=== PATIENT | female | born 1940 | race Caucasian/White ===

== ENCOUNTER → 2017-03-22 13:11 | Outpatient (CLI) | payer MEDICARE, SELFPAY ==
[2017-03-22 17:08] LABS: Absolute Lymphocyte Count 2.73 X10^3/ul (0.83-4.51); Absolute Neutrophil Count 9.5 X10^3/uL (2.0-7.7); Basophil# 0.04 X10^3/uL; Basophil% 0.3 % (0-1); Eosinophil# 0.24 X10^3/uL; Eosinophils% 1.8 % (0-5); Hematocrit 39.9 % (37-47); Hemoglobin 13.5 g/dl (12.0-15.0); Lymphocyte # 2.73 X10^3/ul (4.0); Lymphocyte % 20.4 % (19-41); Mean Corp Hgb Conc 33.8 g/gl (32-36); Mean Corpuscular Volume 88.7 fL (81-99); Mean Platelet Vol. 10.8 fl (6.2-12.0); Monocyte# 0.89 X10^3/uL; Monocyte% 6.6 % (0-10); Neutrophil # 9.48 X10^3/uL (2.7-7.7); Neutrophil % 70.7 % (47-70); Platelet Count 264 K/mm3 (150-450); RBC Distribution Width CV 12.9 % (11.6-14.6); RBC Distribution Width SD 41.7 fl (35.1-43.9); White Blood Count 13.4 K/mm3 (4.4-11.0)
[2017-03-22 17:13] LABS: POSITIVE COUNT NO; POSITIVE DIFFERENTIAL NO; POSITIVE MORPHOLOGY NO
[2017-03-22 17:23] LABS: Vitamin D,25 Hydroxy 24.8 ng/mL (19.95-100.01)
[2017-03-22 17:29] LABS: AST(SGOT) 24 U/L (15-37); Alanine Aminotransfer ALT/SGPT 26 U/L (13-56); Albumin, Serum 3.6 g/dL (3.2-5.0); Alkaline Phosphatase 100 U/L (45-117); Anion Gap 10 (5-15); BUN 21 mg/dL (7-18); BUN/Creat Ratio 22.6 RATIO (10-20); Calcium,Total 8.8 mg/dL (8.5-10.1); Chloride 104 mmol/L (98-107); Creatinine, Serum 0.93 mg/dL (0.55-1.02); EST Glomerular Filtration Rate 62 mL/min (>60); Est Glom Filt Rate - Afr Amer 76 mL/min (>60); Globulin 3.5 g/dL (2.2-4.2); Glucose 139 mg/dL (74-106); Potassium 4.2 mmol/L (3.5-5.1); Protein, Total 7.1 g/dL (6.4-8.2); Sodium Level 138 mmol/L (136-145); Thyroid Stim Hormone (TSH) 1.09 uIU/mL (0.358-3.74)
[2017-03-23 11:21] LABS: Hemoglobin A1c 7.8 % (4.2-6.3)
== END ==
PROVIDERS: Family Provider Family Medicine Geriatric Medicine; PCP Family Medicine Geriatric Medicine; Visit Provider Family Medicine Geriatric Medicine
DX: I10 Essential (primary) hypertension (principal); E55.9 Vitamin D deficiency, unspecified; E16.2 Hypoglycemia, unspecified
CPT/HCPCS: 36415; 80053; 82306; 83036; 84443; 85025

== ENCOUNTER 2017-04-14 10:00 | Outpatient (RCR) | payer MEDICARE, SELFPAY | END 2017-04-14 10:01 | disposition home or self-care (01) | LOC: DC 10:00 | PROVIDERS: Family Provider Family Medicine Geriatric Medicine; PCP Family Medicine Geriatric Medicine; Visit Provider Family Medicine Geriatric Medicine | DX: E11.9 Type 2 diabetes mellitus without complications (principal); Z71.3 Dietary counseling and surveillance | CPT/HCPCS: 97802; G0108 ==

== ENCOUNTER 2017-05-11 10:25 | Outpatient (RCR) | payer MEDICARE, SELFPAY | END 2017-05-15 23:59 | LOC: DC 10:25 | PROVIDERS: Family Provider Family Medicine Geriatric Medicine; PCP Family Medicine Geriatric Medicine; Visit Provider Family Medicine Geriatric Medicine | DX: E11.9 Type 2 diabetes mellitus without complications (principal); Z71.3 Dietary counseling and surveillance | CPT/HCPCS: 97803 ==

== ENCOUNTER → 2017-05-19 16:04 | Outpatient (CLI) | payer MEDICARE, SELFPAY ==
--- NOTE | 2017-05-19 16:09 | MRI_ITS ---
STUDY: MRI LUMBAR SPINE WITHOUT CONTRAST REASON FOR EXAM: Female, 77 years old. WORSENING LBP, H/O ARTHRITIS TECHNIQUE: Standardized fat and water weighted pulse sequences were obtained in the sagittal and axial planes. COMPARISON: None FINDINGS: T12-L1: Endplate spondylosis. Decreased disc height and small circumferential disc bulge. Degenerative changes of the bilateral facet joints. Mild narrowing of the central canal and bilateral intervertebral neural foramina. Normal lumbar lordosis. There is no substantial scoliosis. Normal conus medullaris that terminates at the L1 level L1-2: Endplate spondylosis. Decreased disc height and small circumferential disc bulge. Degenerative changes of the bilateral facet joints. Mild narrowing of the central canal and bilateral intervertebral neural foramina. L2-3: Endplate spondylosis. Decreased disc height and small circumferential disc bulge. Degenerative changes of the bilateral facet joints. Mild narrowing of the central canal and bilateral intervertebral neural foramina. L3-4: Endplate spondylosis. Decreased disc height and small circumferential disc bulge. Degenerative changes of the bilateral facet joints. Mild narrowing of the central canal and bilateral intervertebral neural foramina. L4-5: Endplate spondylosis. Decreased disc height and small circumferential disc bulge. Degenerative changes of the bilateral facet joints. Mild narrowing of the central canal and bilateral intervertebral neural foramina. L5-S1: Endplate spondylosis. Decreased disc height and small circumferential disc bulge. Degenerative changes of the bilateral facet joints. Mild narrowing of the central canal and moderate narrowing of the bilateral intervertebral neural foramina. Normal visualized sacral ala. There are multiple small bilateral renal cysts. MRI/Spine Lumbar (Routine) IMPRESSION: Multilevel degenerative changes, as described above. Electronically Signed: Sugar Cuba MD at 6:58 EDT Tel , Service support ,
== END ==
PROVIDERS: Family Provider Family Medicine Geriatric Medicine; PCP Family Medicine Geriatric Medicine; Visit Provider Anesthesiology Pain Medicine
DX: M54.9 Dorsalgia, unspecified (principal); M79.606 Pain in leg, unspecified
CPT/HCPCS: 72148

== ENCOUNTER 2017-05-20 15:24 | Outpatient (RCR) | payer MEDICARE, SELFPAY | END 2017-06-14 23:59 | LOC: DC 15:24 | PROVIDERS: Family Provider Family Medicine Geriatric Medicine; PCP Family Medicine Geriatric Medicine; Visit Provider Family Medicine Geriatric Medicine | DX: E11.9 Type 2 diabetes mellitus without complications (principal); Z71.3 Dietary counseling and surveillance | CPT/HCPCS: G0109 ==

== ENCOUNTER → 2017-06-23 13:18 | Outpatient (CLI) | payer MEDICARE, SELFPAY ==
[2017-06-23 17:01] LABS: Absolute Lymphocyte Count 2.21 X10^3/ul (0.83-4.51); Basophil# 0.03 X10^3/uL; Basophil% 0.2 % (0-1); Eosinophil# 0.08 X10^3/uL; Eosinophils% 0.7 % (0-5); Hemoglobin 13.9 g/dl (12.0-15.0); Lymphocyte # 2.21 X10^3/ul (4.0); Lymphocyte % 18.2 % (19-41); Mean Corp Hgb Conc 33.9 g/gl (32-36); Mean Corpuscular Hgb 30.4 pg (27.0-32.0); Mean Corpuscular Volume 89.7 fL (81-99); Mean Platelet Vol. 10.9 fl (6.2-12.0); Monocyte# 0.81 X10^3/uL; Monocyte% 6.7 % (0-10); Neutrophil # 8.98 X10^3/uL (2.7-7.7); Platelet Count 257 K/mm3 (150-450); RBC Distribution Width CV 13.7 % (11.6-14.6); RBC Distribution Width SD 44.4 fl (35.1-43.9); Red Blood Count 4.57 M/mm3 (4.2-5.4); White Blood Count 12.1 K/mm3 (4.4-11.0)
[2017-06-23 17:02] LABS: POSITIVE COUNT NO; POSITIVE DIFFERENTIAL NO; POSITIVE MORPHOLOGY NO
[2017-06-23 17:26] LABS: ALB/GLOB Ratio 1.1 RATIO (0.9-2.4); AST(SGOT) 20 U/L (15-37); Alanine Aminotransfer ALT/SGPT 25 U/L (13-56); Albumin, Serum 3.8 g/dL (3.2-5.0); Alkaline Phosphatase 75 U/L (45-117); Anion Gap 11 (5-15); BUN 22 mg/dL (7-18); BUN/Creat Ratio 16.3 RATIO (10-20); Calcium,Total 9.2 mg/dL (8.5-10.1); Chloride 106 mmol/L (98-107); Creatinine, Serum 1.35 mg/dL (0.55-1.02); EST Glomerular Filtration Rate 41 mL/min (>60); Est Glom Filt Rate - Afr Amer 49 mL/min (>60); Globulin 3.4 g/dL (2.2-4.2); Glucose 113 mg/dL (74-106); Potassium 4.5 mmol/L (3.5-5.1); Protein, Total 7.2 g/dL (6.4-8.2); Sodium Level 140 mmol/L (136-145); Thyroid Stim Hormone (TSH) 0.69 uIU/mL (0.358-3.74)
[2017-06-23 17:55] LABS: Vitamin D,25 Hydroxy 41.1 ng/mL (29.95-100.01)
== END ==
PROVIDERS: Family Provider Family Medicine Geriatric Medicine; PCP Family Medicine Geriatric Medicine; Visit Provider Family Medicine Geriatric Medicine
DX: I10 Essential (primary) hypertension (principal); E55.9 Vitamin D deficiency, unspecified
CPT/HCPCS: 36415; 80053; 82306; 84443; 85025

== ENCOUNTER 2017-07-07 13:56 | Outpatient (RCR) | payer MEDICARE, SELFPAY | END 2017-07-15 23:59 | LOC: DC 13:56 | PROVIDERS: Family Provider Family Medicine Geriatric Medicine; PCP Family Medicine Geriatric Medicine; Visit Provider Family Medicine Geriatric Medicine | DX: E11.9 Type 2 diabetes mellitus without complications (principal); Z71.3 Dietary counseling and surveillance | CPT/HCPCS: G0109 ==

== ENCOUNTER 2017-07-28 15:43 | Outpatient (RCR) | payer MEDICARE, SELFPAY | END 2017-08-14 23:59 | LOC: DC 15:43 | PROVIDERS: Family Provider Family Medicine Geriatric Medicine; PCP Family Medicine Geriatric Medicine; Visit Provider Family Medicine Geriatric Medicine | DX: E11.9 Type 2 diabetes mellitus without complications (principal); Z71.3 Dietary counseling and surveillance | CPT/HCPCS: G0109 ==

== ENCOUNTER 2017-08-25 15:11 | Outpatient (RCR) | payer MEDICARE, SELFPAY | END 2017-09-14 23:59 | LOC: DC 15:11 | PROVIDERS: Family Provider Family Medicine Geriatric Medicine; PCP Family Medicine Geriatric Medicine; Visit Provider Family Medicine Geriatric Medicine | DX: E11.9 Type 2 diabetes mellitus without complications (principal); Z71.3 Dietary counseling and surveillance | CPT/HCPCS: G0109 ==

== ENCOUNTER → 2017-09-22 11:50 | Outpatient (CLI) | payer MEDICARE, SELFPAY ==
[2017-09-22 12:53] LABS: Absolute Lymphocyte Count 2.12 X10^3/ul (0.83-4.51); Absolute Neutrophil Count 6.8 X10^3/uL (2.0-7.7); Basophil# 0.04 X10^3/uL; Basophil% 0.4 % (0-1); Hematocrit 39.7 % (37-47); Hemoglobin 13.3 g/dl (12.0-15.0); Lymphocyte # 2.12 X10^3/ul (4.0); Lymphocyte % 21.5 % (19-41); Mean Corp Hgb Conc 33.5 g/gl (32-36); Mean Corpuscular Hgb 30.3 pg (27.0-32.0); Mean Corpuscular Volume 90.4 fL (81-99); Mean Platelet Vol. 10.4 fl (6.2-12.0); Monocyte# 0.67 X10^3/uL; Monocyte% 6.8 % (0-10); Neutrophil % 69.2 % (47-70); Platelet Count 228 K/mm3 (150-450); RBC Distribution Width SD 42.6 fl (35.1-43.9); Red Blood Count 4.39 M/mm3 (4.2-5.4); White Blood Count 9.8 K/mm3 (4.4-11.0)
[2017-09-22 13:02] LABS: POSITIVE COUNT NO; POSITIVE DIFFERENTIAL NO; POSITIVE MORPHOLOGY NO
[2017-09-22 13:19] LABS: Vitamin D,25 Hydroxy 34.6 ng/mL (29.95-100.01)
[2017-09-22 13:25] LABS: ALB/GLOB Ratio 1.2 RATIO (0.9-2.4); AST(SGOT) 21 U/L (15-37); Alanine Aminotransfer ALT/SGPT 24 U/L (13-56); Albumin, Serum 3.8 g/dL (3.2-5.0); Alkaline Phosphatase 64 U/L (45-117); Anion Gap 11 (5-15); BUN 21 mg/dL (7-18); BUN/Creat Ratio 16.3 RATIO (10-20); Calcium,Total 9.3 mg/dL (8.5-10.1); Chloride 107 mmol/L (98-107); Creatinine, Serum 1.29 mg/dL (0.55-1.02); EST Glomerular Filtration Rate 43 mL/min (>60); Est Glom Filt Rate - Afr Amer 52 mL/min (>60); Globulin 3.2 g/dL (2.2-4.2); Glucose 99 mg/dL (74-106); Potassium 4.7 mmol/L (3.5-5.1); Sodium Level 142 mmol/L (136-145); Thyroid Stim Hormone (TSH) 0.38 uIU/mL (0.358-3.74)
== END ==
PROVIDERS: Family Provider Family Medicine Geriatric Medicine; PCP Family Medicine Geriatric Medicine; Visit Provider Family Medicine Geriatric Medicine
DX: E11.9 Type 2 diabetes mellitus without complications (principal); E55.9 Vitamin D deficiency, unspecified; I10 Essential (primary) hypertension
CPT/HCPCS: 36415; 80053; 82306; 84443; 85025

== ENCOUNTER → 2017-10-11 16:27 | Outpatient (CLI) | payer MEDICARE, SELFPAY | PROVIDERS: Family Provider Family Medicine Geriatric Medicine; PCP Family Medicine Geriatric Medicine; Visit Provider Family Medicine Geriatric Medicine | DX: R68.83 Chills (without fever) (principal) ==

== ENCOUNTER → 2017-10-13 12:48 | Outpatient (CLI) | payer MEDICARE, SELFPAY | PROVIDERS: Family Provider Family Medicine Geriatric Medicine; PCP Family Medicine Geriatric Medicine; Visit Provider Family Medicine Geriatric Medicine | DX: R68.83 Chills (without fever) (principal) | CPT/HCPCS: 87633 ==

== ENCOUNTER 2017-10-26 08:37 | Outpatient (RCR) | payer MEDICARE, SELFPAY | END 2017-10-26 23:59 | LOC: DC 08:37 | PROVIDERS: Family Provider Family Medicine Geriatric Medicine; PCP Family Medicine Geriatric Medicine; Visit Provider Family Medicine Geriatric Medicine | DX: E11.9 Type 2 diabetes mellitus without complications (principal); Z71.3 Dietary counseling and surveillance | CPT/HCPCS: 97803 ==

== ENCOUNTER → 2018-03-23 15:18 | Outpatient (CLI) | payer MEDICARE, SELFPAY ==
[2018-03-23 16:48] LABS: Absolute Lymphocyte Count 2.87 X10^3/ul (0.83-4.51); Absolute Neutrophil Count 9.2 X10^3/uL (2.0-7.7); Basophil# 0.04 X10^3/uL; Basophil% 0.3 % (0-1); Eosinophil# 0.12 X10^3/uL; Eosinophils% 0.9 % (0-5); Hematocrit 39.8 % (37-47); Hemoglobin 13.1 g/dl (12.0-15.0); Lymphocyte # 2.87 X10^3/ul (4.0); Lymphocyte % 21.9 % (19-41); Mean Corp Hgb Conc 32.9 g/gl (32-36); Mean Corpuscular Hgb 29.7 pg (27.0-32.0); Mean Corpuscular Volume 90.2 fL (81-99); Mean Platelet Vol. 10.9 fl (6.2-12.0); Monocyte# 0.87 X10^3/uL; Monocyte% 6.6 % (0-10); Neutrophil # 9.18 X10^3/uL (2.7-7.7); Neutrophil % 70.1 % (47-70); Platelet Count 248 K/mm3 (150-450); RBC Distribution Width CV 13.1 % (11.6-14.6); RBC Distribution Width SD 42.8 fl (35.1-43.9); Red Blood Count 4.41 M/mm3 (4.2-5.4); White Blood Count 13.1 K/mm3 (4.4-11.0)
[2018-03-23 16:55] LABS: POSITIVE COUNT NO; POSITIVE DIFFERENTIAL NO; POSITIVE MORPHOLOGY NO
[2018-03-23 17:08] LABS: ALB/GLOB Ratio 1.3 RATIO (0.9-2.4); AST(SGOT) 28 U/L (15-37); Alanine Aminotransfer ALT/SGPT 35 U/L (13-56); Alkaline Phosphatase 68 U/L (45-117); Anion Gap 12 (5-15); BUN 33 mg/dL (7-18); BUN/Creat Ratio 20.9 RATIO (10-20); Calcium,Total 9.5 mg/dL (8.5-10.1); Chloride 106 mmol/L (98-107); Creatinine, Serum 1.58 mg/dL (0.55-1.02); EST Glomerular Filtration Rate 34 mL/min (>60); Est Glom Filt Rate - Afr Amer 41 mL/min (>60); Glucose 113 mg/dL (74-106); Potassium 4.5 mmol/L (3.5-5.1); Sodium Level 139 mmol/L (136-145); Thyroid Stim Hormone (TSH) 0.19 uIU/mL (0.358-3.74)
[2018-03-23 17:28] LABS: Vitamin D,25 Hydroxy 30.8 ng/mL (29.95-100.01)
== END ==
PROVIDERS: Family Provider Family Medicine Geriatric Medicine; PCP Family Medicine Geriatric Medicine; Visit Provider Family Medicine Geriatric Medicine
DX: E11.9 Type 2 diabetes mellitus without complications (principal); E55.9 Vitamin D deficiency, unspecified; I10 Essential (primary) hypertension
CPT/HCPCS: 36415; 80053; 82306; 84443; 85025

== ENCOUNTER → 2018-05-10 09:13 | Outpatient (CLI) | payer MEDICARE, SELFPAY ==
[2018-05-10 13:05] LABS: Thyroid Stim Hormone (TSH) 1.28 uIU/mL (0.358-3.74)
== END ==
PROVIDERS: Family Provider Family Medicine Geriatric Medicine; PCP Family Medicine Geriatric Medicine; Visit Provider Family Medicine Geriatric Medicine
DX: E03.9 Hypothyroidism, unspecified (principal)
CPT/HCPCS: 36415; 84443

== ENCOUNTER → 2018-09-28 08:52 | Outpatient (CLI) | payer MEDICARE, SELFPAY ==
[2018-09-28 12:48] LABS: Absolute Lymphocyte Count 2.52 X10^3/uL (0.83-4.51); Absolute Neutrophil Count 6.5 X10^3/uL (2.0-7.7); Basophil# 0.05 X10^3/uL; Basophil% 0.5 % (0-1); Eosinophil# 0.24 X10^3/uL; Eosinophils% 2.4 % (0-5); Hematocrit 38.7 % (37-47); Hemoglobin 13.1 g/dL (12.0-15.0); Lymphocyte # 2.52 X10^3/ul (4.0); Lymphocyte % 25.6 % (19-41); Mean Corp Hgb Conc 33.9 g/dL (32-36); Mean Corpuscular Hgb 30.4 pg (27.0-32.0); Mean Corpuscular Volume 89.8 fL (81-99); Mean Platelet Vol. 10.2 fl (6.2-12.0); Monocyte# 0.58 X10^3/uL; Monocyte% 5.9 % (0-10); NRBC Flagged by Analyzer 0 % (0-5); Neutrophil # 6.45 X10^3/uL (2.7-7.7); Neutrophil % 65.4 % (47-70); Platelet Count 211 K/mm3 (150-450); RBC Distribution Width CV 12.7 % (11.6-14.6); RBC Distribution Width SD 42.1 fl (35.1-43.9); Red Blood Count 4.31 M/mm3 (4.2-5.4); White Blood Count 9.9 K/mm3 (4.4-11.0)
[2018-09-28 13:08] LABS: ALB/GLOB Ratio 1.1 RATIO (0.9-2.4); AST(SGOT) 20 U/L (15-37); Alanine Aminotransfer ALT/SGPT 28 U/L (13-56); Albumin, Serum 3.6 g/dL (3.2-5.0); Alkaline Phosphatase 96 U/L (45-117); Anion Gap 9 (5-15); BUN 31 mg/dL (7-18); BUN/Creat Ratio 26.5 RATIO (10-20); Calcium,Total 9.3 mg/dL (8.5-10.1); Chloride 107 mmol/L (98-107); Creatinine, Serum 1.17 mg/dL (0.55-1.02); EST Glomerular Filtration Rate 48 mL/min (>60); Est Glom Filt Rate - Afr Amer 58 mL/min (>60); Globulin 3.4 g/dL (2.2-4.2); Glucose 101 mg/dL (74-106); Potassium 4.4 mmol/L (3.5-5.1); Sodium Level 142 mmol/L (136-145); Thyroid Stim Hormone (TSH) 1.41 uIU/mL (0.358-3.74); Vitamin D,25 Hydroxy 25.1 ng/mL (29.95-100.01)
== END ==
PROVIDERS: Family Provider Family Medicine Geriatric Medicine; PCP Family Medicine Geriatric Medicine; Visit Provider Family Medicine Geriatric Medicine
DX: E11.9 Type 2 diabetes mellitus without complications (principal); E55.9 Vitamin D deficiency, unspecified; I10 Essential (primary) hypertension
CPT/HCPCS: 36415; 80053; 82306; 84443; 85025

== ENCOUNTER → 2019-02-02 16:05 | Outpatient (CLI) | payer MEDICARE, SELFPAY ==
[2019-02-02 17:04] LABS: Absolute Lymphocyte Count 2.78 X10^3/uL (0.83-4.51); Absolute Neutrophil Count 6.5 X10^3/uL (2.0-7.7); Basophil# 0.04 X10^3/uL; Basophil% 0.4 % (0-1); Eosinophil# 0.23 X10^3/uL; Eosinophils% 2.2 % (0-5); Hematocrit 37.7 % (37-47); Hemoglobin 12.4 g/dL (12.0-15.0); Lymphocyte # 2.78 X10^3/ul (4.0); Lymphocyte % 26.9 % (19-41); Mean Corp Hgb Conc 32.9 g/dL (32-36); Mean Corpuscular Hgb 29.7 pg (27.0-32.0); Mean Corpuscular Volume 90.4 fL (81-99); Monocyte# 0.72 X10^3/uL; NRBC Flagged by Analyzer 0 % (0-5); Neutrophil # 6.52 X10^3/uL (2.7-7.7); Neutrophil % 63.2 % (47-70); Platelet Count 208 K/mm3 (150-450); RBC Distribution Width CV 12.8 % (11.6-14.6); RBC Distribution Width SD 42.2 fl (35.1-43.9); Red Blood Count 4.17 M/mm3 (4.2-5.4); White Blood Count 10.3 K/mm3 (4.4-11.0)
[2019-02-02 17:22] LABS: ALB/GLOB Ratio 1.2 RATIO (0.9-2.4); AST(SGOT) 21 U/L (15-37); Alanine Aminotransfer ALT/SGPT 21 U/L (13-56); Alkaline Phosphatase 89 U/L (45-117); Anion Gap 8 (5-15); BUN 28 mg/dL (7-18); BUN/Creat Ratio 23.7 RATIO (10-20); Calcium,Total 9.7 mg/dL (8.5-10.1); Chloride 111 mmol/L (98-107); Creatinine, Serum 1.18 mg/dL (0.55-1.02); EST Glomerular Filtration Rate 47 mL/min (>60); Est Glom Filt Rate - Afr Amer 57 mL/min (>60); Free T3 2.7 pg/mL (2.18-3.98); Globulin 3.3 g/dL (2.2-4.2); Glucose 103 mg/dL (74-106); Potassium 4.3 mmol/L (3.5-5.1); Protein, Total 7.3 g/dL (6.4-8.2); Sodium Level 143 mmol/L (136-145); T4 Free Direct 1.43 ng/dL (0.76-1.46); Thyroid Stim Hormone (TSH) 1.28 uIU/mL (0.358-3.74)
== END ==
PROVIDERS: Visit Provider Family Medicine
DX: E03.9 Hypothyroidism, unspecified (principal); R53.83 Other fatigue; Z51.81 Encounter for therapeutic drug level monitoring
CPT/HCPCS: 36415; 80053; 84439; 84443; 84481; 85025

== ENCOUNTER → 2019-04-05 08:26 | Outpatient (CLI) | payer MEDICARE, SELFPAY ==
[2019-04-05 13:11] LABS: Free T3 3.5 pg/mL (2.18-3.98); T4 Free Direct 0.91 ng/dL (0.76-1.46); Thyroid Stim Hormone (TSH) 2.48 uIU/mL (0.358-3.74)
== END ==
PROVIDERS: Family Provider Family Medicine; PCP Family Medicine; Visit Provider Family Medicine
DX: E03.9 Hypothyroidism, unspecified (principal)
CPT/HCPCS: 36415; 84439; 84443; 84481

== ENCOUNTER 2019-11-04 17:44 | Emergency (ER) | payer MEDICARE, SELFPAY ==
[2019-11-04 17:46] VITALS: BP 151/74; PULSE 75; RESP 12; TEMP 36.1; O2SAT 98; BMI 32.9
--- NOTE | 2019-11-04 18:09 | ED.DCSUM_ITS ---
History of Present Illness Chief Complaint: Back Informant: Patient Occurred: Days - 3 Mechanism/Context: Slip - fell against countertop in her kitchen, vs. left ribcage/mid-back Location: left flank Quality of Pain: Aching Current Severity: Severe Maximum Severity: Severe Worsened by: movement Relieved by: remaining still, some by OTC pain reliever Associated Symptoms: Negative for: Parasthesias, Weakness, Loss of function, Inability to ambulate, Loss of consciousness, Amnesia Narrative: Patient accidentally fell against her countertop edge. She did not have any significant pain immediately, but gradually has worsened over the last couple days and now she is having trouble changing positions when getting into bed, up from a sitting position, etc. No bowel or bladder dysfunction. No pain radiating down of her lower extremities, but she can make the pain worse in her left mid back by raising either 1 of her legs up while in sitting position. She takes aspirin every other day. No anticoagulants. She has had no abdominal pain, chest pain, shortness of breath, pleuritic discomfort, or hematuria. - Past Medical History (1) Hypothyroid Status: Chronic (2) Hyperlipidemia Status: Chronic (3) Hypertension Status: Chronic (4) Type 2 diabetes mellitus Status: Chronic Past Medical History - Allergies and Home Meds Allergies/Adverse Reactions: Allergies codeine Adverse Reaction (Verified 11/04/19 17:46) Nausea Primary Care Physician: Sugey Simpson DO [Primary Care Provider] - Past Medical History: None Lives: With Family Smoking Status: Never smoker Review of Systems General: Denies: Chills, Fever, Sweats Eyes: Denies: Visual changes - bilaterally, Diplopia ENT: Denies: Rhinorrhea, Sore throat Cardiovascular: Denies: Chest pain, Palpitations Respiratory: Denies: Dyspnea, Cough, Dyspnea on exertion Gastrointestinal: Denies: Abdominal pain, Nausea, Vomiting, Diarrhea, Melena, Hematochezia Genitourinary: Denies: Dysuria, Hematuria, Frequency Musculoskeletal: Reports: Back pain. Denies: Neck pain, Swelling, Extremity Pain Skin: Denies: Rash, Wounds Neurological: Denies: Headache, Weakness, Numbness Physical Exam Vital Signs/Narrative: Vital Signs Temp Pulse Resp BP Pulse Ox 11/04/19 17:46 97 F L 75 12 151/74 H 98 Inital Vital Signs reviewed: Yes General: Well nourished, Well developed, - - NAD Head: Normocephalic, Atraumatic Eyes: Perrl, EOMI ENT: TM's clear, No hemotympanum or drainage, No trauma Neck: Nontender, Full ROM. Negative for: Spinal Tenderness Cardiovascular: Regular rate, Regular rhythm, No murmurs Respiratory: No distress, CTA bilaterally, Chest nontender Abdomen: Soft, Nontender, Nondistended, Normal bowel sounds Back: Paraspinal Tenderness - There is ecchymosis in the left lateral mid back, she is very tender in this area and specifically over posterior lateral rib cage around 8/9 rib. Coming around the side of her rib cage into the front, she is nontender. Equal breath sounds are heard bilaterally, no splinting with deep inspiration. 1 of the ecchymoses is as far around as the lateral breast, where there is no significant tenderness.. Negative for: Spinal Tenderness Extremeties: Atraumatic, range of motion throughout all 4 extremities. Negative straight leg raises bilateral lower extremities while sitting. Skin: Normal color, No rash Neurological: Alert, Oriented x3, Cranial nerves II-XII grossly intact, Normal Strength, Normal Sensation Psychological: Normal affect, Normal Mood Diagnostic/Tx/Re-eval Clinical Impression(s) from Imaging Studies Ribs w/Chest X-Ray 11/04/19 18:20 IMPRESSION: 1. No displaced rib fracture. 2. No pneumothorax or acute thoracic findings. Electronically Signed: Maryestelita Ariadne, at 19:12 EDT Tel , Service support , - Medical Decision Making X-rays are negative for any radiographically-visible fracture. She was given a Gaston which helped some with the pain. She is comfortable being discharged with a prescription for this to use as needed, and following up with her doctor. Other measures of supportive care advised along with ice packs. ED Disposition - Plan for ED Patient: Disposition: Home or Assisted Living Diagnosis: Contusion of rib on left side Instructions: ED Contusion Vs Minor Fx Rib Prescriptions: Hydrocodone Bitart/Apap 5-325 [Gaston 5MG-325MG] 1 tab PO Q4H PRN PRN 2 Days #10 tab PRN Reason: Pain Prescription Printed Referrals: Sugey Simpson DO [Primary Care Provider] - As Needed
--- NOTE | 2019-11-04 18:20 | RAD_ITS ---
STUDY: X-RAY - UNILATERAL RIBS ( LEFT ) WITH CHEST REASON FOR EXAM: Female, 79 years old. LEFT MID POSTERIOR RIB PAIN S/P FALLING INTO EDGE OF KITCHEN COUNTER x3 DAYS AGO, BRUISING TECHNIQUE - RIBS: 3 view(s) of the ribs. TECHNIQUE - CHEST: Frontal COMPARISON: None. FINDINGS: Lungs are clear. There is no pneumothorax, pulmonary edema, cardiac megaly or pleural effusions. There are no displaced rib fractures. These note that nondisplaced rib fractures are not well depicted with conventional imaging modalities. RAD/Ribs Uni Min 3V w/PA Chest IMPRESSION: 1. No displaced rib fracture. 2. No pneumothorax or acute thoracic findings. Electronically Signed: Symone Ron, at 19:12 EDT Tel , Service support ,
[2019-11-04] MEDS: HYDROcodone Bitartrate/Apap 5/325 Tablet PO (18:33)
[2019-11-04 19:38] VITALS: BP 161/67; PULSE 66; RESP 18; O2SAT 96
== END 2019-11-04 19:39 | disposition home or self-care (01) ==
PROVIDERS: Emergency Provider Emergency Medicine; PCP Family Medicine
DX: S20.212A Contusion of left front wall of thorax, initial encounter (principal); Y92.000 Kitchen of unspecified non-institutional (private) residence as the place of occurrence of the external cause; Y93.9 Activity, unspecified; W19.XXXA Unspecified fall, initial encounter; Y99.9 Unspecified external cause status; E03.9 Hypothyroidism, unspecified; E11.9 Type 2 diabetes mellitus without complications; E78.5 Hyperlipidemia, unspecified; I10 Essential (primary) hypertension; Z79.82 Long term (current) use of aspirin; Z88.5 Allergy status to narcotic agent
CPT/HCPCS: 71101; 99283

== ENCOUNTER → 2020-03-25 09:53 | Outpatient (CLI) | payer MEDICARE, SELFPAY ==
[2020-03-25 12:09] LABS: Absolute Lymphocyte Count 2.29 X10^3/uL (0.83-4.51); Absolute Neutrophil Count 6.8 X10^3/uL (2.0-7.7); Basophil# 0.05 X10^3/uL; Basophil% 0.5 % (0-1); Eosinophils% 3.9 % (0-5); Hematocrit 39.5 % (37-47); Hemoglobin 12.7 g/dL (12.0-15.0); Lymphocyte # 2.29 X10^3/ul (4.0); Lymphocyte % 22.1 % (19-41); Mean Corp Hgb Conc 32.2 g/dL (32-36); Mean Corpuscular Volume 90.2 fL (81-99); Mean Platelet Vol. 10.2 fl (6.2-12.0); Monocyte# 0.73 X10^3/uL; Monocyte% 7.1 % (0-10); NRBC Flagged by Analyzer 0 % (0-5); Neutrophil # 6.84 X10^3/uL (2.7-7.7); Neutrophil % 66.1 % (47-70); Platelet Count 209 K/mm3 (150-450); RBC Distribution Width CV 12.8 % (11.6-14.6); RBC Distribution Width SD 42.6 fl (35.1-43.9); Red Blood Count 4.38 M/mm3 (4.2-5.4); White Blood Count 10.3 K/mm3 (4.4-11.0)
[2020-03-25 12:31] LABS: ALB/GLOB Ratio 1.1 RATIO (0.9-2.4); AST(SGOT) 19 U/L (15-37); Alanine Aminotransfer ALT/SGPT 24 U/L (13-56); Albumin, Serum 3.7 g/dL (3.2-5.0); Alkaline Phosphatase 84 U/L (45-117); Anion Gap 5 (5-15); BUN 22 mg/dL (7-18); BUN/Creat Ratio 18.2 RATIO (10-20); Calcium,Total 9.3 mg/dL (8.5-10.1); Chloride 107 mmol/L (98-107); Cholesterol 160 mg/dL (200); Creatinine, Serum 1.21 mg/dL (0.55-1.02); EST Glomerular Filtration Rate 46 mL/min (>60); Est Glom Filt Rate - Afr Amer 55 mL/min (>60); Free T3 3.3 pg/mL (2.18-3.98); Globulin 3.3 g/dL (2.2-4.2); Glucose 159 mg/dL (74-106); High Density Lipoprotein 72 mg/dL; Potassium 4.7 mmol/L (3.5-5.1); Sodium Level 137 mmol/L (136-145); T4 Free Direct 0.88 ng/dL (0.76-1.46); Thyroid Stim Hormone (TSH) 1.64 uIU/mL (0.358-3.74); Triglycerides 175 mg/dL; Very Low Density Lipoprotein 35 mg/dL (5-40)
== END ==
PROVIDERS: PCP Family Medicine; Visit Provider Family Medicine
DX: Z51.81 Encounter for therapeutic drug level monitoring (principal); E03.9 Hypothyroidism, unspecified; E11.9 Type 2 diabetes mellitus without complications; E78.5 Hyperlipidemia, unspecified
CPT/HCPCS: 36415; 80053; 80061; 84439; 84443; 84481; 85025

== ENCOUNTER → 2020-04-04 13:46 | Outpatient (CLI) | payer MEDICARE, SELFPAY ==
--- NOTE | 2020-04-04 13:49 | BI_ITS ---
MAMMOGRAPHY - BILATERAL SCREENING REASON FOR EXAM: Female, 80 years old. Routine annual screening examination. PERTINENT HISTORY: Non-contributory. TECHNIQUE: Digital bilateral breast simon (3D mammographic acquisition) in the CC and MLO projections. 2-D mediolateral oblique (MLO) and craniocaudad (CC) views of both breasts were obtained. CAD: Full Field Digital Mammography with Computer Added Detection was performed. COMPARISON: Comparison is made with prior study dated 01/09/2015 and 01/08/2014. FINDINGS: Breast Composition: The breasts are almost entirely fatty. There are no dominant masses or suspicious calcifications. Stable benign appearing lymph node in the upper outer quadrant of the left breast. No other significant abnormalities are identified. There has been no significant change since the prior study. BI/SCRN MAMM (CAD)W/SIMON BILAT IMPRESSION: Stable bilateral screening mammogram. Yearly follow-up mammogram recommended. (A) ASSESSMENT CATEGORY: BIRADS Category 2: Benign. A letter regarding these results will be sent to the patient by the facility within 30 days. Approximately 10% of breast cancers are not detected by mammography. A normal mammogram should not delay biopsy of a clinically suspicious abnormality. [id number] Electronically Signed: Blaine Velasquez MD at 15:45 EST , Service support ,
--- NOTE | 2020-04-04 13:55 | BD_ITS ---
STUDY: DUAL ENERGY X-RAY ABSORPTIOMETRY / DXA REASON FOR EXAM: Female, 80 years old. Age of josé miguel 43. Pat is 186.7# and 61 and quot; a loss of 4+ and quot; per pat. Past hx of using an HRT. Takes 500 mg of calcium and a multi-vit. Takes an inhaler prn for asthma. Does a little exercising. Hx of a left foot fx. TECHNIQUE: Bone Mineral Density (BMD) measurements of lumbar spine and bilateral hips were obtained. COMPARISON: Comparison is made with prior study dated 04/03/2015. FINDINGS: Lumbar Spine (L1-L4): g/cm2 (0.939) / T-score (-2.0) / Z-score (-0.2) Findings are suggestive of osteopenia with a moderate fracture risk. Increased kyphosis. Left Femur Total: g/cm2 (0.732) / T-score (-2.2) / Z-score (-0.2) Left Femoral Neck: g/cm2 (0.608) / T-score (-3.1) / Z-score (-1.0) Right Femur Total: g/cm2 (0.638) / T-score (-2.9) / Z-score (-1.0) Right Femoral Neck: g/cm2 (0.597) / T-score (-3.2) / Z-score (-1.1) The T-Scores on the most recent prior examination were: Lumbar Spine (L1-L4): There has been improvement of bone density since the previous examination. Left Femur Total: which represents a worsening of 6%. Right Femur Total: which represents a worsening of 8.5%. BD/Dexa Bone Density Study IMPRESSION: The patient is considered osteoporotic as outlined below according to World Param Organization (WHO) criteria with a high fracture risk. There has been worsening of bone density since the previous examination. Reference Information: The T-score is the number of standard deviations above or below the standard which is normal for young adults at their peak bone mineral density. The World Health Organization (WHO) interprets the T-scores as follows: Above -1 Normal bone density Between -1 and -2.5 Osteopenia Equal to / or below -2.5 Osteoporosis As a practical clinical guideline, osteopenia may be graded as follows: Mild -1 through -1.5 Moderate -1.6 through -2.0 Severe -2.1 through -2.4 The Z-score is the number of standard deviations above or below age-matched controls. A Z-score of less than -1.5 would be considered abnormal. References: 1. NIH Osteoporosis and Related Bone Diseases www osteo.org 2. International Society for Clinical Densitometry www iscd.org 3. National Osteoporosis Foundation www nof.org Electronically Signed: Blaine Velasquez MD at 15:35 EST , Service support ,
== END ==
PROVIDERS: PCP Family Medicine; Referring Provider Family Medicine; Visit Provider Family Medicine
DX: Z12.31 Encounter for screening mammogram for malignant neoplasm of breast (principal); M81.0 Age-related osteoporosis without current pathological fracture
CPT/HCPCS: 77063; 77067; 77080

== ENCOUNTER → 2020-07-16 08:30 | Outpatient (CLI) | payer MEDICARE, SELFPAY ==
--- NOTE | 2020-07-16 08:46 | EKG12_ITS ---
Test Reason : PRE-OP Blood Pressure : / mmHG Vent. Rate : 078 BPM Atrial Rate : 078 BPM P-R Int : 208 ms QRS Dur : 086 ms QT Int : 366 ms P-R-T Axes : 039 -33 027 degrees QTc Int : 417 ms Normal sinus rhythm Left axis deviation Low voltage QRS Abnormal ECG Confirmed by RUTH NEVAREZ, VAISHNAVI ([id number]), senior technical editor WAYNE BARBER ([id number]) on 07/17/2020 1:05:00 PM Referred By: Parish Cruz Confirmed By:VAISHNAVI MIRANDA MD
--- NOTE | 2020-07-16 08:56 | RAD_ITS ---
STUDY: X-RAY CHEST REASON FOR EXAM: Female, 80 years old. PRE OP TECHNIQUE: PA and lateral views of the chest. COMPARISON: Comparison is made with prior study dated 11/04/2019. FINDINGS: There is hyperinflation of the lungs consistent with chronic obstructive lung disease (COPD). There is no demonstrated pleural abnormality. Normal size heart. Normal mediastinum and wandy. Normal visualized pulmonary arteries. There is atherosclerotic calcification of the aortic arch with tortuosity. There is demineralization of the osseous structures. Healed right rib fractures. There is no demonstrated abnormality of the visualized soft tissue structures of the upper abdomen. RAD/Chest PA and Lateral IMPRESSION: Hyperinflation. The lungs are clear. Electronically Signed: Blaine Velasquez MD at 14:40 EDT , Service support ,
[2020-07-16 10:45] LABS: Absolute Lymphocyte Count 1.99 X10^3/uL (0.83-4.51); Absolute Neutrophil Count 7.2 X10^3/uL (2.0-7.7); Basophil# 0.05 X10^3/uL; Basophil% 0.5 % (0-1); Eosinophil# 0.25 X10^3/uL; Eosinophils% 2.5 % (0-5); Hematocrit 40.1 % (37-47); Hemoglobin 13.2 g/dL (12.0-15.0); Lymphocyte # 1.99 X10^3/ul (0.83-4.51); Lymphocyte % 19.6 % (19-41); Mean Corp Hgb Conc 32.9 g/dL (32-36); Mean Corpuscular Hgb 29.3 pg (27.0-32.0); Mean Corpuscular Volume 88.9 fL (81-99); Mean Platelet Vol. 10.2 fl (6.2-12.0); Monocyte% 5.9 % (0-10); NRBC Flagged by Analyzer 0 % (0-5); Neutrophil # 7.21 X10^3/uL (2.7-7.7); Neutrophil % 71.2 % (47-70); Platelet Count 234 K/mm3 (150-450); RBC Distribution Width CV 12.6 % (11.6-14.6); RBC Distribution Width SD 41.4 fl (35.1-43.9); Red Blood Count 4.51 M/mm3 (4.2-5.4); White Blood Count 10.1 K/mm3 (4.4-11.0)
[2020-07-16 11:07] LABS: Anion Gap 7 (5-15); BUN 23 mg/dL (7-18); Calcium,Total 9.3 mg/dL (8.5-10.1); Chloride 106 mmol/L (98-107); Creatinine, Serum 1.35 mg/dL (0.55-1.02); EST Glomerular Filtration Rate 40 mL/min (>60); Est Glom Filt Rate - Afr Amer 49 mL/min (>60); Glucose 147 mg/dL (74-106); Sodium Level 137 mmol/L (136-145)
[2020-07-16 11:28] LABS: Hemoglobin A1c 6.7 % (3.8-5.6)
== END ==
PROVIDERS: PCP Family Medicine; Referring Provider Specialist; Visit Provider Specialist
DX: Z01.810 Encounter for preprocedural cardiovascular examination (principal); Z01.811 Encounter for preprocedural respiratory examination; I10 Essential (primary) hypertension; Z01.818 Encounter for other preprocedural examination; Z79.899 Other long term (current) drug therapy
CPT/HCPCS: 36415; 71046; 80048; 83036; 85025; 93005

== ENCOUNTER → 2020-07-19 07:03 | Outpatient (CLI) | payer MEDICARE, SELFPAY ==
--- NOTE | 2020-07-19 07:18 | CT_ITS ---
STUDY: CT SCAN LOWER EXTREMITY HIP RIGHT.[facility] protocol. REASON FOR EXAM: Female, 80 years old. VARUS DEFORMITY NOT ELSEWHERE,RIGHT KNEE RADIATION DOSAGE (If Supplied By Facility): CTDIvol = ( 18.84 ) mGy, DLP = ( 1095.01 ) mGycm. Individualized dose optimization techniques were used for this CT.? TECHNIQUE: Multiple axial tomographic images of the right hip joint, knee joint and ankle joint were obtained. Sagittal and coronal reconstruction was obtained as well. COMPARISON: None. FINDINGS: Imaging of the right hip joint was performed. Minimal joint space narrowing is seen. Imaging of the right knee joint was obtained. There is a [id number] degree of joint space narrowing involving the medial compartment of the knee joint with degenerative spur formation. Mild degree of patellofemoral osteoarthritis. Imaging of the ankle joint was obtained. No significant abnormality is seen. CT/Extremity Lower without Contra IMPRESSION: Mild to moderate degree of joint space narrowing involving the medial compartment and knee joint with degenerative spur formation of the distal femur. Electronically Signed: Blaine Velasquez MD at 11:06 EDT , Service support ,
== END ==
PROVIDERS: PCP Family Medicine; Referring Provider Specialist; Visit Provider Specialist
DX: M21.161 Varus deformity, not elsewhere classified, right knee (principal)
CPT/HCPCS: 73700

== ENCOUNTER → 2020-08-16 13:03 | Outpatient (CLI) | payer MEDICARE, SELFPAY ==
--- NOTE | 2020-08-16 13:15 | VDLE_ITS ---
Reason For Study: Pain RIGHT GSV is normal. CFV is compressible, spontaneous, phasic, competent and demonstrates normal augmentation. FV is compressible, spontaneous, phasic, competent and demonstrates normal augmentation. POP V is compressible, spontaneous, phasic, competent and demonstrates normal augmentation. T/P Trunk is compressible. PTV is compressible. RT PerV is compressible. Procedure This is a venous duplex using B-mode, color flow and spectral Doppler. Exam performed in department. A preliminary report was called and/or faxed to Judith. VL/Venous Duplex US, Unilateral Interpretation Summary Deep veins of the right lower extremity are patent and compressible segmentally . There is no evidence of right lower extremity deep vein thrombosis. Valvular competence rosario ears intact within the proximal deep venous system on the right . The right great saphenous vein a ppears patent and compressible segmentally. Ordering Physician: Luis Wong Referring Physician: Sugey Simpson Performed By: Rhea Trinh RVT
== END ==
PROVIDERS: PCP Family Medicine; Referring Provider Physician Assistant Surgical; Visit Provider Physician Assistant Surgical
DX: M79.661 Pain in right lower leg (principal)
CPT/HCPCS: 93971

== ENCOUNTER 2021-05-03 12:16 | Observation (INO) | payer MEDICARE, SELFPAY ==
[2021-05-03] VITALS (7 sets, daily range): BP systolic 109–180; BP diastolic 64–94; PULSE 61–76; RESP 17–20; TEMP 35.7–36.8; O2SAT 94–100; BMI 33.0; BMI 33.3
--- NOTE | 2021-05-03 12:32 | CT_ITS ---
2STUDY: CT CERVICAL SPINE WITHOUT CONTRAST REASON FOR EXAM: Female, 81 years old. Neck pain RADIATION DOSAGE (If Supplied By Facility): CTDIvol = ( 29.91 ) mGy, DLP = ( 606.93 ) mGycm TECHNIQUE: High resolution transaxial imaging was performed without contrast material. Sagittal and coronal images were reconstructed. Individualized dose optimization techniques were used for this CT. COMPARISON: None FINDINGS: Normal craniovertebral junction. There are degenerative changes of the anterior atlantoaxial articulation. Normal odontoid process. There is straightening of the normal cervical lordosis. No evidence of acute compression fracture deformity. The posterior elements appear intact. The alignment of the vertebral bodies are unremarkable. Severe disc space narrowing of C3-C4, C4-C5, C5-C6 and C6-C7 with narrowing of the central spinal canal and neural foramina stenosis markedly worse on the right side. Anterior degenerative osteophyte formations. No prevertebral soft tissue swelling. Atherosclerotic calcifications of the carotid arteries bilaterally. The visualized portions of lung apices demonstrate no evidence of pneumothorax. CT/Spine Cervical without Contras IMPRESSION: 1. Multilevel degenerative changes, as described above. 2. Straightening of the cervical spine which could be due to muscle spasm. 3. No evidence for acute fracture or subluxation. Electronically Signed: Sharath Thomas MD at 13:51 EDT ,
--- NOTE | 2021-05-03 12:32 | CT_ITS ---
STUDY: CT BRAIN WITHOUT CONTRAST REASON FOR EXAM: Female, 81 years old. Headache RADIATION DOSAGE (If Supplied By Facility): CTDIvol = ( 44.99 ) mGy, DLP = ( 745.49 ) mGycm TECHNIQUE: Transaxial CT imaging of the brain was performed without administration of intravenous contrast material. Individualized dose optimization techniques were used for this CT. COMPARISON: No relevant priors. FINDINGS: Normal soft tissue structures. Normal calvarium. Normal size ventricles and extra-axial spaces for the patient''s age. Normal white matter tracts of the cerebral hemispheres. Small dural based calcification in the right apex could be due to small calcified meningioma.. Normal basal ganglia and thalami. Normal brainstem. Normal cerebellum. There is no intracranial hemorrhage. There are no findings of an acute ischemic infarction. Normal visualized paranasal sinuses. CT/Brain/Head without Contrast IMPRESSION: No acute intracranial process. Electronically Signed: Sharath Thomas MD at 13:48 EDT ,
--- NOTE | 2021-05-03 12:36 | EDS_ITS ---
HPI History of Present Illness Chief Complaint: Nausea/Vomiting Narrative Narrative: 81-year-old female who is a poor informant and very hard of hearing presenting for dizziness. She states it feels like spinning. She is a mild headache and she states that she has been vomiting. She has been able to hold down some food and fluids. Patient saw her primary care physician previously for dizziness and states she was on some pills that she took for 10 days which helped the spinning, but she does not have these anymore. She has been experiencing intermittent episodes of this dizziness. She states that she believes it is coming from her neck on the left side. Patient denies any tr auma. No paresthesias. The patient does state that she was seen by her primary care physician about 2 months ago initially for neck pain and the dizziness. She has not had any follow-up. She denies chest pain, palpitations, shortness of breath. She denies abdominal pain. No urinary complaints. PFSH PFS Medical History COPD (chronic obstructive pulmonary disease) Hyperlipidemia Hypertension Thyroid disorder Home Medications levothyroxine 88 mcg tablet 88 mcg PO QDAY 06/30/17 [History Last Taken Unknown] lisinopril 10 mg tablet 10 mg PO QDAY 06/30/17 [History Last Taken Unknown] metformin 500 mg tablet 500 mg PO BID 06/30/17 [History Last Taken Unknown] pravastatin 20 mg tablet 20 mg PO QDAY 06/30/17 [History Last Taken Unknown] Allergy/AdvReac Type Severity Reaction Status Date / Time codeine AdvReac Nausea Verified 05/03/21 12:17 Family History (Updated 05/03/21 @ 17:08 by Wallace PERSAUD) Mother Colon cancer Father CVA (cerebral vascular accident) Heart disease Surgical History H/O abdominal hysterectomy H/O bladder repair surgery Hx of appendectomy Hx of right knee surgery Social History Smoking Status: Never smoker alcohol intake: never substance use type: does not use caffeine: Yes what type of physical activity do you participate in: walking seatbelt use: always do you feel safe at home: Yes additional social history: - Retired ROS ROS ED Constitutional Constitutional ED: Denies chills or fever(s) Eyes Eyes: Reports other Details: Vertiginous dizziness ENT ENT ED: Denies rhinorrhea or sore throat Cardiovascular Cardiovascular: Denies chest pain or palpitations Respiratory/Chest Respiratory/Chest: Denies cough or dyspnea Gastrointestinal Gastrointestinal: Reports nausea and vomiting; Denies abdominal pain, constipation or diarrhea Genitourinary Genitourinary ED: Denies dysuria or hematuria Musculoskeletal Musculoskeletal: Reports neck pain; Denies back pain Integumentary Denies rash Neurologic Neurologic: Reports headache(s); Denies paresthesias or weakness Psychiatric Psychiatric: Denies anxiety or depression EXAM Physical Exam Const Vital Signs: 05/03/21 12:17 05/03/21 15:05 Temperature 96.2 F L Temperature Source Temporal Pulse Rate 72 69 Respiratory Rate 20 H 17 Blood Pressure 174/93 H 109/94 H Blood Pressure Mean 120 99 Pulse Ox 97 99 Oxygen Delivery Method Room Air Room Air Positive well nourished General Appearance ED: NAD; Negative for pallor HEENT Reports normocephalic and moist mucous membranes HEENT Narrative: Reproducible vertiginous dizziness with Andrea-Hallpike exam. Difficult to assess nystagmus because the patient closes her eyes on exam. atraumatic Eyes PERRL and EOMs intact bilaterally Cardio regular rate and regular rhythm GI non-tender and non-distended Palpation: soft Neuro oriented x3, CN's II-XII intact bilaterally and no sensory deficits noted Sensorium / Orientation: awake and alert Motor Exam: strength 5/5 throughout Skin General Skin Exam: Negative for jaundice or pallor Rashes: no rashes MDM MDM MDM Narrative Medical decision making narrative: Patient presenting with nausea and vomiting associated with vertiginous dizziness. Unable to reproduce this. I am unable to get a good eye exam because he closes her eyes on Andrea-Hallpike maneuver. Patient given meclizine and Phenergan. Blood work is obtained and her CBC and CMP are normal. Urinalysis negative for infection. Patient to need to dizziness and obtain a CT of the brain which is negative for acute intracranial findings. CT cervical spine was performed due to the patient's pain. This does show straightening of the normal lordosis but shows no acute pathology. EKG is obtained and on my interpretation shows a normal sinus rhythm at a ventricular to 64 bpm with first-degree AV block. While the symptoms have improved patient still is unable to get up and walk. She has dizziness and nausea with every movement. At this point she will need to be hospitalized because her would not be able to care for her at home. Patient discussed with hospitalist for admission. Impression: 1. dizziness 2. Nausea/vomiting 3. Cervical strain Lab Data Attestation: I reviewed the patient's lab results. Labs: Laboratory Results - last 24 hr 05/03/21 05/03/21 05/03/21 12:25 12:25 15:00 WBC 11.0 RBC 4.52 Hgb 13.9 Hct 38.1 MCV 84.3 MCH 30.8 MCHC 36.5 H RDW Std Deviation 38.1 RDW Coeff of Jayla 12.5 Plt Count 238 MPV 9.9 Immature Gran % (Auto) 0.600 Neut % (Auto) 73.9 H Lymph % (Auto) 20.3 Loving % (Auto) 4.1 Eos % (Auto) 0.8 Baso % (Auto) 0.3 Absolute Neuts (auto) 8.2 H Absolute Lymphs (auto) 2.24 Nucleated RBC % 0 Sodium 139 Potassium 4.8 Chloride 109 H Carbon Dioxide 23.0 Anion Gap 7 BUN 20 H Creatinine 1.14 H Estim Creat Clear Calc 33.99 Est GFR (MDRD) Af Amer 59 L Est GFR (MDRD) Non-Af 49 L BUN/Creatinine Ratio 17.5 Glucose 230 H Calcium 10.0 Total Bilirubin 0.50 AST 20 ALT 22 Alkaline Phosphatase 78 Total Protein 7.2 Albumin 3.7 Globulin 3.5 Albumin/Globulin Ratio 1.1 Urine Color Yellow Urine Clarity Clear Urine pH 7.0 Ur Specific [place] 1.010 Urine Protein Negative Urine Glucose (UA) 100 H Urine Ketones Negative Urine Occult Blood Negative Urine Nitrite Negative Urine Bilirubin Negative Urine Urobilinogen Normal Ur Leukocyte Esterase Negative Urine RBC 0 SEEN Urine WBC 0 SEEN Ur Squamous Epith Cells 0 SEEN Urine Bacteria 0 SEEN Urine Mucus 0 SEEN Radiography Diagnostic Testing: Clinical Impression(s) from Imaging Studies Brain CT 05/03/21 12:32 IMPRESSION: No acute intracranial process. Electronically Signed: Sharath Thomas MD at 13:48 EDT , Cervical Spine CT 05/03/21 12:32 IMPRESSION: 1. Multilevel degenerative changes, as described above. 2. Straightening of the cervical spine which could be due to muscle spasm. 3. No evidence for acute fracture or subluxation. Electronically Signed: Sharath Thomas MD at 13:51 EDT , Discharge Plan Triage Chief Complaint: Nausea/Vomiting ED Provider: Tay Hussein Dx/Rx/DC Orders Primary Care Provider: Sugey Simpson Disposition Disposition: Home, Self Care
[2021-05-03] MEDS: Meclizine HCl 25 MG Tablet PO (12:41)
[2021-05-03] MEDS: proMETHazine 25 MG/ML Syringe 12.5 MG IM (12:42)
[2021-05-03 12:47] LABS: Absolute Lymphocyte Count 2.24 X10^3/uL (0.83-4.51); Absolute Neutrophil Count 8.2 X10^3/uL (2.0-7.7); Basophil# 0.03 X10^3/uL; Basophil% 0.3 % (0-1); Eosinophil# 0.09 X10^3/uL; Eosinophils% 0.8 % (0-5); Hematocrit 38.1 % (37-47); Hemoglobin 13.9 g/dL (12.0-15.0); Lymphocyte # 2.24 X10^3/ul (0.83-4.51); Lymphocyte % 20.3 % (19-41); Mean Corp Hgb Conc 36.5 g/dL (32-36); Mean Corpuscular Hgb 30.8 pg (27.0-32.0); Mean Corpuscular Volume 84.3 fL (81-99); Mean Platelet Vol. 9.9 fl (6.2-12.0); Monocyte# 0.45 X10^3/uL; Monocyte% 4.1 % (0-10); NRBC Flagged by Analyzer 0 % (0-5); Neutrophil # 8.16 X10^3/uL (2.7-7.7); Neutrophil % 73.9 % (47-70); Platelet Count 238 K/mm3 (150-450); RBC Distribution Width CV 12.5 % (11.6-14.6); RBC Distribution Width SD 38.1 fl (35.1-43.9); Red Blood Count 4.52 M/mm3 (4.2-5.4)
[2021-05-03 13:02] LABS: Albumin, Serum 3.7 g/dL (3.2-5.0); BUN 20 mg/dL (7-18); BUN/Creat Ratio 17.5 RATIO (10-20); Creatinine, Serum 1.14 mg/dL (0.55-1.02); EST Glomerular Filtration Rate 49 mL/min (>60); Est Glom Filt Rate - Afr Amer 59 mL/min (>60); Estimated Creatinine Clearance 33.99 ml/min; Globulin 3.5 g/dL (2.2-4.2); Glucose 230 mg/dL (74-106); Protein, Total 7.2 g/dL (6.4-8.2)
[2021-05-03 13:03] LABS: ALB/GLOB Ratio 1.1 RATIO (0.9-2.4); AST(SGOT) 20 U/L (15-37); Alanine Aminotransfer ALT/SGPT 22 U/L (13-56); Alkaline Phosphatase 78 U/L (45-117); Anion Gap 7 (5-15); Chloride 109 mmol/L (98-107); Potassium 4.8 mmol/L (3.5-5.1); Sodium Level 139 mmol/L (136-145)
[2021-05-03 15:07] LABS: Bacteria 0 SEEN /hpf (None Seen); Mucous, Urine 0 SEEN /hpf (<or=2+); Red Blood Cells-Urine 0 SEEN /hpf (0-5); Squamous Epithelial Cells - UA 0 SEEN /hpf (5-10); White Blood Cells 0 SEEN /hpf (0-5)
[2021-05-03 15:16] LABS: Color, Urine Yellow (Yellow); Glucose, Dipstick 100 mg/dl (Normal); Ketone-Dipstick Negative (Negative); Leukocyte Esterase-Dipstick Negative /ul (Negative); Nitrite-Dipstick Negative (Negative); Occult Blood-Urine Negative /ul (Negative); Protein-Dipstick Negative (Negative); Urine Bilirubin Dipstick Negative (Negative); Urine Clarity Clear (Clear); Urine Urobilinogen Normal (Normal)
[2021-05-03] MEDS: Aspirin 81 MG TAB.CHEW 324 MG PO (16:40)
--- NOTE | 2021-05-03 17:01 | HP.PCM.HOS_ITS ---
Documented by User: Wallace PERSAUD 05/03/21 17:19 HPI - General General Date of Admission: 05/03/21 Date of Service: 05/03/21 Chief Complaint: Vertigo HPI Narrative GIANCARLO ANGULO is an 81-year-old female who presents to the ED at [facility] with a chief complaint of vertigo and dizziness. Patient reports that today when she awoke she has a feeling of the room spinning and unsteadiness on her feet. Patient reports that she has seen her primary care in regards to her dizziness and was prescribed a medication for 10 days that initially helped with spinning, but that she no longer has access to that prescription. Patient also has a chronic history of left-sided neck pain and back pain, for which patient believes that left-sided neck pain is contributing to her dizziness. Patient denies any numbness/tingling or weakness in her upper and/or lower extremities. Patient denies any significant headache or vision changes. Vital signs in the ED are stable, although patient has an elevated blood pressure, currently 180/83. CBC and BMP are unremarkable. UA is unremarkable. Brain CT does not show any acute intracranial process. Cervical spine CT does not show any acute fracture or subluxation, but does show multilevel degenerative change. FORMERLY [facility], [facility] Medical History COPD (chronic obstructive pulmonary disease) Hyperlipidemia Hypertension Thyroid disorder Home Medications levothyroxine 88 mcg tablet 88 mcg PO QDAY 06/30/17 [History Last Taken Unknown] lisinopril 10 mg tablet 10 mg PO QDAY 06/30/17 [History Last Taken Unknown] metformin 500 mg tablet 500 mg PO BID 06/30/17 [History Last Taken Unknown] pravastatin 20 mg tablet 20 mg PO QDAY 06/30/17 [History Last Taken Unknown] Allergy/AdvReac Type Severity Reaction Status Date / Time codeine AdvReac Nausea Verified 05/03/21 12:17 Family History (Updated 05/03/21 @ 17:08 by Wallace PERSAUD) Mother Colon cancer Father CVA (cerebral vascular accident) Heart disease Surgical History H/O abdominal hysterectomy H/O bladder repair surgery Hx of appendectomy Hx of right knee surgery Social History Smoking Status: Never smoker alcohol intake: never substance use type: does not use caffeine: Yes what type of physical activity do you participate in: walking seatbelt use: always do you feel safe at home: Yes additional social history: - Retired ROS Constitutional Constitutional: Reports fatigue and weakness; Denies anorexia, change in weight, chills, fever(s), malaise, night sweats or other Eyes Eyes: Denies blurry vision, change in eye color, change in vision, discharge f rom eye(s), double vision, erythema, eye pain, loss of vision or other ENT HEENT: Reports abnormal hearing and headache(s); Denies dysphagia, ear pain, epistaxis, hearing loss, nasal congestion, nasal discharge, post nasal drip, sinus pressure, sore throat or other Cardiovascular Cardiovascular: Reports lightheadedness; Denies chest pain, claudication, dyspnea on exertion, edema, orthopnea, palpitations, paroxysmal nocturnal dyspnea, rapid heart rate, syncope or other Respiratory/Chest Respiratory/Chest: Denies cough, dyspnea, excessive phlegm production, hemoptysis, productive cough, shortness of breath at rest, shortness of breath with exertion, wheezing or other Gastrointestinal Gastrointestinal: Denies abdominal pain, coffee ground emesis, constipation, diarrhea, dyspepsia, hematemesis, hematochezia, loose stools, melena, nausea, vomiting or other Genitourinary Genitourinary: Denies burning urination, difficulty urinating, dysuria, hematuria, nocturia, urinary frequency, urinary hesitancy, urinary incontinence, urinary urgency or other Musculoskeletal Musculoskeletal: Denies arthralgias, back pain, joint pain, joint stiffness, joint swelling, myalgias, neck pain or other Neurologic Neurologic: Reports disequilibrium, dizziness and headache(s); Denies abnormal gait, abnormal speech, confusion, focal weakness, numbness, paresthesias, seizure-like activity, seizures, syncope, tingling, tremor(s) or other Psychiatric Psychiatric: Denies anxiety, depression, homicidal ideation, suicidal ideation or other Endocrine Endocrinology: Denies change in body appearance, cold intolerance, excessive sweating, heat intolerance, polydipsia, polyuria or other Hematologic/Lymphatic Hematologic/Lymphatic: Denies anemia, easy bleeding, easy bruising, lymphadenopathy or other Allergic/Immunologic Allergic/Immunologic: Denies rhinitis, hives, eczemia, asthma or other Vital Signs Vital Signs Vital Signs: 05/03/21 12:17 05/03/21 15:05 05/03/21 16:55 Temperature 96.2 F L 98.3 F Temperature Source Temporal Oral Pulse Rate 72 69 76 Respiratory Rate 20 H 17 18 Blood Pressure 174/93 H 109/94 H 180/83 H Blood Pressure Mean 120 99 115 Pulse Ox 97 99 Oxygen Delivery Method Room Air Room Air Room Air Weight Weight: 192 lb 7.417 oz Body Mass Index (BMI) 33.0 Physical Exam Const alert and oriented x3 General Appearance: cooperative HEENT normocephalic, head/scalp atraumatic and hearing grossly normal bilaterally Eyes PERRL and conjunctivae normal Neck no lymphadenopathy, supple and no JVD Resp normal respiratory effort, no retractions and no use of accessory muscles Cardio regular rate, regular rhythm and no JVD GI normal to inspection, nondistended, normoactive bowel sounds Extremity normal to inspection Skin no rashes or lesions noted Neuro CN's II-XII intact bilaterally Psych affect normal Results Lab / Micro Data Result Diagrams: 05/03/21 12:25 05/03/21 12:25 Labs: Laboratory Results - last 24 hr 05/03/21 12:25: WBC 11.0, RBC 4.52, Hgb 13.9, Hct 38.1, MCV 84.3, MCH 30.8, MCHC 36.5 H, RDW Std Deviation 38.1, RDW Coeff of Jayla 12.5, Plt Count 238, MPV 9.9, Immature Gran % (Auto) 0.600, Neut % (Auto) 73.9 H, Lymph % (Auto) 20.3, [place] % (Auto) 4.1, Eos % (Auto) 0.8, Baso % (Auto) 0.3, Absolute Neuts (auto) 8.2 H, Absolute Lymphs (auto) 2.24, Nucleated RBC % 0 05/03/21 12:25: Sodium 139, Potassium 4.8, Chloride 109 H, Carbon Dioxide 23.0, Anion Gap 7, BUN 20 H, Creatinine 1.14 H, Estim Creat Clear Calc 33.99, Est GFR (MDRD) Af Amer 59 L, Est GFR (MDRD) Non-Af 49 L, BUN/Creatinine Ratio 17.5, Glucose 230 H, Calcium 10.0, Total Bilirubin 0.50, AST 20, ALT 22, Alkaline Phosphatase 78, Total Protein 7.2, Albumin 3.7, Globulin 3.5, Albumin/Globulin Ratio 1.1 05/03/21 15:00: Urine Color Yellow, Urine Clarity Clear, Urine pH 7.0, Ur Specific [place] 1.010, Urine Protein Negative, Urine Glucose (UA) 100 H, Urine Ketones Negative, Urine Occult Blood Negative, Urine Nitrite Negative, Urine Bilirubin Negative, Urine Urobilinogen Normal, Ur Leukocyte Esterase Negative, Urine RBC 0 SEEN, Urine WBC 0 SEEN, Ur Squamous Epith Cells 0 SEEN, Urine Bacteria 0 SEEN, Urine Mucus 0 SEEN Radiology Impression Brain CT 05/03/21 12:32 IMPRESSION: No acute intracranial process. Electronically Signed: Sharath Thomas MD at 13:48 EDT , Cervical Spine CT 05/03/21 12:32 IMPRESSION: 1. Multilevel degenerative changes, as described above. 2. Straightening of the cervical spine which could be due to muscle spasm. 3. No evidence for acute fracture or subluxation. Electronically Signed: Sharath Thomas MD at 13:51 EDT , Assessment & Plan Assessment/Plan (1) Vertigo: PLAN: Patient is an 81-year-old female who presents to the ED at [facility] on 05/03/2021 with a chief complaint of dizziness and vertigo. Patient will be admitted for evaluation management of vertigo as well as stroke rule out. 1) vertigo/stroke rule out Patient with 1 day history of dizziness and vertigo. Patient does not complain of nor did she demonstrate any focal neurological deficits. Will admit to obtain imaging to rule out posterior circulation stroke. Plan; admit to PCU, obtain brain MRI and head/neck MRA to rule out stroke, echocardiogram in a.m., serial NIHSS every 4 hours, CBC and CMP in a.m., PT/OT/ST eval ordered, hemoglobin A1c and fasting lipid panel ordered. 2) history of DM2 Unreliable historian in regards to diabetes. Patient reports that she no longer takes medication although Metformin is on her home medication list. Sugar elevated on admission to 230. We will hold patient's home Metformin, and initiate sliding-scale insulin with Accu-Cheks and we will check patient's hemoglobin A1c. 3) hypothyroidism Continue levothyroxine. 4) hyperlipidemia Continue statin. 5) HTN Continue home lisinopril. CODE STATUS: DNRCC-A, no intubation. DVT prophylaxis - low risk, not indicated. Patient seen by Wallace Mosqueda PA-C, under the supervision of Dr. Jacob. Time spent on patient care: 25 minutes. Documented by User: Dr. Maura Jacob MD 05/03/21 17:33 HPI - General General Date of Admission: 05/03/21 FORMERLY [facility], [facility] Medical History COPD (chronic obstructive pulmonary disease) Hyperlipidemia Hypertension Thyroid disorder Home Medications levothyroxine 88 mcg tablet 88 mcg PO QDAY 06/30/17 [History Last Taken Unknown] lisinopril 10 mg tablet 10 mg PO QDAY 06/30/17 [History Last Taken Unknown] metformin 500 mg tablet 500 mg PO BID 06/30/17 [History Last Taken Unknown] pravastatin 20 mg tablet 20 mg PO QDAY 06/30/17 [History Last Taken Unknown] Allergy/AdvReac Type Severity Reaction Status Date / Time codeine AdvReac Nausea Verified 05/03/21 12:17 Family History (Updated 05/03/21 @ 17:08 by Wallace PERSAUD) Mother Colon cancer Father CVA (cerebral vascular accident) Heart disease Surgical History H/O abdominal hysterectomy H/O bladder repair surgery Hx of appendectomy Hx of right knee surgery Social History Smoking Status: Never smoker alcohol intake: never substance use type: does not use caffeine: Yes what type of physical activity do you participate in: walking seatbelt use: always do you feel safe at home: Yes additional social history: - Retired Results Lab / Micro Data Result Diagrams: 05/03/21 12:25 05/03/21 12:25 Charges/Coding Addendum Addendum: This patient was seen in conjunction with CORI Rocha. I have independently interviewed and examined the patient and reviewed pertinent historical, laboratory, and other data. Please refer to CORI Rocha's note for his patient's presentation, findings, and recommendations. I have reviewed and his note and concur with his documentation 81-year-old female with past medical history of hypertension, hypothyroidism, type II DM who comes in with dizziness, unsteadiness of the gait ongoing for couple of days. Patient recently was prescribed a medication for dizziness. She was prescribed 10 days worth of it. She did not complete it. She describes heavy feeling unsteady, may be the room spinning. She stated that recently she had a shoulder injection for chronic neck and back pain and since then has been very dizzy. She denied any change in her hearing. She has chronic hearing loss for which she wears hearing aids. She denies any worsening tingling or numbness of extremities. She denies any diarrhea or vomiting. In the ED ED, her blood pressure was 180/83, heart rate 76, SPO2 is 99% on room air, temperature 98.3 F. Physical Exam: Gen: Looks in some discomfort, obese, not pale, not jaundiced CVS:HS I +II, regular, no murmurs RESP: Diminished at lung bases GI: BS present and normal, soft, nontender, no palpable organs EXT:No edema [employer]: Cranial nerves II through XII intact, no obvious nystagmus, power in extremities 5/5, normal tone, no cerebellar signs Labs: WBC count 11.0, hemoglobin 13.9, platelet 238, sodium is 139, potassium 4.8, chloride 109, carbonate 23, BUN 20, creatinine 1.14, previous creatinine was 1.35, glucose is 230. UA is unremarkable CT of the brain is unremarkable. CT of the spine showed multilevel degenerative changes, straightening of the cer vical spine due to muscle spasm ASSESSMENT: 1. Acute vertigo, r/o posterior circulation stroke 2. Hypertension 3. Hypothyroidism 4. Hyperlipidemia 5. Type 2 DM Plan: Admit to PCU for acute stroke work-up MRI brain, MRA of head and neck 2D-ECHO, Lipid profile, HgbA1c PT/OT/ST Hold metformin ISS with blood glucose checks I discussed and explained in details the various types of CODE STATUS-full code, DNR CCA, DNR CC. Patient does not want aggressive care. Time spent discussing CODE STATUS 16 minutes Time spent taking history, physical exam, discussing with patient and her daughter: 45 minutes Visit Charges OBSV E&M: 88050 Initial observation care L3 Procedures Hospitalists Procedures: 28754 Advncd Care Plan 30 Min
--- NOTE | 2021-05-03 17:20 | EKG12_ITS ---
Test Reason : Blood Pressure : / mmHG Vent. Rate : 064 BPM Atrial Rate : 064 BPM P-R Int : 238 ms QRS Dur : 080 ms QT Int : 414 ms P-R-T Axes : 051 -46 030 degrees QTc Int : 427 ms Sinus rhythm with 1st degree A-V block Left axis deviation Abnormal ECG Confirmed by FLOR NEVAREZ, WIL ([id number]), technical writer and editor WAYNE BARBER ([id number]) on 05/05/2021 11:37:15 A M Referred By: ALESSANDRA Confirmed By:ONELIA RAY MD
[2021-05-03 17:33] LABS: Troponin-I HS 6 pg/mL (3.0-54.0)
[2021-05-03 17:39] LABS: Hemoglobin A1c 7.8 % (3.8-5.6)
--- NOTE | 2021-05-03 17:41 | ECHOD_ITS ---
Reason For Study: TIA/CVA Procedure This was a 2D Doppler, Color Flow transthoracic echocardiogram. Exam performed portable in patient room. Left Ventricle Normal LV size. Left ventricular systolic function is normal. Stage 1 diastolic dysfunction. No regional wall motion abnormalities noted. Right Ventricle Normal RV size. Normal systolic function. Atria Normal left atrium. Normal right atrium. Mitral Valve Normal mitral valve. Tricuspid Valve Normal tricuspid valve. Aortic Valve Trisinus/trileaflet aortic valve. Pulmonic Valve Normal pulmonic valve. Great Vessels Normal aortic root. The pulmonary artery is normal size. Normal inferior vena cava. Pericardium/Pleural No pericardial effusion. MMode/2D Measurements & Calculations LVIDd: 4.7 cm IVSd: 0.96 cm Ao root diam: 3.0 cm LVIDs: 2.9 cm LVPWd: 0.95 cm FS: 38.5 % LAV(MOD-bp): 43.2 ml LA A4 area: 16.9 cm2 LA dimension(2D): 3.6 cm LAV(MOD-bp) Indexed: 22.4 ml/m2 LAV(MOD-sp2): 40.4 ml LAV(MOD-sp4): 45.1 ml RA A4 area: 10.3 cm2 Time Measurements MV dec time: 0.18 sec Doppler Measurements & Calculations MV E max xavier: 87.8 cm/sec Lat Peak E' Xavier: 7.6 cm/sec Med Peak E' Xavier: 6.5 cm/sec MV A max xavier: 115.3 cm/sec E/E' lat: 11.6 E/E' med: 13.4 MV E/A: 0.76 Ao V2 max: 169.1 cm/sec LV V1 max: 127.0 cm/sec PA V2 max: 75.8 cm/sec Ao max P.4 mmHg LV V1 max P.5 mmHg ECHO/Echo Complete Interpretation Summary Normal LV size. Left ventricular systolic function is normal. No regional wall motion abnormalities noted. Stage 1 diastolic dysfunction. Ordering Physician: Maura Jacob Referring Physician: Sugey Simpson Performed By: Ariana Porter RDCS, RVT
[2021-05-03] MEDS: 0.9% Saline Lock 10 ML Syringe IV (20:42)
[2021-05-03 22:41] LABS: Bedside Glucose 211 mg/dL (74-106)
[2021-05-03] MEDS: Insulin Lispro 100 UNIT/ML INSULN.PEN SC (22:47)
[2021-05-04] VITALS (11 sets, daily range): BP systolic 116–147; BP diastolic 63–74; PULSE 67–82; RESP 16–18; TEMP 36.4–36.8; O2SAT 93–98; BMI 33.3
[2021-05-04] MEDS: Atorvastatin Calcium 40 MG Tablet PO ×2 (00:02→21:33)
[2021-05-04 06:16] LABS: Cholesterol 156 mg/dL (200); High Density Lipoprotein 65 mg/dL; Triglycerides 169 mg/dL; Very Low Density Lipoprotein 34 mg/dL (5-40)
[2021-05-04] MEDS: Acetaminophen 500 MG Tablet 1000 MG PO ×3 (06:32→21:33)
[2021-05-04] MEDS: Levothyroxine 88 MCG Tablet PO (06:32)
[2021-05-04] MEDS: Insulin Lispro 100 UNIT/ML INSULN.PEN SC ×4 (06:32→21:34)
[2021-05-04 06:55] LABS: Bedside Glucose 182 mg/dL (74-106)
--- NOTE | 2021-05-04 08:00 | MRI_ITS ---
STUDY: MRA OF THE HEAD WITHOUT CONTRAST REASON FOR EXAM: Female, 81 years old. neuro deficit,acute TECHNIQUE: 3-D [id number]-[id number] (TOF) imaging was performed with MIPs. The study was performed unenhanced. COMPARISON: MRI of the brain dated May 04, 2021 FINDINGS: Normal bilateral petrous carotid arteries. Normal right cavernous carotid artery with a normal supraclinoid bifurcation. Normal left cavernous carotid artery with a normal supraclinoid bifurcation. Normal right A1 segments of the anterior cerebral artery. There is hypoplastic development of the left A1 segment of the anterior cerebral arteries with an atretic but intact artery. Normal intact anterior communicating artery (ACOM). Normal bilateral A2 segments of the anterior cerebral arteries. Normal right M1 and M2 segments of the middle cerebral arteries, with a normal M1 bifurcation. Normal left M1 and M2 segments of the middle cerebral arteries, with a normal M1 bifurcation. There is non-visualization of the right posterior communicating artery (PCOM). There is non-visualization of the left posterior communicating artery (PCOM). Normal bilateral vertebral arteries. Normal basilar artery with a normal basilar bifurcation. The visualized bilateral superior cerebellar (SCA) arteries are normal. Normal bilateral P1, P2 and visualized P3 segments of the posterior cerebral arteries. There is no demonstrated aneurysm of the moapa of Rasheed. There is no major vessel occlusion or hemodynamically significant stenosis. There is no demonstrated abnormality of the visualized brain. MRI/MRA Head ONLY without Contrast IMPRESSION: Normal MRA of the head Electronically Signed: Joseph Jaqruin MD at 13:21 EDT ,
--- NOTE | 2021-05-04 08:00 | MRI_ITS ---
STUDY: MRI BRAIN WITHOUT CONTRAST REASON FOR EXAM: Female, 81 years old. neuro deficit, acute TECHNIQUE: Standardized multiplanar fat and water weighted pulse sequences were obtained. COMPARISON: Head CT dated May 03, 2021. FINDINGS: There is mild cerebral atrophy with widening of the extra-axial spaces and ventricular dilatation. Normal white matter tracts of the supratentorial brain. There is no evidence for recent intracranial ischemia or other cause of cytotoxic edema on diffusion weighted imaging (DWI). Normal T2* images of the brain without demonstrated susceptibility artifact. There is no demonstrated hemosiderin stain. Normal bilateral frontal poles, and orbital frontal and gyrus recti of the frontal lobes. Normal bilateral temporal tips of the temporal lobes. There are no white matter shear injuries (diffuse axonal injuries). There are no parenchymal hemorrhages or hematomas. There are no findings to suggest prior closed head parenchymal injury of the brain. Tiny extra-axial calcified meningioma of the anterior medial right temporal fossa measuring 1 cm in diameter. Normal bilateral basal ganglia. Normal thalami. There is no extra-axial fluid accumulation. Normal flow voids within the major intracranial circulation suggesting patency by spin echo criteria. There is enlargement of the sella turcica with increased CSF within the sella and flattening of the pituitary gland consistent with an empty sellar syndrome. Normal infundibular stalk, hypothalamus, and optic chiasm. Normal tectal plate and pineal gland. Normal midbrain, prieto and medulla. Normal cerebellum. Normal basal cisterns. Normal bilateral temporal bones. Normal bilateral internal auditory canals. No demonstrated orbital abnormality, within the constraints of a routine brain study. There is mucoperiosteal inflammatory disease of the paranasal sinuses consistent with mild chronic sinusitis. Normal calvarium and skull base. Normal visualized soft tissue structures. Normal visualized upper cervical spine. MRI/Brain without Contrast IMPRESSION: 1. Involutional changes of the brain, as described above. 2. No acute infarct. 3. Tiny extra-axial calcified meningioma of the anterior medial right temporal fossa measuring 1 cm in diameter. Electronically Signed: Joseph Jarquin MD at 11:39 EDT ,
--- NOTE | 2021-05-04 08:00 | MRI_ITS ---
STUDY: MRA NECK WITH AND WITHOUT CONTRAST REASON FOR EXAM: Female, 81 years old. Neuro deficit, acute TECHNIQUE: 3-D [id number] (TOF) imaging was performed in an 1.5 T MRI scanner. dotarem 15ml,, iv was administered for the contrast enhanced images. COMPARISON: MRI and MRA of the brain dated May 04, 2021 FINDINGS: RIGHT CAROTID ARTERIES: Normal right common carotid artery (CCA). There is mild atherosclerotic plaque formation with minimal narrowing of the right carotid bulb. There is mild atherosclerotic plaque formation of the origin of the right internal carotid artery with less than 50% cross sectional diameter stenosis. Normal visualized cervical portion of the right internal carotid artery. Normal origin of the right external carotid artery (ECA). LEFT CAROTID ARTERIES: Normal left common carotid artery (CCA). Normal left common carotid bulb. Normal origin of the left internal carotid (ICA) artery without a hemodynamically significant stenosis. Normal visualized cervical portion of the left internal carotid artery. Normal origin of the left external carotid artery (ECA). VERTEBRAL ARTERIES: There is antegrade flow within the bilateral vertebral arteries with a small left vertebral artery, and a dominant right vertebral artery. MRI/MRA Neck WITH and W/O Contrast IMPRESSION: 1. Mild atherosclerotic plaque and less than 50% stenosis of the right carotid bulb and origin of the ICA Electronically Signed: Joseph Jarquin MD at 13:30 EDT ,
[2021-05-04] MEDS: Aspirin 81 MG TAB.CHEW PO (08:17)
[2021-05-04] MEDS: Lisinopril 10 MG Tablet PO (08:18)
[2021-05-04 11:50] LABS: Bedside Glucose 223 mg/dL (74-106)
--- NOTE | 2021-05-04 12:37 | PN.HOSP_ITS ---
Documented by User: Wallace PERSAUD 05/04/21 12:45 Subjective Subjective Patient is an 81-year-old female comfortably resting in bed, alert and orient x3. Patient reports that her dizziness/vertigo have much improved from admission and are currently controlled with as needed medications. Patient appears more participative as well. Denies development of any new symptoms overnight. Does not appear in acute distress. Objective Data Objective Data Vital Signs: Vital Signs Temp Pulse Resp BP Pulse Ox 98.2 F 80 16 143/71 H 98 05/04/21 08:00 05/04/21 08:00 05/04/21 08:00 05/04/21 08:00 05/04/21 08:00 Oxygen Delivery Method Room Air Weight: 194 lb 7.163 oz Body Mass Index (BMI) 33.3 Intake & Output: Intake and Output for Last 24 Hours 05/02/21 05/03/21 05/04/21 23:59 23:59 23:59 Intake Total 740 / 740 Output Total 300 / 300 700 / 700 Balance 440 / 440 -700 / -700 Lab / Micro Data Result Diagrams: 05/03/21 12:25 05/03/21 12:25 Labs: Laboratory Results - last 24 hr 05/03/21 12:25: WBC 11.0, RBC 4.52, Hgb 13.9, Hct 38.1, MCV 84.3, MCH 30.8, MCHC 36.5 H, RDW Std Deviation 38.1, RDW Coeff of Jayla 12.5, Plt Count 238, MPV 9.9, Immature Gran % (Auto) 0.600, Neut % (Auto) 73.9 H, Lymph % (Auto) 20.3, [place] % (Auto) 4.1, Eos % (Auto) 0.8, Baso % (Auto) 0.3, Absolute Neuts (auto) 8.2 H, Absolute Lymphs (auto) 2.24, Nucleated RBC % 0 05/03/21 12:25: Sodium 139, Potassium 4.8, Chloride 109 H, Carbon Dioxide 23.0, Anion Gap 7, BUN 20 H, Creatinine 1.14 H, Estim Creat Clear Calc 33.99, Est GFR (MDRD) Af Amer 59 L, Est GFR (MDRD) Non-Af 49 L, BUN/Creatinine Ratio 17.5, Glucose 230 H, Calcium 10.0, Total Bilirubin 0.50, AST 20, ALT 22, Alkaline Phosphatase 78, Total Protein 7.2, Albumin 3.7, Globulin 3.5, Albumin/Globulin Ratio 1.1 05/03/21 15:00: Urine Color Yellow, Urine Clarity Clear, Urine pH 7.0, Ur Specific [place] 1.010, Urine Protein Negative, Urine Glucose (UA) 100 H, Urine Ketones Negative, Urine Occult Blood Negative, Urine Nitrite Negative, Urine Bilirubin Negative, Urine Urobilinogen Normal, Ur Leukocyte Esterase Negative, Urine RBC 0 SEEN, Urine WBC 0 SEEN, Ur Squamous Epith Cells 0 SEEN, Urine Bacteria 0 SEEN, Urine Mucus 0 SEEN 05/03/21 16:55: Troponin I High Sens Cancelled 05/03/21 16:55: Troponin I High Sens 6 05/03/21 16:55: Hemoglobin A1c 7.8 H 05/03/21 22:35: POC Glucose 211 H 05/04/21 05:19: Triglycerides 169, Cholesterol 156, LDL Cholesterol 57, VLDL Cholesterol 34, HDL Cholesterol 65 05/04/21 06:27: POC Glucose 182 H 05/04/21 11:37: POC Glucose 223 H Radiography Diagnostic Testing: Radiology Impression Brain CT 05/03/21 12:32 IMPRESSION: No acute intracranial process. Electronically Signed: Sharath Thomas MD at 13:48 EDT , Cervical Spine CT 05/03/21 12:32 IMPRESSION: 1. Multilevel degenerative changes, as described above. 2. Straightening of the cervical spine which could be due to muscle spasm. 3. No evidence for acute fracture or subluxation. Electronically Signed: Sharath Thomas MD at 13:51 EDT , Brain MRI 05/04/21 08:00 IMPRESSION: 1. Involutional changes of the brain, as described above. 2. No acute infarct. 3. Tiny extra-axial calcified meningioma of the anterior medial right temporal fossa measuring 1 cm in diameter. Electronically Signed: Joseph Jarquin MD at 11:39 EDT , Physical Exam Const alert, oriented x3 and no apparent distress HEENT head/scalp atraumatic and moist oral mucous membranes Head and Scalp: normocephalic Eyes PERRL, EOMs intact bilaterally and conjunctivae normal Neck no lymphadenopathy, supple and no JVD Resp normal respiratory effort, no retractions and no use of accessory muscles Cardio regular rate, regular rhythm and no JVD GI normal to inspection, nondistended, normoactive bowel sounds Extremity normal to inspection Skin no rashes or lesions noted Neuro CN's II-XII intact bilaterally Psych affect normal Assessment & Plan Assessment/Plan (1) Vertigo: PLAN: Day 1 Discharge planning: Current plan is for patient to discharge home ending PT/OT eval. 1) vertigo/stroke rule out Brain MRI obtained, did not demonstrate any acute ischemia or infarct. Of note, there is an extra-axial calcified meningioma of the anterior medial right tempor al fossa approximately 1 cm in diameter. Head/neck MRA pending at time of this dictation. NIHSS have remained 0 throughout admission. Will continue Meclizine as needed, discontinue serial NIHSS, awaiting PT/OT eval for disposition. 2) history of DM2 Hemoglobin A1c is 7.8, we will advise patient on discharge to work with primary care provider in regards to titration of home diabetic regimen. We will continue to hold home Metformin and continue Accu-Cheks with sliding scale insulin. 3) hypothyroidism Continue levothyroxine. 4) hyperlipidemia Continue statin. 5) HTN Continue home lisinopril. DVT prophylaxis - low risk, not indicated. Patient seen by Wallace Mosqueda PA-C, under the supervision of Dr. Jacob. Time spent on patient care: 10 minutes. Documented by User: Dr. Maura Jacob MD 05/04/21 13:44 Objective Data Lab / Micro Data Result Diagrams: 05/03/21 12:25 05/03/21 12:25 Charges/Coding Addendum Addendum: This patient was seen in conjunction with CORI Rocha. I have independently interviewed and examined the patient and reviewed pertinent hist orical, laboratory, and other data. Please refer to CORI Rocha's note for his patient's presentation, findings, and recommendations. I have reviewed and his note and concur with his documentation Patient was seen and examined. She stated her dizziness was a little better. Blood pressures are improved. Denied any nausea or vomiting. MRI of the brain showed no acute infarct. Showed a tiny meningioma. MRA of the head is unremarkable. MRA of the neck shows less than 50% stenosis of the right carotid bulb and origin of the ICA. Physical Exam: Gen: Looks in some discomfort, obese, not pale, not jaundiced CVS:HS I +II, regular, no murmurs RESP: Diminished at lung bases GI: BS present and normal, soft, nontender, no palpable organs EXT:No edema CHIEF TECHNICIAN X RAY: Cranial nerves II through XII intact, no obvious nystagmus, power in extremities 5/5, normal tone, no cerebellar signs ASSESSMENT: 1. Acute vertigo, r/o posterior circulation stroke 2. Hypertension 3. Hypothyroidism 4. Hyperlipidemia 5. Type 2 DM Plan: DC aspirin Lidoderm patches to the posterior neck Continue meclizine prn PT/OT to evaluate to treat Continue with ISS with blood glucose checks Time spent coordinating patient's care, physical exam, discussing with patient and her daughter: 25 minutes Visit Charges OBSV E&M: 48817 Subsequent observation care L2
[2021-05-04] MEDS: Lidocaine 5% Patch 1 PATCH TOPICAL (14:50)
[2021-05-04 17:06] LABS: Bedside Glucose 228 mg/dL (74-106)
[2021-05-04 22:06] LABS: Bedside Glucose 167 mg/dL (74-106)
[2021-05-05] VITALS (8 sets, daily range): BP systolic 139–175; BP diastolic 66–90; PULSE 71–107; RESP 18–20; TEMP 36.3–36.9; O2SAT 96–99
[2021-05-05 05:58] LABS: AST(SGOT) 18 U/L (15-37); Alanine Aminotransfer ALT/SGPT 20 U/L (13-56); Albumin, Serum 3.2 g/dL (3.2-5.0); Alkaline Phosphatase 69 U/L (45-117); Anion Gap 3 (5-15); BUN 21 mg/dL (7-18); BUN/Creat Ratio 19.8 RATIO (10-20); Calcium,Total 8.9 mg/dL (8.5-10.1); Chloride 111 mmol/L (98-107); Creatinine, Serum 1.06 mg/dL (0.55-1.02); EST Glomerular Filtration Rate 53 mL/min (>60); Est Glom Filt Rate - Afr Amer 64 mL/min (>60); Estimated Creatinine Clearance 36.55 ml/min; Globulin 3.2 g/dL (2.2-4.2); Glucose 194 mg/dL (74-106); Potassium 4.2 mmol/L (3.5-5.1); Protein, Total 6.4 g/dL (6.4-8.2); Sodium Level 139 mmol/L (136-145)
[2021-05-05] MEDS: Acetaminophen 500 MG Tablet 1000 MG PO (06:28)
[2021-05-05] MEDS: Levothyroxine 88 MCG Tablet PO (06:29)
[2021-05-05] MEDS: Insulin Lispro 100 UNIT/ML INSULN.PEN SC ×2 (06:29→11:24)
[2021-05-05] MEDS: Meclizine HCl 25 MG Tablet PO (06:51)
[2021-05-05 06:56] LABS: Bedside Glucose 195 mg/dL (74-106)
--- NOTE | 2021-05-05 08:30 | NURSING ---
Patient sitting upright in bed at this time with washcloth on forehead. Pt states that I don't really have pain, but just an aching in my neck. Pt denies nausea at this time. Given breakfast and positioned in seated sitting position in bed. Plan of care for day discussed with pt. No further needs at this time. Will continue to monitor.
--- NOTE | 2021-05-05 10:00 | CASEMGMT ---
RN CM Face to Face with patient for initial transition planning/care coordination assessment. RN CM introduced self and role at [facility]. Patient sitting in chair, alert and oriented, at bedside. Patient willing to participate in assessment and is able to answer all questions appropriately. Care providers, pharmacy, and demographics verified. Patient wishes to discharge home, will monitor for HHC. Patient states she has no further needs or concerns at this time. CM to follow for discharge planning needs that may arise. PCP: Tatiana Specialists: none [facility]erred [facility] Insurance: [email or web address] Prescription Benefit: yes Living Will/HPOA: yes, daughter Lana Alvarez LNOK: , daughter Living Arrangements: Patient lives with in a single story home with 1 step to enter. Patient is independent at home. Transportation: DME/HHC: Patient has shower chair, raised toilet, grab bars, walker, wheelchair, and nebulizer at home. Patient denies previous HHC or SNF. Disposition Plan: Patient to discharge home with family support and follow-up plans in place. Will monitor for HHC. Rhea CHILEL, RN, CM
[2021-05-05] MEDS: Lidocaine 5% Patch 1 PATCH TOPICAL (10:01)
[2021-05-05] MEDS: Lisinopril 10 MG Tablet PO (10:01)
[2021-05-05] MEDS: 0.9% Saline Lock 10 ML Syringe IV (10:03)
--- NOTE | 2021-05-05 10:47 | PCM.DC ---
Discharge Instructions Diet Discharge Diet: No restrictions Activity Discharge Activity: Return to Normal Activity Weight Bearing Status: Weight bearing as tolerated Dressing / Incision Call your doctor if you observe: Fever of 101 or Higher, Numbness or Tingling, Shortness of breath, Dizziness, Chest pain, Increased palpitations (irregular heartbeat) and Calf discomfort Follow Up Care Please Follow Up With: Primary care provider When: Within the next two weeks. Test Results: Test results from this visit will be discussed in further detail at your follow-up appointment, if applicable. Discharge Plan Admission Admit Date/Time: 05/03/21 16:29 Primary Reason for Your Visit: Vertigo Attending Provider: Maura Jacob Primary Care Provider: Sugey Simpson Instructions Patient Instructions: ED BPV Vertigo Discharge Orders/Prescriptions Prescriptions: New meclizine 12.5 mg tablet 25 mg PO TID PRN PRN (Reason: Dizzyness) Qty: 21 RF: 0 Continued metformin 500 mg tablet 500 mg PO BID RF: 0 levothyroxine 88 mcg tablet 88 mcg PO QDAY RF: 0 pravastatin 20 mg tablet 20 mg PO QDAY RF: 0 lisinopril 10 mg tablet 10 mg PO QDAY RF: 0 Referrals / Follow Up: Suman Joyce MD [STAFF PHYSICIAN] - As soon as possible Sugey Simpson DO [Primary Care Provider] - Within 2 Weeks Disposition Disposition (needs filled in before D/C Order can be placed): Home, Self Care
--- NOTE | 2021-05-05 11:02 | DS.PCM_ITS ---
Documented by User: Wallace PERSAUD 05/05/21 12:38 Providers Date of Admission: 05/03/21 Date of Discharge: 05/05/21 Primary Care Physician: Dr. Sugey Simpson DO Reason For Visit: DIZZINESS Diagnosis Discharge Diagnosis (1) Vertigo: Status: Acute Code(s): R42 - Dizziness and giddiness (2) Benign paroxysmal positional vertigo: Status: Acute Code(s): H81.10 - Benign paroxysmal vertigo, unspecified ear Medications at Discharge Home Medications levothyroxine 88 mcg tablet 88 mcg PO QDAY 06/30/17 lisinopril 10 mg tablet 10 mg PO QDAY 06/30/17 metformin 500 mg tablet 500 mg PO BID 06/30/17 pravastatin 20 mg tablet 20 mg PO QDAY 06/30/17 meclizine 25 mg PO TID PRN PRN #21 tab 05/05/21 Hospital Course Summary of Care Provided Minutes Spent on Discharge: 20 Hospital Course: Patient is an 81-year-old female who was admitted to [facility] on 05/03/2021 for evaluation and management of vertigo and dizziness. Patient underwent brain MRI as well as head/neck MRA to rule out stroke. Brain MRI did not demonstrate any acute stroke, however did show a 1 cm meningioma in the anterior medial right temporal fossa. I do not believe this is contributing to patient's vertigo. Head/neck MRI obtain and did not reveal any significant stenosis. Given unremarkable work-up, believe patient's vertigo is a result of benign paroxysmal positional vertigo. PT/OT eval obtained to evaluate patient ambulation as well as administer vestibular therapy. Patient provided with as needed meclizine prescription on discharge. Prescription provided for outpatient vestibular therapy. Patient was advised to follow-up with her primary care provider in regards to her vertigo as this appears to be a chronic issue for this patient. All other home medications were continued on discharge and patient should follow-up with her primary care provider in the next 2 weeks. Patient seen by Wallace Mosqueda PA-C, under the supervision of Dr. Jacob. Time spent on patient care: 20 minutes. Physical Exam Narrative Patient is an 81-year-old female comfortably resting in bed, alert and orient x3. Patient reports having a vertiginous episode this morning, which she reports improved with meclizine. Denies development of any new symptoms overnight. Does not appear in acute distress. Const alert, oriented x3 and no apparent distress HEENT normocephalic, head/scalp atraumatic and hearing grossly normal bilaterally Eyes PERRL and conjunctivae normal Neck no lymphadenopathy, supple and no JVD Resp normal respiratory effort, no retractions and no use of accessory muscles Cardio regular rate, regular rhythm and no JVD GI normal to inspection, nondistended, normoactive bowel sounds Extremity normal to inspection Skin no rashes or lesions noted Neuro CN's II-XII intact bilaterally Psych affect normal Weight / BMI Weight Weight: 194 lb 7.163 oz Body Mass Index (BMI) 33.3 ABG / Lab / Microbiology Data Result Diagrams: 05/03/21 12:25 05/05/21 05:14 Laboratory: Laboratory Results - last 24 hr 05/04/21 11:37: POC Glucose 223 H 05/04/21 16:46: POC Glucose 228 H 05/04/21 21:31: POC Glucose 167 H 05/05/21 05:14: Sodium 139, Potassium 4.2, Chloride 111 H, Carbon Dioxide 25.0, Anion Gap 3 L, BUN 21 H, Creatinine 1.06 H, Estim Creat Clear Calc 36.55, Est GFR (MDRD) Af Amer 64, Est GFR (MDRD) Non-Af 53 L, BUN/Creatinine Ratio 19.8, Glucose 194 H, Calcium 8.9, Total Bilirubin 0.40, AST 18, ALT 20, Alkaline Phosphatase 69, Total Protein 6.4, Albumin 3.2, Globulin 3.2, Albumin/Globulin Ratio 1.0 05/05/21 06:24: POC Glucose 195 H Radiography Diagnostic Testing: Radiology Impression Brain MRI 05/04/21 08:00 IMPRESSION: 1. Involutional changes of the brain, as described above. 2. No acute infarct. 3. Tiny extra-axial calcified meningioma of the anterior medial right temporal fossa measuring 1 cm in diameter. Electronically Signed: Joseph Jarquin MD at 11:39 EDT , Head MRA 05/04/21 08:00 IMPRESSION: Normal MRA of the head Electronically Signed: Joseph Jarquin MD at 13:21 EDT , Neck MRA 05/04/21 08:00 IMPRESSION: 1. Mild atherosclerotic plaque and less than 50% stenosis of the right carotid bulb and origin of the ICA Electronically Signed: Joseph Jarquin MD at 13:30 EDT Reading Location ID and State: [id number] / , Service support , D/C Instructions Discharge Diet: No restrictions Weight Bearing Status: Weight bearing as tolerated Call your doctor if you observe: Fever of 101 or Higher, Numbness or Tingling, Shortness of breath, Dizziness, Chest pain, Increased palpitations (irregular heartbeat) and Calf discomfort Please Follow Up With: Primary care provider When: Within the next two weeks. Meaningful Use Info Meaningful Use Diagnoses (Choose all that apply): None applicable Discharge Plan Admission Admit Date/Time: 05/03/21 16:29 Primary Reason for Your Visit: Vertigo Attending Provider: Maura Jacob Primary Care Provider: Sugey Simpson Instructions Patient Instructions: ED BPV Vertigo Discharge Orders/Prescriptions Prescriptions: New meclizine 12.5 mg tablet 25 mg PO TID PRN PRN (Reason: Dizzyness) Qty: 21 RF: 0 Continued metformin 500 mg tablet 500 mg PO BID RF: 0 levothyroxine 88 mcg tablet 88 mcg PO QDAY RF: 0 pravastatin 20 mg tablet 20 mg PO QDAY RF: 0 lisinopril 10 mg tablet 10 mg PO QDAY RF: 0 Referrals / Follow Up: Suman Joyce MD [STAFF PHYSICIAN] - As soon as possible Sugey Simpson DO [Primary Care Provider] - Within 2 Weeks Disposition Disposition (needs filled in before D/C Order can be placed): Home, Self Care Documented by User: Dr. Maura Jacob MD 05/05/21 14:23 Providers Date of Admission: 05/03/21 Reason For Visit: DIZZINESS Medications at Discharge Home Medications levothyroxine 88 mcg tablet 88 mcg PO QDAY 06/30/17 lisinopril 10 mg tablet 10 mg PO QDAY 06/30/17 metformin 500 mg tablet 500 mg PO BID 06/30/17 pravastatin 20 mg tablet 20 mg PO QDAY 06/30/17 meclizine 25 mg PO TID PRN PRN #21 tab 05/05/21 ABG / Lab / Microbiology Data Result Diagrams: 05/03/21 12:25 05/05/21 05:14 Discharge Plan Admission Admit Date/Time: 05/03/21 16:29 Primary Reason for Your Visit: Vertigo Attending Provider: Maura Jacob Primary Care Provider: Sugey Simpson Instructions Patient Instructions: ED BPV Vertigo Discharge Orders/Prescriptions Prescriptions: New meclizine 12.5 mg tablet 25 mg PO TID PRN PRN (Reason: Dizzyness) Qty: 21 RF: 0 Continued metformin 500 mg tablet 500 mg PO BID RF: 0 levothyroxine 88 mcg tablet 88 mcg PO QDAY RF: 0 pravastatin 20 mg tablet 20 mg PO QDAY RF: 0 lisinopril 10 mg tablet 10 mg PO QDAY RF: 0 Referrals / Follow Up: Suman Joyce MD [STAFF PHYSICIAN] - As soon as possible Sugey Simpson DO [Primary Care Provider] - Within 2 Weeks Disposition Disposition (needs filled in before D/C Order can be placed): Home, Self Care Charges/Coding Addendum Addendum: This patient was seen in conjunction with CORI Rocha. I have independently interviewed and examined the patient and reviewed pertinent historical, laboratory, and other data. Please refer to CORI Rocha's note for his patient's presentation, findings, and recommendations. I have reviewed and his note and concur with his documentation 81-year-old female with past medical history of 2 DM, hypertension, hyperlipidemia who comes in with complaints of dizziness that has been persistent as well as unsteady gait. Patient was seen in the outpatient a couple of days ago and prescribed medication for dizziness. She however took some and has not completed it. She also stated that recently she had shoulder injection for chronic neck and back pain and feels that her dizziness got worse after her injection. Patient's vitals in the ED were stable except for uncontrolled blood pressure which was likely related to pain. She was admitted to the PCU, monitored, work ed up for acute stroke. MRI of the brain as well as MRA of the head and neck was unremarkable for acute stroke. There were no acute events during this hospital stay. Patient was seen by PT and OT and recommended for outpatient vestibular therapy. On the day of discharge, patient was seen and examined. Denied any new complaints. Physical Exam: Gen: Comfortable, obese, not pale, not jaundiced CVS:HS I +II, regular, no murmurs RESP: Diminished at lung bases GI: BS present and normal, soft, nontender, no palpable organs EXT:No edema Time spent coordinating patient's care, physical exam, discussing with patient and her daughter: 25 minutes Visit Charges OBSV E&M: 35041 Observation care discharge
[2021-05-05 11:41] LABS: Bedside Glucose 317 mg/dL (74-106)
--- NOTE | 2021-05-05 12:00 | CASEMGMT ---
PARAM DICKINSON updated by therapy no C recommended at discharge. PARAM CM in to complete PACKER form with patient. RN TEENA explained PACKER form to patient, patient voiced understanding. Patient signed PACKER form and filed in chart. Patient provided with copy of signed PACKER form. Patient had no further questions or concerns at this time.
--- NOTE | 2021-05-05 13:42 | NURSING ---
Reviewed and agreed on all charting with Luz Rodrigues RN
== END 2021-05-05 10:49 | disposition home or self-care (01) ==
LOC: ED 16:34 → PCU 16:37
PROVIDERS: Admitting Provider Internal Medicine; Emergency Provider Student in an Organized Health Care Education/Training Program; PCP Family Medicine; Visit Provider Internal Medicine
DX: H81.10 Benign paroxysmal vertigo, unspecified ear (principal); J44.9 Chronic obstructive pulmonary disease, unspecified; D32.9 Benign neoplasm of meninges, unspecified; E11.9 Type 2 diabetes mellitus without complications; I65.21 Occlusion and stenosis of right carotid artery; R11.2 Nausea with vomiting, unspecified; I10 Essential (primary) hypertension; E03.9 Hypothyroidism, unspecified; I44.0 Atrioventricular block, first degree; H91.90 Unspecified hearing loss, unspecified ear; E78.5 Hyperlipidemia, unspecified; Z79.899 Other long term (current) drug therapy; Z79.890 Hormone replacement therapy; R29.700 NIHSS score 0
CPT/HCPCS: 96375 ×6; 96361 ×10; 96372 ×10; 96365 ×2; 96366 ×8; 96376 ×4; 36415; 70450; 70544; 70549; 70551; 72125; 80053; 80061; 81001; 82962; 83036; 84484; 85025; 92610; 93005; 93306; 96360; 97110; 97162; 97166; 97802; 99218; 99285; A9575; J7030; Q9957; A4216; G0378

== ENCOUNTER 2021-05-15 08:57 | Outpatient (CLI) | payer MEDICARE, SELFPAY ==
--- NOTE | 2021-05-15 09:00 | RAD_ITS ---
STUDY: X-RAY - RIGHT SHOULDER REASON FOR EXAM: Female, 81 years old. Post traumatic pain.. TECHNIQUE: 4 view(s) of the shoulder. COMPARISON: None. FINDINGS: Normal glenohumeral articulation. There is hypertrophic osteoarthrosis of the acromioclavicular joint with inferior osseous spur formation. Normal acromion. Normal humeral head and visualized proximal humerus. The soft tissue structures are unremarkable. Normal visualized pulmonary apex. 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 Electronically Signed: Blaine Velasquez MD at 12:38 EDT ,
== END 2021-05-15 23:59 | disposition home or self-care (01) ==
LOC: MTRAD 08:58
PROVIDERS: PCP Family Medicine; Referring Provider Family Medicine; Visit Provider Family Medicine
DX: M25.511 Pain in right shoulder (principal)
CPT/HCPCS: 73030

== ENCOUNTER 2021-06-25 13:30 | Outpatient (RCR) | payer MEDICARE, SELFPAY ==
--- NOTE | 2021-06-19 12:32 | HP.PTEVAL_ITS ---
Patient's Visit Information GIANCARLO ANGULO is a 81 year old F referred to Physical Therapy by Dr. Suman Joyce MD with a diagnosis of dizzyness. Date of Evaluation: 06/19/21 Physical Therapist: Juanpablo Michel, JOSELYNT, OCS, CSCS - Visit Plan Frequency: 1-2x /Week Duration: 2-4 Weeks Plan: 1-2x/week for 2-4 weeks as needed for positional treatments and exericses as needed. - Subjective Got up two months ago out of bed adn was really dizzy and vomitted adn called squad and was in hospital. Sugar and blood pressure were up. Run tests/catscan and called it vertigo Saw ENT and family doctor. Has OA in R shoulder and is having therapy for that tomorrow. ENT sent here for vertigo. MRI was OK except for vertigo. Small tumor calcified on back of head not related to dizzyness. Dizzyness is improving. It is 80+% better since onset adn continues to improve. If I lie down in bed will get very dizzy and doing ex for that. Ex for dizzyness is described as dizzy ex lying on side and turning head. Dizzy now is not bad, can tell when she lies down at night but not bad spinning. Rest of the day is just careful with turns. Feels pretty normal other times. Balance is normal adn no falls, no AD needed. Sleep is OK lately. Dizzyness keeps her from getting out and walking on her own and careful with bending to lift. Normally would be walking for fitness. Not employed. - Objective Walks slowly but steady back to [facility] steps reciprocal with one rail up and descends one rail step to due to knee pain. Cervical aROM is painfree and limtied symmetrically. UE AROM is WNL ROM but R flexion and IR are painful. Strength 3+ B in shoulders with some pain R flexion and er. - L hallpike miguel. + R hallpike miguel with up torsional nystagmus for 15 seconds. Treated with Emely muller and then instruction in HEP with HO. - Balance/Special Test Scores Functional Gait Assessment Score: 27 % Disability: 10.0000 Dizziness Score: 46 - Goals Goal 1:: abolish dizzyness 100% Goal Time Frame: 2-4 Weeks Goal 2:: pt feel like she can walk again without limitations. Goal Time Frame: 2-4 Weeks Goal 3:: DHI score 6 or less Goal Time Frame: 2-4 Weeks - Rehabilitation Potential Physical Therapy Diagnosis: BPPV. r canal post Rehabilitation Potential: Good - Anticipated Interventions Patient/Client Instruction: Educate patient on: Condition, Plan of Care For the Purpose of:: To increase tolerance to activity/condition/position Comment: vestibular ex/treat For the Purpose of:: To increase tolerance to activity/condition/position, To improve ability of physical actions for home/community/work/leisure Thank you for the opportunity to evaluate your patient. For Medicare and Medicare HMO plans, please review the plan of care and approve it. It will need to be FAXED BACK to us at [phone] for Medicare purposes. For Medicare only, by signing this I certify the plan of care. Please let me know if there are questions or concerns regarding this plan of care. Physician Signature: Date:
--- NOTE | 2021-08-21 16:20 | HP.PT.NRP ---
GIANACRLO ANGULO was seen in my office for initial evaluation on 06/19/21. The following Plan of Care was established for this patient: Initial Frequency: 1-2x /Week Initial Duration: 2-4 Weeks Patient/Client Instruction: Educate patient on: Condition, Plan of Care For the Purpose of:: To increase tolerance to activity/condition/position For the Purpose of:: To increase tolerance to activity/condition/position, To improve ability of physical actions for home/community/work/leisure This patient was last seen in our office 06/25/21. Pertinent comments regarding their Physical therapy will appear below: Pt seen two visits of positional treatments and was 80% better. Was to f/u two weeks later but did not attend. i will discontinue at this time due to nonattendance. At this point I will be discontinuing this patient from physical therapy. I would be happy to see this patient again in the future if found appropriate by the physician. Thank you! Juanpablo Michel, DPT, OCS, CSCS Balance/Gait/Functional tests - Balance/Special Test Scores Functional Gait Assessment Score: 27 % Disability: 10.0000 Dizziness Score: 46
== END 2021-06-25 19:00 | disposition home or self-care (01) ==
LOC: PT 13:30
PROVIDERS: PCP Family Medicine; Referring Provider Otolaryngology; Visit Provider Otolaryngology
DX: R42 Dizziness and giddiness (principal)
CPT/HCPCS: 97161; 97530

== ENCOUNTER → 2021-08-15 | Outpatient (CLI) | payer MEDICARE, SELFPAY ==
[2021-08-15 12:37] LABS: Absolute Lymphocyte Count 1.84 X10^3/uL (0.83-4.51); Absolute Neutrophil Count 5.4 X10^3/uL (2.0-7.7); Basophil# 0.04 X10^3/uL; Basophil% 0.5 % (0-1); Eosinophil# 0.24 X10^3/uL; Hematocrit 37.1 % (37-47); Hemoglobin 12.3 g/dL (12.0-15.0); Lymphocyte # 1.84 X10^3/ul (0.83-4.51); Lymphocyte % 22.6 % (19-41); Mean Corp Hgb Conc 33.2 g/dL (32-36); Mean Corpuscular Hgb 29.9 pg (27.0-32.0); Mean Corpuscular Volume 90.3 fL (81-99); Mean Platelet Vol. 10.4 fl (6.2-12.0); Monocyte# 0.56 X10^3/uL; Monocyte% 6.9 % (0-10); NRBC Flagged by Analyzer 0 % (0-5); Neutrophil # 5.42 X10^3/uL (2.7-7.7); Neutrophil % 66.6 % (47-70); Platelet Count 204 K/mm3 (150-450); RBC Distribution Width CV 12.5 % (11.6-14.6); RBC Distribution Width SD 41.8 fl (35.1-43.9); Red Blood Count 4.11 M/mm3 (4.2-5.4); White Blood Count 8.1 K/mm3 (4.4-11.0)
[2021-08-15 13:03] LABS: ALB/GLOB Ratio 1.1 RATIO (0.9-2.4); AST(SGOT) 17 U/L (15-37); Alanine Aminotransfer ALT/SGPT 19 U/L (13-56); Albumin, Serum 3.5 g/dL (3.2-5.0); Alkaline Phosphatase 56 U/L (45-117); Anion Gap 8 (5-15); BUN 15 mg/dL (7-18); Calcium,Total 9.1 mg/dL (8.5-10.1); Chloride 106 mmol/L (98-107); Creatinine, Serum 1.15 mg/dL (0.55-1.02); EST Glomerular Filtration Rate 48 mL/min (>60); Est Glom Filt Rate - Afr Amer 58 mL/min (>60); Free T3 3.2 pg/mL (2.18-3.98); Globulin 3.1 g/dL (2.2-4.2); Glucose 246 mg/dL (74-106); Potassium 4.5 mmol/L (3.5-5.1); Protein, Total 6.6 g/dL (6.4-8.2); Sodium Level 137 mmol/L (136-145); T4 Free Direct 0.95 ng/dL (0.76-1.46); Thyroid Stim Hormone (TSH) 2.42 uIU/mL (0.358-3.74)
== END | disposition home or self-care (01) ==
LOC: MTLAB 09:13
PROVIDERS: PCP Family Medicine; Referring Provider Family Medicine; Visit Provider Family Medicine
DX: E03.9 Hypothyroidism, unspecified (principal); N18.31 Chronic kidney disease, stage 3a; Z51.81 Encounter for therapeutic drug level monitoring
CPT/HCPCS: 36415; 80053; 84439; 84443; 84481; 85025

== ENCOUNTER → 2021-08-28 | Outpatient (CLI) | payer MEDICARE, SELFPAY ==
--- NOTE | 2021-08-28 12:59 | BI_ITS ---
MAMMOGRAPHY - BILATERAL SCREENING REASON FOR EXAM: Female, 81 years old. Routine annual screening examination. PERTINENT HISTORY: Non-contributory. TECHNIQUE: Digital bilateral breast simon (3D mammographic acquisition) in the CC and MLO projections. 2-D mediolateral oblique (MLO) and craniocaudad (CC) views of both breasts were obtained. CAD: Full Field Digital Mammography with Computer Added Detection was performed. COMPARISON: Comparison is made with prior study dated 04/04/2020 and 01/09/2015. FINDINGS: Breast Composition: The breasts are almost entirely fatty. There are no dominant masses or suspicious calcifications. Stable 5 mm well-defined nodule in the upper lateral aspect of the left breast with a central notch suggestive of a small intramammary lymph node. Stable small benign-appearing bilateral axillary lymph nodes. No other significant abnormalities are identified. There has been no significant change since the prior study. BI/SCRN MAMM (CAD)W/SIMON BILAT IMPRESSION: Stable bilateral screening mammogram. Yearly follow-up mammogram recommended. (A) ASSESSMENT CATEGORY: BIRADS Category 2: Benign. A letter regarding these results will be sent to the patient by the facility within 30 days. Approximately 10% of breast cancers are not detected by mammography. A normal mammogram should not delay biopsy of a clinically suspicious abnormality. [id number] Electronically Signed: Blaine Velasquez MD at 13:38 EDT ,
== END | disposition home or self-care (01) ==
LOC: OPBI 12:57
PROVIDERS: PCP Family Medicine; Visit Provider Family Medicine
DX: Z12.31 Encounter for screening mammogram for malignant neoplasm of breast (principal)
CPT/HCPCS: 77063; 77067

== ENCOUNTER → 2021-09-04 | Outpatient (CLI) | payer MEDICARE, SELFPAY | END | disposition home or self-care (01) | PROVIDERS: PCP Family Medicine; Visit Provider Family Medicine | DX: N39.0 Urinary tract infection, site not specified (principal) | CPT/HCPCS: 87077; 87086; 87088; 87186 ==

== ENCOUNTER → 2022-05-19 | Outpatient (CLI) | payer MEDICARE, SELFPAY | END | disposition home or self-care (01) | PROVIDERS: PCP Family Medicine; Visit Provider Family Medicine | DX: Z20.828 Contact with and (suspected) exposure to other viral communicable diseases (principal); Z20.818 Contact with and (suspected) exposure to other bacterial communicable diseases; R05.9 Cough, unspecified; R50.9 Fever, unspecified | CPT/HCPCS: 87635; U0003; U0005 ==

== ENCOUNTER → 2022-08-28 | Outpatient (CLI) | payer MEDICARE, SELFPAY ==
[2022-08-28 16:45] LABS: Absolute Lymphocyte Count 1.49 X10^3/uL (0.83-4.51); Basophil# 0.05 X10^3/uL; Basophil% 0.6 % (0-1); Eosinophil# 0.18 X10^3/uL; Eosinophils% 2.1 % (0-5); Hemoglobin 12.4 g/dL (12.0-15.0); Lymphocyte # 1.49 X10^3/ul (0.83-4.51); Lymphocyte % 17.7 % (19-41); Mean Corp Hgb Conc 30.2 g/dL (32-36); Mean Corpuscular Hgb 29.8 pg (27.0-32.0); Mean Corpuscular Volume 98.6 fL (81-99); Mean Platelet Vol. 10.2 fl (6.2-12.0); Monocyte# 0.68 X10^3/uL; Monocyte% 8.1 % (0-10); NRBC Flagged by Analyzer 0 % (0-5); Neutrophil # 6.01 X10^3/uL (2.7-7.7); Neutrophil % 71.1 % (47-70); Platelet Count 187 K/mm3 (150-450); RBC Distribution Width CV 13.4 % (11.6-14.6); RBC Distribution Width SD 48.6 fl (35.1-43.9); Red Blood Count 4.16 M/mm3 (4.2-5.4); White Blood Count 8.4 K/mm3 (4.4-11.0)
[2022-08-28 16:58] LABS: T3 Total - Triiodothyronine 1.02 ng/mL (0.6-1.81)
[2022-08-28 17:15] LABS: ALB/GLOB Ratio 1.1 RATIO (0.9-2.4); AST(SGOT) 27 U/L (15-37); Alanine Aminotransfer ALT/SGPT 24 U/L (13-56); Albumin, Serum 3.5 g/dL (3.2-5.0); Alkaline Phosphatase 57 U/L (45-117); Anion Gap 5 (5-15); BUN 22 mg/dL (7-18); Calcium,Total 9.6 mg/dL (8.5-10.1); Chloride 110 mmol/L (98-107); Cholesterol 136 mg/dL (200); Creatinine, Serum 1.22 mg/dL (0.55-1.02); EST Glomerular Filtration Rate 45 mL/min (>60); Est Glom Filt Rate - Afr Amer 54 mL/min (>60); Globulin 3.3 g/dL (2.2-4.2); Glucose 137 mg/dL (74-106); High Density Lipoprotein 65 mg/dL; Protein, Total 6.8 g/dL (6.4-8.2); Sodium Level 140 mmol/L (136-145); T4 Free Direct 0.95 ng/dL (0.76-1.46); Thyroid Stim Hormone (TSH) 2.88 uIU/mL (0.358-3.74); Triglycerides 152 mg/dL; Very Low Density Lipoprotein 30 mg/dL (5-40)
[2022-08-30 13:52] LABS: Free T3 2.7 pg/mL (2.18-3.98)
== END | disposition home or self-care (01) ==
LOC: BFHLAB 08:14
PROVIDERS: PCP Family Medicine; Visit Provider Family Medicine
DX: E03.9 Hypothyroidism, unspecified (principal); N18.31 Chronic kidney disease, stage 3a; Z51.81 Encounter for therapeutic drug level monitoring
CPT/HCPCS: 36415; 80053; 80061; 84439; 84443; 84480; 84481; 85025

== ENCOUNTER → 2022-08-31 | Outpatient (CLI) | payer MEDICARE, SELFPAY ==
--- NOTE | 2022-08-31 12:46 | BI_ITS ---
MAMMOGRAPHY - BILATERAL SCREENING 3-D TOMOSYNTHESIS REASON FOR EXAM: Female, 82 years old. Routine screening PERTINENT HISTORY: No significant family history. TECHNIQUE: 2-D mammograms and 3-D Tomosynthesis of the breast (s) were performed. CAD was performed. COMPARISON: 08/28/2021 FINDINGS: The breast composition is almost entirely fat. Scattered benign calcifications are seen. No dense spiculated masses or suspicious microcalcifications are identified. No architectural distortion is identified. There is no skin thickening or retraction. Stable well-defined subcentimeter nodules in the upper outer quadrants of both breasts. There has been no significant change since the prior study. BI/SCRN MAMM (CAD)W/SIMON BILAT IMPRESSION: No mammographic signs of malignancy. Routine yearly mammograms recommended. ASSESSMENT CATEGORY: BIRADS Category 1: Negative. A letter regarding these results will be sent to the patient by the facility within 30 days. FOLLOW UP RECOMMENDATION: Yearly follow up mammogram recommended. (A) Approximately 10% of breast cancers are not detected by mammography. A normal mammogram should not delay biopsy of a clinically suspicious abnormality. Electronically Signed: Jesus Colón MD at 13:41 EDT ,
== END | disposition home or self-care (01) ==
LOC: OPBI 12:44
PROVIDERS: PCP Family Medicine; Referring Provider Family Medicine; Visit Provider Family Medicine
DX: Z12.31 Encounter for screening mammogram for malignant neoplasm of breast (principal)
CPT/HCPCS: 77063; 77067

== ENCOUNTER → 2022-10-22 | Outpatient (CLI) | payer MEDICARE, SELFPAY ==
--- NOTE | 2022-10-22 12:25 | NM_ITS ---
CLINICAL: 82-year-old female with history of gastroesophageal reflux disease and abdominal pain. SEMI-SOLID PHASE 99m Tc SULFUR COLLOID GASTRIC EMPTYING STUDY COMPARISON: None available FINDINGS: The patient was administered 1.0 mCi of 99m Tc sulfur colloid mixed with oatmeal and consumed per os. Image acquisitions in the anterior-posterior projections were obtained for 60 minutes. There is prompt visualization of the stomach. There is no gastroesophageal reflux identified. There is persistent activity in the distal esophagus. The T ? raw data emptying was calculated to be 35.15 minutes, (Normal: 12-56 minutes). NM/Gastric Emptying Study IMPRESSION: 1. NORMAL 99m Tc sulfur colloid semi-solid phase (oatmeal) gastric emptying imaging examination. A. There is normal and preserved semi-solid phase gastric emptying compared to normal controls. (Eligio et al, J Nucl Med Tech 38: 186, 2010). Electronically Signed: Bryant Cohen DO at 20:58 EDT ,
== END | disposition home or self-care (01) ==
LOC: NM 12:24
PROVIDERS: PCP Family Medicine; Referring Provider Family Medicine; Visit Provider Family Medicine
DX: R10.9 Unspecified abdominal pain (principal); K21.9 Gastro-esophageal reflux disease without esophagitis; R68.81 Early satiety
CPT/HCPCS: 78264; A9541

== ENCOUNTER → 2023-04-19 | Outpatient (CLI) | payer MEDICARE, SELFPAY ==
[2023-04-19 12:56] LABS: Erythrocyte Sedimentation Rate < 1 mm/hr (0-30)
[2023-04-19 12:58] LABS: Absolute Lymphocyte Count 2.24 X10^3/uL (0.83-4.51); Absolute Neutrophil Count 6.2 X10^3/uL (2.0-7.7); Basophil# 0.05 X10^3/uL; Basophil% 0.5 % (0-1); Eosinophils% 2.2 % (0-5); Hematocrit 38.6 % (37-47); Hemoglobin 12.7 g/dL (12.0-15.0); Lymphocyte # 2.24 X10^3/ul (0.83-4.51); Lymphocyte % 24.2 % (19-41); Mean Corp Hgb Conc 32.9 g/dL (32-36); Mean Corpuscular Hgb 30.4 pg (27.0-32.0); Mean Corpuscular Volume 92.3 fL (81-99); Mean Platelet Vol. 10.5 fl (6.2-12.0); Monocyte# 0.56 X10^3/uL; Monocyte% 6.1 % (0-10); NRBC Flagged by Analyzer 0 % (0-5); Neutrophil # 6.18 X10^3/uL (2.7-7.7); Neutrophil % 66.8 % (47-70); Platelet Count 222 K/mm3 (150-450); RBC Distribution Width CV 13.5 % (11.6-14.6); Red Blood Count 4.18 M/mm3 (4.2-5.4); White Blood Count 9.3 K/mm3 (4.4-11.0)
[2023-04-19 13:07] LABS: Vitamin B12 340 pg/mL (211-911)
[2023-04-19 13:25] LABS: ALB/GLOB Ratio 1.3 RATIO (0.9-2.4); AST(SGOT) 14 U/L (15-37); Alanine Aminotransfer ALT/SGPT 17 U/L (13-56); Albumin, Serum 3.9 g/dL (3.2-5.0); Alkaline Phosphatase 62 U/L (45-117); Anion Gap 6 (5-15); BUN 26 mg/dL (7-18); BUN/Creat Ratio 18.3 RATIO (10-20); CRP < 2.90 mg/L (0.0-3.0); Calcium,Total 10.1 mg/dL (8.5-10.1); Chloride 108 mmol/L (98-107); Creatinine, Serum 1.42 mg/dL (0.55-1.02); EST Glomerular Filtration Rate 38 mL/min (>60); Est Glom Filt Rate - Afr Amer 46 mL/min (>60); Glucose 103 mg/dL (74-106); LDH 196 U/L (84-246); Potassium 5.1 mmol/L (3.5-5.1); Protein, Total 6.9 g/dL (6.4-8.2); Sodium Level 137 mmol/L (136-145); Thyroid Stim Hormone (TSH) 2.76 uIU/mL (0.358-3.74)
== END | disposition home or self-care (01) ==
LOC: BFHLAB 10:00
PROVIDERS: PCP Family Medicine; Visit Provider Family Medicine
DX: E03.9 Hypothyroidism, unspecified (principal); N18.31 Chronic kidney disease, stage 3a; Z51.81 Encounter for therapeutic drug level monitoring; M79.10 Myalgia, unspecified site; M25.50 Pain in unspecified joint; E53.8 Deficiency of other specified B group vitamins
CPT/HCPCS: 36415; 80053; 82607; 83615; 84439; 84443; 84481; 85025; 85652; 86140

== ENCOUNTER → 2023-11-16 | Outpatient (CLI) | payer MEDICARE, SELFPAY ==
[2023-11-16 12:05] LABS: Absolute Lymphocyte Count 1.97 X10^3/uL (0.83-4.51); Absolute Neutrophil Count 6.2 X10^3/uL (2.0-7.7); Basophil# 0.06 X10^3/uL; Basophil% 0.7 % (0-1); Eosinophil# 0.27 X10^3/uL; Hematocrit 37.9 % (37-47); Hemoglobin 12.2 g/dL (12.0-15.0); Lymphocyte # 1.97 X10^3/ul (0.83-4.51); Lymphocyte % 21.8 % (19-41); Mean Corp Hgb Conc 32.2 g/dL (32-36); Mean Corpuscular Hgb 28.9 pg (27.0-32.0); Mean Corpuscular Volume 89.8 fL (81-99); Mean Platelet Vol. 10.5 fl (6.2-12.0); Monocyte% 5.5 % (0-10); NRBC Flagged by Analyzer 0 % (0-5); Neutrophil # 6.21 X10^3/uL (2.7-7.7); Neutrophil % 68.6 % (47-70); Platelet Count 232 K/mm3 (150-450); RBC Distribution Width CV 13.2 % (11.6-14.6); RBC Distribution Width SD 43.3 fl (35.1-43.9); Red Blood Count 4.22 M/mm3 (4.2-5.4); White Blood Count 9.1 K/mm3 (4.4-11.0)
[2023-11-16 12:24] LABS: Microalbumin,Random Urine 27.7 mg/L (NO RANGE EST.); Microalbumin:Creatinine Ratio 50.9 mg/g CRE (<30 mg/g CRE)
[2023-11-16 12:44] LABS: Vitamin B12 1048 pg/mL (211-911)
[2023-11-16 12:50] LABS: ALB/GLOB Ratio 1.3 RATIO (0.9-2.4); AST(SGOT) 12 U/L (15-37); Alanine Aminotransfer ALT/SGPT 14 U/L (13-56); Albumin, Serum 3.7 g/dL (3.2-5.0); Alkaline Phosphatase 59 U/L (45-117); Anion Gap 5 (5-15); BUN 28 mg/dL (7-18); BUN/Creat Ratio 20.1 RATIO (10-20); Calcium,Total 9.8 mg/dL (8.5-10.1); Chloride 110 mmol/L (98-107); Cholesterol 141 mg/dL (200); Creatinine, Serum 1.39 mg/dL (0.55-1.02); EST Glomerular Filtration Rate 39 mL/min (>60); Est Glom Filt Rate - Afr Amer 47 mL/min (>60); Globulin 2.9 g/dL (2.2-4.2); Glucose 134 mg/dL (74-106); High Density Lipoprotein 78 mg/dL; Potassium 4.8 mmol/L (3.5-5.1); Protein, Total 6.6 g/dL (6.4-8.2); Sodium Level 139 mmol/L (136-145); Triglycerides 122 mg/dL; Very Low Density Lipoprotein 24 mg/dL (5-40)
== END | disposition home or self-care (01) ==
LOC: BFHLAB 08:34
PROVIDERS: PCP Family Medicine; Referring Provider Family Medicine; Visit Provider Family Medicine
DX: I10 Essential (primary) hypertension (principal); E11.9 Type 2 diabetes mellitus without complications; E03.9 Hypothyroidism, unspecified; E78.5 Hyperlipidemia, unspecified; Z51.81 Encounter for therapeutic drug level monitoring
CPT/HCPCS: 36415; 80053; 80061; 82043; 82570; 82607; 83036; 85025

== ENCOUNTER → 2023-11-19 | Outpatient (CLI) | payer MEDICARE, SELFPAY ==
--- NOTE | 2023-11-19 12:40 | BI_ITS ---
MAMMOGRAPHY - BILATERAL SCREENING REASON FOR EXAM: Female, 83 years old. Routine annual screening examination. PERTINENT HISTORY: Non-contributory. TECHNIQUE: Digital bilateral breast simon (3D mammographic acquisition) in the CC and MLO projections. 2-D mediolateral oblique (MLO) and craniocaudad (CC) views of both breasts were obtained. CAD: Full Field Digital Mammography with Computer Added Detection was performed. COMPARISON: Comparison is made with prior study dated August 31, 2022 and August 28, 2021. FINDINGS: Breast Composition: The breasts are almost entirely fatty. There are no dominant masses or suspicious calcifications. Stable 5 mm well-defined nodule in the upper lateral aspect of the left breast suggestive of a small lymph node. No other significant abnormalities are identified. There has been no significant change since the prior study. BI/SCRN MAMM (CAD)W/SIMON BILAT IMPRESSION: Stable bilateral screening mammogram. Yearly follow-up mammogram recommended. (A) ASSESSMENT CATEGORY: BIRADS Category 2: Benign. A letter regarding these results will be sent to the patient by the facility within 30 days. Approximately 10% of breast cancers are not detected by mammography. A normal mammogram should not delay biopsy of a clinically suspicious abnormality. [id number] Electronically Signed: Blaine Velasquez MD at 13:50 EDT ,
--- NOTE | 2023-11-19 12:40 | BD_ITS ---
STUDY: DUAL ENERGY X-RAY ABSORPTIOMETRY / DXA REASON FOR EXAM: Female, 83 years old. 627.8Menopausal postmenopausalBONE DENSITY REASON FOR EXAM TECHNIQUE: Bone Mineral Density (BMD) measurements of lumbar spine and bilateral hips were obtained. COMPARISON: Comparison is made with prior study April 04, 2020. FINDINGS: Lumbar Spine (L1-L4): g/cm2 (0.790) / T-score (-2.3) / Z-score (0.4) Findings are suggestive of osteopenia with a high fracture risk. Left Femur Total: g/cm2 (0.611) / T-score (-2.7) / Z-score (-0.5) Left Femoral Neck: g/cm2 (0.484) / T-score (-3.3) / Z-score (-0.9) Right Femur Total: g/cm2 (0.573) / T-score (-3.0) / Z-score (-0.8) Right Femoral Neck: g/cm2 (0.499) / T-score (-3.2) / Z-score (-0.7) The T-Scores on the most recent prior examination were: Lumbar Spine (L1-L4): There has been worsening of bone density since the previous examination. Left Femur Total: which represents a worsening of 9.3%. Right Femur Total: which represents a worsening of 1.6%. BD/Dexa Bone Density Study IMPRESSION: The patient is considered osteoporotic as outlined below according to World Param Organization (WHO) criteria with a high fracture risk. There has been worsening of bone density since the previous examination. Reference Information: The T-score is the number of standard deviations above or below the standard which is normal for young adults at their peak bone mineral density. The World Health Organization (WHO) interprets the T-scores as follows: Above -1 Normal bone density Between -1 and -2.5 Osteopenia Equal to / or below -2.5 Osteoporosis As a practical clinical guideline, osteopenia may be graded as follows: Mild -1 through -1.5 Moderate -1.6 through -2.0 Severe -2.1 through -2.4 The Z-score is the number of standard deviations above or below age-matched controls. A Z-score of less than -1.5 would be considered abnormal. References: 1. NIH Osteoporosis and Related Bone Diseases www osteo.org 2. International Society for Clinical Densitometry www iscd.org 3. National Osteoporosis Foundation www nof.org Electronically Signed: Blaine Velasquez MD at 12:47 EDT ,
== END | disposition home or self-care (01) ==
LOC: OPBD 12:37
PROVIDERS: PCP Family Medicine; Referring Provider Family Medicine; Visit Provider Family Medicine
DX: Z12.31 Encounter for screening mammogram for malignant neoplasm of breast (principal); Z78.0 Asymptomatic menopausal state
CPT/HCPCS: 77063; 77067; 77080

== ENCOUNTER → 2024-04-25 | Outpatient (CLI) | payer MEDICARE, SELFPAY ==
[2024-04-25 17:49] LABS: Absolute Lymphocyte Count 2.12 X10^3/uL (0.83-4.51); Absolute Neutrophil Count 8.3 X10^3/uL (2.0-7.7); Basophil# 0.06 X10^3/uL; Basophil% 0.5 % (0-1); Eosinophil# 0.29 X10^3/uL; Eosinophils% 2.6 % (0-5); Hematocrit 38.6 % (37-47); Hemoglobin 12.7 g/dL (12.0-15.0); Lymphocyte # 2.12 X10^3/ul (0.83-4.51); Lymphocyte % 18.7 % (19-41); Mean Corp Hgb Conc 32.9 g/dL (32-36); Mean Corpuscular Hgb 29.4 pg (27.0-32.0); Mean Corpuscular Volume 89.4 fL (81-99); Mean Platelet Vol. 10.8 fl (6.2-12.0); Monocyte# 0.57 X10^3/uL; NRBC Flagged by Analyzer 0 % (0-5); Neutrophil # 8.29 X10^3/uL (2.7-7.7); Neutrophil % 72.9 % (47-70); Platelet Count 259 K/mm3 (150-450); RBC Distribution Width CV 13.5 % (11.6-14.6); RBC Distribution Width SD 44.4 fl (35.1-43.9); Red Blood Count 4.32 M/mm3 (4.2-5.4); White Blood Count 11.4 K/mm3 (4.4-11.0)
[2024-04-25 20:17] LABS: Hemoglobin A1c 6.3 % (<=5.6)
[2024-04-25 20:35] LABS: ALB/GLOB Ratio 1.8 RATIO (0.9-2.4); AST(SGOT) 19 U/L (<=31); Alanine Aminotransfer ALT/SGPT 12 U/L (<=34); Albumin, Serum 4.3 g/dL (3.4-4.8); Alkaline Phosphatase 38 U/L (35-104); Anion Gap 14 (5-15); BUN 26 mg/dL (4-19); BUN/Creat Ratio 19.1 RATIO (10-20); Calcium,Total 9.5 mg/dL (7.6-11.0); Carbon Dioxide 19.8 mmol/L (21.0-32.0); Chloride 104 mmol/L (98-108); Creatinine, Serum 1.37 mg/dL (0.70-1.20); EST Glomerular Filtration Rate 38 (>60); Globulin 2.4 g/dL (2.2-4.2); Glucose 172 mg/dL (70-99); Potassium 4.6 mmol/L (3.3-5.1); Protein, Total 6.6 g/dL (5.9-8.4); Sodium Level 137 mmol/L (133-145); Total Bilirubin 0.24 mg/dL (0.00-1.30)
[2024-04-25 21:53] LABS: Vitamin B12 821 pg/mL (180-914)
== END | disposition home or self-care (01) ==
LOC: BFHLAB 14:25
PROVIDERS: PCP Family Medicine; Referring Provider Family Medicine; Visit Provider Family Medicine
DX: I10 Essential (primary) hypertension (principal); E11.9 Type 2 diabetes mellitus without complications; Z51.81 Encounter for therapeutic drug level monitoring; E53.8 Deficiency of other specified B group vitamins; E55.9 Vitamin D deficiency, unspecified
CPT/HCPCS: 36415; 80053; 82306; 82607; 83036; 85025

== ENCOUNTER → 2024-09-08 | Outpatient (CLI) | payer MEDICARE, SELFPAY | END | disposition home or self-care (01) | LOC: LABSPEC 08:34 | PROVIDERS: PCP Family Medicine; Visit Provider Family Medicine | DX: N39.0 Urinary tract infection, site not specified (principal) | CPT/HCPCS: 87077; 87086; 87088; 87186 ==

== ENCOUNTER → 2024-09-08 | Outpatient (CLI) | payer MEDICARE, SELFPAY ==
[2024-09-08 15:11] LABS: Hematocrit 36.2 % (37-47); Hemoglobin 11.9 g/dL (12.0-15.0); Immature Granulocytes Count 0.020 X10^3/uL (0.0-0.0); Mean Corp Hgb Conc 32.9 g/dL (32-36); Mean Corpuscular Volume 90.0 fL (81-99); Mean Platelet Vol. 10.2 fl (6.2-12.0); NRBC Flagged by Analyzer 0 % (0-5); Platelet Count 205 K/mm3 (150-450); RBC Distribution Width CV 13.2 % (11.6-14.6); RBC Distribution Width SD 43.6 fl (35.1-43.9); Red Blood Count 4.02 M/mm3 (4.2-5.4); White Blood Count 7.4 K/mm3 (4.4-11.0)
[2024-09-08 16:15] LABS: AST(SGOT) 21 U/L (<=31); Alanine Aminotransfer ALT/SGPT 11 U/L (<=34); Albumin, Serum 3.9 g/dL (3.4-4.8); Alkaline Phosphatase 40 U/L (35-104); Anion Gap 13 (5-15); BUN 26 mg/dL (4-19); BUN/Creat Ratio 19.3 RATIO (10-20); Calcium,Total 9.6 mg/dL (7.6-11.0); Carbon Dioxide 19.0 mmol/L (21.0-32.0); Chloride 106 mmol/L (98-108); Globulin 2.2 g/dL (2.2-4.2); Glucose 159 mg/dL (70-99); Potassium 4.7 mmol/L (3.3-5.1); Troponin T High Sensitivity 12 ng/L (<=14)
[2024-09-08 16:17] LABS: CRP < 3.00 mg/L (0.0-3.0); Free T3 2.3 pg/mL (2.18-3.98); Vitamin B12 588 pg/mL (180-914)
--- OUTSIDE RECORDS SUMMARY | 2024-09-08 19:16 | XMS RPT_ITS | CCD ---
Author Organization [facility] Care Team Providers Care Senior Financial Name Role Phone Dr. Sugey Simpson Primary Care Provider Dr. Tay Hussein Emergency Provider Chayoearletoncristopher, Dr. Lorenzo Admit Provider Cecil, Dr. Lorenzo Other Provider Wallace Blankenship Attending Provider Unavailable Dr. Yony Gupta Attending Provider Cecil, Dr. Lorenzo Attending Provider Dr. Sugey Simpson Primary Care Provider Dr. Tay Hussein Emergency Provider Chayoearletoncristopher, Dr. Lorenzo Admbrian Provider Cecil, Dr. Lorenzo Attending Provider [facility], Dr. Lorenzo Other Provider Derrickys, Sugey Attending Unavailable Malys, Sugey Primary Care Unavailable Malys, Sugey Referring Unavailable Malys, Sugey Attending Unavailable Malys, Sugey Primary Care Unavailable Malys, Sugey Referring Unavailable Malys, Sugey Attending Unavailable Malys, Sugey Primary Care Unavailable Malys, Sugey Referring Unavailable Malys Dr. Sugey JENNINGS Primary Care Provider Dr. Sugey Simpson DO Attending Provider Dr. Sugey Simpson DO Referring Provider Dr. Sugey Simpson DO Primary Care Provider Korey NEVAREZ, Dr. Ochoa Attending Provider [phone] Dr. Sugey Simpson DO Attending Provider Candy NEVAREZ, Dr. Bhakta Attending Provider [phone] Allergies Allergy Classification Reported Allergen(s) Allergy Type Date of Onset Reaction(s) Facility (13 sources) Codeine Drug Allergy 05-03-2021 Nausea [facility] (1 source) Codeine Drug Allergy 05-03-2021 [facility] Repository Medications Current Medications Medication Drug Class(es) Dates Sig (Normalized) Sig (Original) levothyroxine sodium 0.088 mg oral tablet (13 sources) l-Thyroxine Start: 06-30-2017 take 1 tablet by mouth once daily Levothyroxine 88 mcg tablet Active 88 ug PO daily June 30, 2017 12:00am lisinopril 10 mg oral tablet (13 sources) Angiotensin Converting Enzyme Inhibitor Start: 06-30-2017 take 1 tablet by mouth once daily Lisinopril 10 mg tablet Active 10 mg PO daily June 30, 2017 12:00am meclizine hydrochloride 12.5 mg oral tablet (13 sources) Antiemetic Start: 05-05-2021 take 2 tablets by mouth three times daily as needed Meclizine 12.5 mg tablet Active 25 mg PO 3 TIMES DAILY NEEDED as needed for Dizzyness May 05, 2021 12:00am Start: 05-05-2021 take 25 mg by mouth three times daily as needed Meclizine Active 25 MG PO 3 TIMES DAILY NEEDED May 04, 2021 11:00pm metFORMIN hydrochloride 500 mg oral tablet (13 sources) Biguanide Start: 06-30-2017 take 1 tablet by mouth twice daily Metformin 500 mg tablet Active 500 mg PO TWICE A DAY June 30, 2017 12:00am pravastatin sodium 20 mg oral tablet (13 sources) HMG-CoA Reductase Inhibitor Start: 06-30-2017 take 1 tablet by mouth once daily Pravastatin 20 mg tablet Active 20 mg PO daily June 30, 2017 12:00am Completed/Discontinued Medications Medication Drug Class(es) Dates Sig (Normalized) Sig (Original) acetaminophen 325 mg / HYDROcodone bitartrate 5 mg oral tablet (13 sources) Opioid Agonist Start: 11-04-2019 End: 11-06-2019 Hydrocodone-Acetami nophen 1 TABLET tablet Discontinued 1 {tbl} PO EVERY 4 HOURS NEEDED as needed for Pain 10 2 0 November 04, 2019 November 05, 2019 12:00am November 06, 2019 12:02am Contusion of rib on left side Contusion of left front wall of thorax, initial encounter Start: 11-04-2019 End: 11-06-2019 take 1 tablet by mouth every four hours as needed Hydrocodone-Acetaminophen Discontinued 1 TABLET PO EVERY 4 HOURS NEEDED 10 2 November 04, 2019 November 05, 2019 11:02pm Problems Active Problems Problem Classification Problem Date Documented Da te Episodic/Chronic Conditions associated with dizziness or vertigo (20 sources) Benign paroxysmal positional vertigo; Translations: [Benign paroxysmal vertigo, unspecified ear] Episodic Diabetes mellitus without complication (13 sources) Type 2 diabetes mellitus; Translations: [Type 2 diabetes mellitus without complications] 11-04-2019 Chronic Disorders of lipid metabolism (13 sources) Hyperlipidemia; Translations: [Hyperlipidemia, unspecified] 11-04-2019 Chronic Essential hypertension (14 sources) Hypertensive disorder; Translations: [Essential (primary) hypertension] Onset: 05-05-2024 11-04-2019 Chronic Other injuries and conditions due to external causes (1 source) Other specified injuries of thorax, initial encounter; Translations: [Contusion of rib on left side] 11-05-2019 Episodic Superficial injury; contusion (12 sources) Contusion of rib; Translations: [Contusion of left front wall of thorax, initial encounter] 11-05-2019 Episodic Thyroid disorders (13 sources) Hypothyroidism; Translations: [Hypothyroidism, unspecified] 11-04-2019 Chronic Past or Other Problems Problem Classification Problem Date Documented Da te Episodic/Chronic Other screening for suspected conditions (not mental disorders or infectious disease) (1 source) Encounter for screening mammogram for malignant neoplasm of breast; Translations: [Encounter for screening mammogram for malignant neoplasm of breast] Onset: 12-11-2023 Episodic Results Test Name Value Interpretation Reference Range Facility Absolute neutrophil countOrd ered By: Sugey Simpson on 04-25-2024 Neutrophils (Bld) [#/Vol] 8.3 10*3/uL High 2.0-7.7 [facility] Anion gap in Serum or Plasma Ordered By: Sugey Simpson on 04-25-2024 Anion gap [Moles/Vol] 14 mmol/L 5-15 [facility] BUN/creatinine ratioOrdered By: Sugey Simpson on 04-25-2024 Urea nitrogen/Creatinine [Mass ratio] 19.1 mg/mg 10-20 [facility] Basophil percentageOrdered B y: Sugey Simpson on 04-25-2024 Basophils/100 WBC (Bld) 0.5 % 0-1 [facility] Bilirubin, totalOrdered By: Sugey Simpson on 04-25-2024 Bilirubin [Mass/Vol] 0.24 mg/dL 0.00-1.[address] [facility] CBC W/Diff, Automatedon 04-15 Absolute Lymph 2.12 X10 3/uL Normal 0.83-4.51 [facility] Comment on above: Performed By: #### L 100.0100, L506.1001, L503.0106, L500.4050, L501.9985 #### [facility] [address] [place], [address] Absolute Neut 8.3 X10 3/uL High 2.0-7.7 [facility] Comment on above: Performed By: #### L 100.0100, L506.1001, L503.0106, L500.4050, L501.9985 #### [facility] [address] [place], [address] Basophils/100 WBC (Bld) 0.5 % Normal 0-1 [facility] Comment on above: Performed By: #### L 100.0100, L506.1001, L503.0106, L500.4050, L501.9985 #### [facility] [address] [place], [address] Eosinophils/100 WBC (Bld) 2.6 % Normal 0-5 [facility] Comment on above: Performed By: #### L 100.0100, L506.1001, L503.0106, L500.4050, L501.9985 #### [facility] [address] [place], [address] Erythrocyte distribution width (RBC) [Ratio] 13.5 % Normal 11.6-14.6 [facility] Comment on above: Performed By: #### L 100.0100, L506.1001, L503.0106, L500.4050, L501.9985 #### [facility] [address] [place], [address] Hematocrit (Bld) [Volume fraction] 38.6 % Normal 37-47 [facility] Comment on above: Performed By: #### L 100.0100, L506.1001, L503.0106, L500.4050, L501.9985 #### [facility] [address] [place], [address] Hemoglobin (Bld) [Mass/Vol] 12.7 g/dL Normal 12.0-15.0 [facility] Comment on above: Performed By: #### L 100.0100, L506.1001, L503.0106, L500.4050, L501.9985 #### [facility] [address] [place], [address] IG% 0.300 Normal 0.0-0.9 [facility] Comment on above: Result Comment: IG% - Immature Granulocytes (promyelocytes, myelocytes and metamyelocytes) > 1% indicates that a LEFT SHIFT is Present. Performed By: #### L 100.0100, L506.1001, L503.0106, L500.4050, L501.9985 #### [facility] [address] [place], [address] Lymphocytes/100 WBC (Bld) 18.7 % Low 19-41 [facility] Comment on above: Performed By: #### L 100.0100, L506.1001, L503.0106, L500.4050, L501.9985 #### [facility] [address] [place], [address] MCH (RBC) [Entitic mass] 29.4 pg Normal 27.0-32.0 [facility] Comment on above: Performed By: #### L 100.0100, L506.1001, L503.0106, L500.4050, L501.9985 #### [facility] [address] [place], [address] MCHC (RBC) [Mass/Vol] 32.9 g/dL Normal 32-36 [facility] Comment on above: Performed By: #### L 100.0100, L506.1001, L503.0106, L500.4050, L501.9985 #### [facility] [address] [place], [address] MCV (RBC) [Entitic vol] 89.4 fL Normal 81-99 [facility] Comment on above: Performed By: #### L 100.0100, L506.1001, L503.0106, L500.4050, L501.9985 #### [facility] [address] [place], [address] Monocytes/100 WBC (Bld) 5.0 % Normal 0-10 [facility] Comment on above: Performed By: #### L 100.0100, L506.1001, L503.0106, L500.4050, L501.9985 #### [facility] [address] [place], [address] Neutrophils/100 WBC (Bld) 72.9 % High 47-70 [facility] Comment on above: Performed By: #### L 100.0100, L506.1001, L503.0106, L500.4050, L501.9985 #### [facility] [address] [place], [address] Nucleated RBC (Bld) [#/Vol] 0 10*3/uL Normal 0-5 [facility] Comment on above: Performed By: #### L 100.0100, L506.1001, L503.0106, L500.4050, L501.9985 #### [facility] [address] [place], [address] Platelet mean volume (Bld) [Entitic vol] 10.8 fL Normal 6.2-12.0 [facility] Comment on above: Performed By: #### L 100.0100, L506.1001, L503.0106, L500.4050, L501.9985 #### [facility] [address] [place], [address] Platelets (Bld) [#/Vol] 259 10*3/uL Normal 150-450 [facility] Comment on above: Performed By: #### L 100.0100, L506.1001, L503.0106, L500.4050, L501.9985 #### [facility] [address] [place], [address] RBC (Bld) [#/Vol] 4.32 10*6/uL Normal 4.2-5.4 [facility] Comment on above: Performed By: #### L 100.0100, L506.1001, L503.0106, L500.4050, L501.9985 #### [facility] [address] [place], [address] RDW SD 44.4 fl High 35.1-43.9 [facility] Comment on above: Performed By: #### L 100.0100, L506.1001, L503.0106, L500.4050, L501.9985 #### [facility] [address] [place], [address] WBC (Bld) [#/Vol] 11.4 10*3/uL High 4.4-11.0 [facility] Comment on above: Performed By: #### L 100.0100, L506.1001, L503.0106, L500.4050, L501.9985 #### [facility] [address] [place], [address] Carbon dioxide, total [Moles /volume] in Central venous bloodOrdered By: Sugey Simpson on 04-25-2024 CO2 [Moles/Vol] 19.8 mmol/L Low 21.0-32.0 [facility] Chloride assayOrdered By: Yuly Simpson on 04-25-2024 Chloride [Moles/Vol] 104 mmol/L 98-[address] [facility] Comprehensive Metabolic Prof ilon 04-25-2024 Albumin [Mass/Vol] 4.3 g/dL Normal 3.4-4.8 [facility] Comment on above: Performed By: #### L 100.0100, L506.1001, L503.0106, L500.4050, L501.9985 #### [facility] [address] [place], [address] Albumin/Globulin [Mass ratio] 1.8 {ratio} Normal 0.9-2.4 [facility] Comment on above: Performed By: #### L 100.0100, L506.1001, L503.0106, L500.4050, L501.9985 #### [facility] [address] [place], [address] ALK PHOS 38 U/L Normal 35-104 [facility] Comment on above: Performed By: #### L 100.0100, L506.1001, L503.0106, L500.4050, L501.9985 #### [facility] [address] [place], [address] ALT [Catalytic activity/Vol] 12 U/L Normal <=34 [facility] Comment on above: Performed By: #### L 100.0100, L506.1001, L503.0106, L500.4050, L501.9985 #### [facility] [address] [place], [address] AST [Catalytic activity/Vol] 19 U/L Normal <=31 [facility] Comment on above: Performed By: #### L 100.0100, L506.1001, L503.0106, L500.4050, L501.9985 #### [facility] [address] [place], [address] Bilirubin [Mass/Vol] 0.24 mg/dL Normal 0.00-1.[address] [facility] Comment on above: Performed By: #### L 100.0100, L506.1001, L503.0106, L500.4050, L501.9985 #### [facility] [address] [place], [address] BUN/CRE 19.1 RATIO Normal 10-20 [facility] Comment on above: Performed By: #### L 100.0100, L506.1001, L503.0106, L500.4050, L501.9985 #### [facility] [address] [place], [address] Calcium [Mass/Vol] 9.5 mg/dL Normal 7.6-11.0 [facility] Comment on above: Performed By: #### L 100.0100, L506.1001, L503.0106, L500.4050, L501.9985 #### [facility] [address] [place], [address] Chloride [Moles/Vol] 104 mmol/L Normal 98-[address] [facility] Comment on above: Performed By: #### L 100.0100, L506.1001, L503.0106, L500.4050, L501.9985 #### [facility] [address] [place], [address] CO2 [Moles/Vol] 19.8 mmol/L Low 21.0-32.0 [facility] Comment on above: Performed By: #### L 100.0100, L506.1001, L503.0106, L500.4050, L501.9985 #### [facility] [address] [place], [address] Creatinine [Mass/Vol] 1.37 mg/dL High 0.70-1.20 [facility] Comment on above: Performed By: #### L 100.0100, L506.1001, L503.0106, L500.4050, L501.9985 #### [facility] [address] [place], [address] GAP 14 Normal 5-15 [facility] Comment on above: Performed By: #### L 100.0100, L506.1001, L503.0106, L500.4050, L501.9985 #### [facility] [address] [place], [address] GFR/1.73 sq M.predicted among non-blacks MDRD (S/P/Bld) [Vol rate/Area] 38 mL/min/{1.73_m2} Low >60 [facility] Comment on above: Result Comment: mL/m in/1.73m2 CKD-EPI Creatinine Equation (2020) Performed By: #### L 100.0100, L506.1001, L503.0106, L500.4050, L501.9985 #### [facility] [address] [place], [address] Globulin (S) [Mass/Vol] 2.4 g/dL Normal 2.2-4.2 [facility] Comment on above: Performed By: #### L 100.0100, L506.1001, L503.0106, L500.4050, L501.9985 #### [facility] [address] [place], [address] Glucose [Mass/Vol] 172 mg/dL High 70-99 [facility] Comment on above: Performed By: #### L 100.0100, L506.1001, L503.0106, L500.4050, L501.9985 #### [facility] [address] [place], [address] Potassium [Moles/Vol] 4.6 mmol/L Normal 3.3-5.1 [facility] Comment on above: Performed By: #### L 100.0100, L506.1001, L503.0106, L500.4050, L501.9985 #### [facility] [address] [place], [address] Sodium [Moles/Vol] 137 mmol/L Normal 133-145 [facility] Comment on above: Performed By: #### L 100.0100, L506.1001, L503.0106, L500.4050, L501.9985 #### [facility] [address] [place], [address] T PROT 6.6 g/dL Normal 5.9-8.4 [facility] Comment on above: Performed By: #### L 100.0100, L506.1001, L503.0106, L500.4050, L501.9985 #### [facility] [address] [place], [address] Urea nitrogen [Mass/Vol] 26 mg/dL High 4-19 [facility] Comment on above: Performed By: #### L 100.0100, L506.1001, L503.0106, L500.4050, L501.9985 #### [facility] [address] [place], [address] Eosinophil percentageOrdered By: Sugey Simpson on 04-25-2024 Eosinophils/100 WBC (Bld) 2.6 % 0-5 [facility] Erythrocyte distribution wid th ratioOrdered By: Sugey Simpson on 04-25-2024 Erythrocyte distribution width (RBC) [Ratio] 13.5 % 11.6-14.6 [facility] Erythrocyte distribution wid th standard deviationOrdered By: Sugey Simpson on 04-25-2024 Erythrocyte distribution width (RBC) [Entitic vol] 44.4 fL High 35.1-43.9 [facility] GFR/1.73 sq M.predicted khadijah g non-blacks MDRD (S/P/Bld) [Vol rate/Area]Ordered By: Sugey Simpson on 04-25-2024 Estimated GFR (MDRD) Non-Af Amer 38 Low >60 [facility] Comment on above: mL/min/1.73m2 CKD-EP I Creatinine Equation (2020) Hematocrit Auto (Bld) [Volum e fraction]Ordered By: Sugey Simpson on 04-25-2024 Hematocrit (Bld) [Volume fraction] 38.6 % 37-47 [facility] Hemoglobin A1con 04-25-2024 HbA1c (Bld) [Mass fraction] 6.3 % Normal <=5.6 [facility] Comment on above: Performed By: #### L 100.0100, L506.1001, L503.0106, L500.4050, L501.9985 #### [facility] [address] [place] [address], [address] Hemoglobin A1c percentageOrd ered By: Sugey Simpson on 04-25-2024 HbA1c (Bld) [Mass fraction] 6.3 % >5.7 [facility] Hemoglobin measurementOrdere d By: Sugey Simpson on 04-25-2024 Hemoglobin (Bld) [Mass/Vol] 12.7 g/dL 12.0-15.0 [facility] Immature granulocytes/100 WB C Auto (Bld)Ordered By: Sugey Simpson on 04-25-2024 Immature granulocytes/100 WBC (Bld) 0.300 % 0.0-0.9 [facility] Comment on above: IG% - Immature Granu locytes (promyelocytes, myelocytes and metamyelocytes) > 1% indicates that a LEFT SHIFT is Present. L503.0106on 04-25-2024 Cobalamin (Vitamin B12) [Mass/Vol] 821 pg/mL Normal 180-914 [facility] Comment on above: Result Comment: AMENDED REPORT 04/25/246 Vitamin B12 previously reported as: 768 pg/mL Performed By: #### L 503.0105, L501.9985, L502.0250, L100.0100, L500.4100, L500.4050 #### [facility] [address] [place], [address] L506.1001on 04-25-2024 Vitamin D 25-OH 39.0 ng/mL Normal 30-100 [facility] Comment on above: Result Comment: Luz Marina min D Status Deficiency: <20 ng/mL (50nmol/L) Insufficiency: 20-30 ng/mL (50-75 nmol/L) Sufficiency: 30-100 ng/mL (75-250 nmol/L) Toxicity: >100 ng/mL (>250 nmol/L) Performed By: #### L 100.0100, L506.1001, L503.0106, L500.4050, L501.9985 #### [facility] [address] [place], [address] Laboratory - Chemistry and C hemistry - challengeOrdered By: Sugey Simpson on 04-25-2024 AST [Catalytic activity/Vol] 19 U/L <32 [facility] Lymphocytes Auto (Unsp spec) [#/Vol]Ordered By: Sugey Simpson on 04-25-2024 Lymphocytes (Bld) [#/Vol] 2.12 10*3/uL 0.83-4.5 1 [facility] Lymphocytes/100 WBC Auto (Un sp spec)Ordered By: Sugey Simpson on 04-25-2024 Lymphocytes/100 WBC (Bld) 18.7 % Low 19-41 [facility] MCV (mean corpuscular volume ) determinationOrdered By: Sugey Simpson on 04-25-2024 MCV (RBC) [Entitic vol] 89.4 fL 81-99 [facility] Mean corpuscular hemoglobin (MCH) determinationOrdered By: Sugey Simpson on 04-25-2024 MCH (RBC) [Entitic mass] 29.4 pg 27.0-32.0 [facility] Mean corpuscular hemoglobin concentration (MCHC) determinationOrdered By: Sugey Simpson on 04-25-2024 MCHC (RBC) [Mass/Vol] 32.9 g/dL 32-36 [facility] Mean platelet volume determi nationOrdered By: Sugey Simpson on 04-25-2024 Platelet mean volume (Bld) [Entitic vol] 10.8 fL 6.2-12.0 [facility] Monocyte percentageOrdered B y: Sugey Simpson on 04-25-2024 Monocytes/100 WBC (Bld) 5.0 % 0-10 [facility] Neutrophil percentageOrdered By: Suegy Simpson on 04-25-2024 Neutrophils/100 WBC (Bld) 72.9 % High 47-70 [facility] Nucleated red blood cell per centageOrdered By: Sugey Simpson on 04-25-2024 Nucleated RBC/100 WBC (Bld) [Ratio] 0 % 0-5 [facility] Platelet countOrdered By: Yuly Simpson on 04-25-2024 Platelets (Bld) [#/Vol] 259 10*3/uL 150-450 [facility] Potassium (Unsp spec) [Mass/ Vol]Ordered By: Sugey Simpson on 04-25-2024 Potassium [Moles/Vol] 4.6 mmol/L 3.3-5.1 [facility] RBC Auto (Bld) [#/Vol]Ordere d By: Sugey Simpson on 04-25-2024 RBC (Bld) [#/Vol] 4.32 10*6/uL 4.2-5.4 [facility] Serum creatinine measurement (mass/volume)Ordered By: Sugey Simpson on 04-25-2024 Creatinine [Mass/Vol] 1.37 mg/dL High 0.70-1.20 [facility] Serum globulin measurementOr dered By: Sugey Simpson on 04-25-2024 Globulin (S) [Mass/Vol] 2.4 g/dL 2.2-4.2 [facility] Serum glucose measurement (m ass/volume)Ordered By: Sugey Simpson on 04-25-2024 Glucose [Mass/Vol] 172 mg/dL High 70-99 [facility] Serum or plasma alanine smith otransferase (ALT) measurementOrdered By: Sugey Simpson on 04-25-2024 ALT [Catalytic activity/Vol] 12 U/L <35 [facility] Serum or plasma albumin kimber urement (mass/volume)Ordered By: Sugey Simpson on 04-25-2024 Albumin [Mass/Vol] 4.3 g/dL 3.4-4.8 [facility] Serum or plasma albumin/glob ulin mass ratioOrdered By: Sugey Simpson on 04-25-2024 Albumin/Globulin [Mass ratio] 1.8 {ratio} 0.9-2.4 [facility] Serum or plasma alkaline marilia sphatase measurementOrdered By: Sugey Simpson on 04-25-2024 ALP [Catalytic activity/Vol] 38 U/L 35-104 [facility] Serum or plasma calcium kimber urement (mass/volume)Ordered By: Sugey Simpson on 04-25-2024 Calcium [Mass/Vol] 9.5 mg/dL 7.6-11.0 [facility] Serum or plasma urea nitroge n measurement (mass/volume)Ordered By: Sugey Simpson on 04-25-2024 Urea nitrogen [Mass/Vol] 26 mg/dL High 4-19 [facility] Sodium levelOrdered By: Sugey Simpson on 04-25-2024 Sodium [Moles/Vol] 137 mmol/L 133-145 [facility] Total proteinOrdered By: Lilli Simpson on 04-25-2024 Protein [Mass/Vol] 6.6 g/dL 5.9-8.4 [facility] Vitamin B12 ser/plasOrdered By: Sugey Simpson on 04-25-2024 Cobalamin (Vitamin B12) [Mass/Vol] 821 pg/mL 180-914 [facility] Comment on above: Previous reported re sult: 768 pg/mLEdited by: MELODY on 04/25/24:2152 AMENDED REPORT 04/25/242152 Vitamin B12 previously reported as: 768 pg/mL Vitamin D, 25-hydroxyOrdered By: Sugey Simpson on 04-25-2024 Vitamin D 25-Hydroxy 39.0 ng/mL 30-[address] [facility] Comment on above: Vitamin D StatusDefi ciency: <20 ng/mL (50nmol/L)Insufficiency: 20-30 ng/mL (50-75 nmol/L)Sufficiency: 30-100 ng/mL (75-250 nmol/L)Toxicity: >100 ng/mL (>250 nmol/L) White blood cell (WBC) count Ordered By: Sugey Simpson on 04-25-2024 WBC (Bld) [#/Vol] 11.4 10*3/uL High 4.4-11.0 [facility] Dexa Bone Density Studyon Dexa Bone Density Study [facility] Imaging Services [address] [place], [place] [address] Dexa Bone Density Study MR#: [id number] Acct: [id number] Name: GIANCARLO ANGULO Rep #: [id number] : 1940 F [id number] From: Blaine jacome MD PCP: Dr. Sugey Simpson DO Status: REG [facility] Study: Dexa Bone Density Study Date of Exam: 11/19/23 Exam# [id number] Ordering Dr: Sugey Simpson DO [id number] STUDY: DUAL ENERGY X-RAY ABSORPTIOMETRY / DXA REASON FOR EXAM: Female, 83 years old. 627.8Menopausal postmenopausalBONE DENSITY REASON FOR EXAM TECHNIQUE: Bone Mineral Density (BMD) measurements of lumbar spine and bilateral hips were obtained. COMPARISON: Comparison is made with prior study April 04, 2020. FINDINGS: Lumbar Spine (L1-L4): g/cm2 (0.790) / T-score (-2.3) / Z-score (0.4) Findings are suggestive of osteopenia with a high fracture risk. Left Femur Total: g/cm2 (0.611) / T-score (-2.7) / Z-score (-0.5) Left Femoral Neck: g/cm2 (0.484) / T-score (-3.3) / Z-score (-0.9) Right Femur Total: g/cm2 (0.573) / T-score (-3.0) / Z-score (-0.8) Right Femoral Neck: g/cm2 (0.499) / T-score (-3.2) / Z-score (-0.7) The T-Scores on the most recent prior examination were: Lumbar Spine (L1-L4): There has been worsening of bone density since the previous examination. Left Femur Total: which represents a worsening of 9.3%. Right Femur Total: which represents a worsening of 1.6%. BD/Dexa Bone Density Study IMPRESSION: The patient is considered osteoporotic as outlined below according to World Param Organization (WHO) criteria with a high fracture risk. There has been worsening of bone density since the previous examination. Reference Information: The T-score is the number of standard deviations above or below the standard which is normal for young adults at their peak bone mineral density. The World Health Organization (WHO) interprets the T-scores as follows: Above -1 Normal bone density Between -1 and -2.5 Osteopenia Equal to / or below -2.5 Osteoporosis As a practical clinical guideline, osteopenia may be graded as follows: Mild -1 through -1.5 Moderate -1.6 through -2.0 Severe -2.1 through -2.4 The Z-score is the number of standard deviations above or below age-matched controls. A Z-score of less than -1.5 would be considered abnormal. References: 1. NIH Osteoporosis and Related Bone Diseases www osteo.org 2. International [employer] www iscd.org 3. [employer] www nof.org Electronically Signed: Blaine Velasquez MD at 12:47 EDT , CC: Dr. Sugey Simpson DO Per Assessment Nurse: Signed Normal [facility] SCRN MAMM (CAD)W/SIMON BILATo n 11-19-2023 SCRN MAMM (CAD)W/SIMON BILAT [facility] Imaging Services [address] [place] [address] SCRN MAMM (CAD)W/SIMON BILAT MR#: [id number] Acct: [id number] Name: GIANCARLO ANGULO Rep #: [id number] : [id number] F 83 From: Blaine jacome MD PCP: Dr. Sugey Simpson DO Status: REG CLI Study: SCRN MAMM (CAD)W/SIMON BILAT Date of Exam: 06/08 Exam# [id number] Ordering Dr: Sugey Simpson DO -[id number] MAMMOGRAPHY - BILATERAL SCREENING REASON FOR EXAM: Female, 83 years old. Routine annual screening examination. PERTINENT HISTORY: Non-contributory. TECHNIQUE: Digital bilateral breast simon (3D mammographic acquisition) in the CC and MLO projections. 2-D mediolateral oblique (MLO) and craniocaudad (CC) views of both breasts were obtained. CAD: Full Field Digital Mammography with Computer Added Detection was performed. COMPARISON: Comparison is made with prior study dated August 31, 2022 and August 28, 2021. FINDINGS: Breast Composition: The breasts are almost entirely fatty. There are no dominant masses or suspicious calcifications. Stable 5 mm well-defined nodule in the upper lateral aspect of the left breast suggestive of a small lymph node. No other significant abnormalities are identified. There has been no significant change since the prior study. BI/SCRN MAMM (CAD)W/SIMON BILAT IMPRESSION: Stable bilateral screening mammogram. Yearly follow-up mammogram recommended. (A) ASSESSMENT CATEGORY: BIRADS Category 2: Benign. A letter regarding these results will be sent to the patient by the facility within 30 days. Approximately 10% of breast cancers are not detected by mammography. A normal mammogram should not delay biopsy of a clinically suspicious abnormality. [id number] Electronically Signed: Blaine Velasquez MD at 13:50 EDT , CC: Dr. Sugey Simpson, DO Per Assessment Nurse: Signed Normal [facility] CBC W/Diff, Automatedon 10-0 Absolute Lymph 1.97 X10 3/uL Normal 0.83-4.51 [facility] Comment on above: Performed By: #### L 503.0105, L501.9985, L502.0250, L100.0100, L500.4100, L500.4050 #### [facility] [address] [place], [address] Absolute Neut 6.2 X10 3/uL Normal 2.0-7.7 [facility] Comment on above: Performed By: #### L 503.0105, L501.9985, L502.0250, L100.0100, L500.4100, L500.4050 #### [facility] [address] [place], [address] Basophils/100 WBC (Bld) 0.7 % Normal 0-1 [facility] Comment on above: Performed By: #### L 503.0105, L501.9985, L502.0250, L100.0100, L500.4100, L500.4050 #### [facility] [address] [place], [address] Eosinophils/100 WBC (Bld) 3.0 % Normal 0-5 [facility] Comment on above: Performed By: #### L 503.0105, L501.9985, L502.0250, L100.0100, L500.4100, L500.4050 #### [facility] [address] [place], [address] Erythrocyte distribution width (RBC) [Ratio] 13.2 % Normal 11.6-14.6 [facility] Comment on above: Performed By: #### L 503.0105, L501.9985, L502.0250, L100.0100, L500.4100, L500.4050 #### [facility] [address] [place], [address] Hematocrit (Bld) [Volume fraction] 37.9 % Normal 37-47 [facility] Comment on above: Performed By: #### L 503.0105, L501.9985, L502.0250, L100.0100, L500.4100, L500.4050 #### [facility] [address] [place], [address] Hemoglobin (Bld) [Mass/Vol] 12.2 g/dL Normal 12.0-15.0 [facility] Comment on above: Performed By: #### L 503.0105, L501.9985, L502.0250, L100.0100, L500.4100, L500.4050 #### [facility] [address] [place], [address] IG% 0.400 Normal 0.0-0.9 [facility] Comment on above: Result Comment: IG% - Immature Granulocytes (promyelocytes, myelocytes and metamyelocytes) > 1% indicates that a LEFT SHIFT is Present. Performed By: #### L 503.0105, L501.9985, L502.0250, L100.0100, L500.4100, L500.4050 #### [facility] [address] [place], [address] Lymphocytes/100 WBC (Bld) 21.8 % Normal 19-41 [facility] Comment on above: Performed By: #### L 503.0105, L501.9985, L502.0250, L100.0100, L500.4100, L500.4050 #### [facility] [address] [place], [address] MCH (RBC) [Entitic mass] 28.9 pg Normal 27.0-32.0 [facility] Comment on above: Performed By: #### L 503.0105, L501.9985, L502.0250, L100.0100, L500.4100, L500.4050 #### [facility] [address] [place], [address] MCHC (RBC) [Mass/Vol] 32.2 g/dL Normal 32-36 [facility] Comment on above: Performed By: #### L 503.0105, L501.9985, L502.0250, L100.0100, L500.4100, L500.4050 #### [facility] [address] [place], [address] MCV (RBC) [Entitic vol] 89.8 fL Normal 81-99 [facility] Comment on above: Performed By: #### L 503.0105, L501.9985, L502.0250, L100.0100, L500.4100, L500.4050 #### [facility] [address] [place], [address] Monocytes/100 WBC (Bld) 5.5 % Normal 0-10 [facility] Comment on above: Performed By: #### L 503.0105, L501.9985, L502.0250, L100.0100, L500.4100, L500.4050 #### [facility] [address] [place], [address] Neutrophils/100 WBC (Bld) 68.6 % Normal 47-70 [facility] Comment on above: Performed By: #### L 503.0105, L501.9985, L502.0250, L100.0100, L500.4100, L500.4050 #### [facility] [address] [place], [address] Nucleated RBC (Bld) [#/Vol] 0 10*3/uL Normal 0-5 [facility] Comment on above: Performed By: #### L 503.0105, L501.9985, L502.0250, L100.0100, L500.4100, L500.4050 #### [facility] [address] [place], [address] Platelet mean volume (Bld) [Entitic vol] 10.5 fL Normal 6.2-12.0 [facility] Comment on above: Performed By: #### L 503.0105, L501.9985, L502.0250, L100.0100, L500.4100, L500.4050 #### [facility] [address] [place], [address] Platelets (Bld) [#/Vol] 232 10*3/uL Normal 150-450 [facility] Comment on above: Performed By: #### L 503.0105, L501.9985, L502.0250, L100.0100, L500.4100, L500.4050 #### [facility] [address] [place], [address] RBC (Bld) [#/Vol] 4.22 10*6/uL Normal 4.2-5.4 [facility] Comment on above: Performed By: #### L 503.0105, L501.9985, L502.0250, L100.0100, L500.4100, L500.4050 #### [facility] [address] [place], [address] RDW SD 43.3 fl Normal 35.1-43.9 [facility] Comment on above: Performed By: #### L 503.0105, L501.9985, L502.0250, L100.0100, L500.4100, L500.4050 #### [facility] [address] [place], [address] WBC (Bld) [#/Vol] 9.1 10*3/uL Normal 4.4-11.0 [facility] Comment on above: Performed By: #### L 503.0105, L501.9985, L502.0250, L100.0100, L500.4100, L500.4050 #### [facility] [address] [place], [address] Comprehensive Metabolic [facility] 11-16-2023 Albumin [Mass/Vol] 3.7 g/dL Normal 3.2-5.0 [facility] Comment on above: Performed By: #### L 503.0105, L501.9985, L502.0250, L100.0100, L500.4100, L500.4050 #### [facility] [address] [place], [address] Albumin/Globulin [Mass ratio] 1.3 {ratio} Normal 0.9-2.4 [facility] Comment on above: Performed By: #### L 503.0105, L501.9985, L502.0250, L100.0100, L500.4100, L500.4050 #### [facility] [address] [place], [address] ALK P 59 U/L Normal 45-117 [facility] Comment on above: Performed By: #### L 503.0105, L501.9985, L502.0250, L100.0100, L500.4100, L500.4050 #### [facility] [address] [place], [address] ALT [Catalytic activity/Vol] 14 U/L Normal 13-56 [facility] Comment on above: Performed By: #### L 503.0105, L501.9985, L502.0250, L100.0100, L500.4100, L500.4050 #### [facility] [address] [place], [address] AST [Catalytic activity/Vol] 12 U/L Low 15-37 [facility] Comment on above: Performed By: #### L 503.0105, L501.9985, L502.0250, L100.0100, L500.4100, L500.4050 #### [facility] [address] [place], [address] Bilirubin [Mass/Vol] 0.50 mg/dL Normal 0.20-1.[address] [facility] Comment on above: Result Comment: For patients on eltrombopag therapy, use of Dimension [place] TBIL is not recommended. Performed By: #### L 503.0105, L501.9985, L502.0250, L100.0100, L500.4100, L500.4050 #### [facility] [address] [place], [address] BUN/CRE 20.1 RATIO High 10-20 [facility] Comment on above: Performed By: #### L 503.0105, L501.9985, L502.0250, L100.0100, L500.4100, L500.4050 #### [facility] [address] [place], [address] CA,Total 9.8 mg/dL Normal 8.5-10.1 [facility] Comment on above: Performed By: #### L 503.0105, L501.9985, L502.0250, L100.0100, L500.4100, L500.4050 #### [facility] [address] [place], [address] Chloride [Moles/Vol] 110 mmol/L High 98-[address] [facility] Comment on above: Performed By: #### L 503.0105, L501.9985, L502.0250, L100.0100, L500.4100, L500.4050 #### [facility] [address] [place], [address] CO2 [Moles/Vol] 24.0 mmol/L Normal 21.0-32.0 [facility] Comment on above: Performed By: #### L 503.0105, L501.9985, L502.0250, L100.0100, L500.4100, L500.4050 #### [facility] [address] [place], [address] Creatinine [Mass/Vol] 1.39 mg/dL High 0.55-1.02 [facility] Comment on above: Result Comment: The validity of the calculated GFR GFRAA in patients over 70 years has not been determined. Clinical correlation is essential. Performed By: #### L 503.0105, L501.9985, L502.0250, L100.0100, L500.4100, L500.4050 #### [facility] [address] [place], [address] EST GFR - AA 47 mL/min Low >60 [facility] Comment on above: Result Comment: Afri can Congolese GFR Calc Performed By: #### L 503.0105, L501.9985, L502.0250, L100.0100, L500.4100, L500.4050 #### [facility] [address] [place], [address] GAP 5 Normal 5-15 [facility] Comment on above: Performed By: #### L 503.0105, L501.9985, L502.0250, L100.0100, L500.4100, L500.4050 #### [facility] [address] [place], [address] GFR/1.73 sq M.predicted among non-blacks MDRD (S/P/Bld) [Vol rate/Area] 39 mL/min/{1.73_m2} Low >60 [facility] Comment on above: Result Comment: Non- GFR Calc Performed By: #### L 503.0105, L501.9985, L502.0250, L100.0100, L500.4100, L500.4050 #### [facility] [address] [place], [address] Globulin (S) [Mass/Vol] 2.9 g/dL Normal 2.2-4.2 [facility] Comment on above: Performed By: #### L 503.0105, L501.9985, L502.0250, L100.0100, L500.4100, L500.4050 #### [facility] [address] [place], [address] Glucose [Mass/Vol] 134 mg/dL High 74-106 [facility] Comment on above: Result Comment: Fast ing Glucose result greater than or equal to 126 mg/dL suggests DIABETES MELLITUS per A.D.A. criteria. Performed By: #### L 503.0105, L501.9985, L502.0250, L100.0100, L500.4100, L500.4050 #### [facility] [address] [place], [address] Potassium [Moles/Vol] 4.8 mmol/L Normal 3.5-5.1 [facility] Comment on above: Performed By: #### L 503.0105, L501.9985, L502.0250, L100.0100, L500.4100, L500.4050 #### [facility] [address] [place], [address] Sodium [Moles/Vol] 139 mmol/L Normal 136-145 [facility] Comment on above: Performed By: #### L 503.0105, L501.9985, L502.0250, L100.0100, L500.4100, L500.4050 #### [facility] [address] [place], [address] T PROT 6.6 g/dL Normal 6.4-8.2 [facility] Comment on above: Performed By: #### L 503.0105, L501.9985, L502.0250, L100.0100, L500.4100, L500.4050 #### [facility] [address] [place], [address] Urea nitrogen [Mass/Vol] 28 mg/dL High 7-18 [facility] Comment on above: Performed By: #### L 503.0105, L501.9985, L502.0250, L100.0100, L500.4100, L500.4050 #### [facility] [address] [place], [address] Hemoglobin A1con 11-16-2023 HbA1c (Bld) [Mass fraction] 6.0 % High 3.8-5.6 [facility] Comment on above: Result Comment: Norm al < 5.7 % Prediabetic 5.7 - 6.4 % Diabetic >or= 6.5 % Please note range changes. Performed By: #### L 503.0105, L501.9985, L502.0250, L100.0100, L500.4100, L500.4050 #### [facility] [address] [place], [address] Lipid Profileon 11-16-2023 Cholesterol [Mass/Vol] 141 mg/dL Normal 200 [facility] Comment on above: Result Comment: <200 mg/dL Desirable 200-240 mg/dL Borderline >240 mg/dL High Risk Performed By: #### L 503.0105, L501.9985, L502.0250, L100.0100, L500.4100, L500.4050 #### [facility] [address] [place], [address] Cholesterol in HDL [Mass/Vol] 78 mg/dL Normal [facility] Comment on above: Result Comment: The drugs N-Acetylcysteine and Metamizole may falsely depress this assay. Reference Range HDL <40 mg/dL Low HDL Cholesterol HDL >or= 60 mg/dL High HDL Cholesterol Performed By: #### L 503.0105, L501.9985, L502.0250, L100.0100, L500.4100, L500.4050 #### [facility] [address] [place], [address] Cholesterol in LDL [Mass/Vol] 39 mg/dL Normal 0-130 [facility] Comment on above: Performed By: #### L 503.0105, L501.9985, L502.0250, L100.0100, L500.4100, L500.4050 #### [facility] [address] [place], [address] Cholesterol in VLDL [Mass/Vol] 24 mg/dL Normal 5-40 [facility] Comment on above: Performed By: #### L 503.0105, L501.9985, L502.0250, L100.0100, L500.4100, L500.4050 #### [facility] [address] [place], [address] Triglyceride [Mass/Vol] 122 mg/dL Normal [facility] Comment on above: Result Comment: The drugs N-Acetylcysteine and Metamizole may falsely depress this assay. Serum Triglycerides Reference Interval Normal <150 mg/dL Borderline high 150 - 199 mg/dL High 200 - 499 mg/dL Very High > or = 500 mg/dL Performed By: #### L 503.0105, L501.9985, L502.0250, L100.0100, L500.4100, L500.4050 #### [facility] [address] [place], [address] Microalb:Creat Ratio,Random URon 11-16-2023 Creatinine [Mass/Vol] 54.40 mg/dL Normal NO RANGE EST. [facility] Comment on above: Performed By: #### L 503.0105, L501.9985, L502.0250, L100.0100, L500.4100, L500.4050 #### [facility] [address] [place], [address] MALB:CRE 50.9 mg/g CRE High <30 mg/g CRE [facility] Comment on above: Performed By: #### L 503.0105, L501.9985, L502.0250, L100.0100, L500.4100, L500.4050 #### [facility] [address] [place], [address] MICROALBUMIN,UR 27.7 mg/L Normal NO RANGE EST. [facility] Comment on above: Performed By: #### L 503.0105, L501.9985, L502.0250, L100.0100, L500.4100, L500.4050 #### [facility] [address] [place], [address] Vitamin B12on 11-16-2023 Cobalamin (Vitamin B12) [Mass/Vol] 1048 pg/mL High 211-911 [facility] Comment on above: Performed By: #### L 503.0105, L501.9985, L502.0250, L100.0100, L500.4100, L500.4050 #### [facility] [address] [place], [address] Absolute lymphocyte countOrd ered By: Sugey Simpson on 04-19-2023 Lymphocytes Auto (Unsp spec) [#/Vol] 2.24 10*3/uL 0.83-4.51 [facility] Automated lymphocyte count a s percentage of total leukocytesOrdered By: Sugey Simpson on 04-19-2023 Lymphocytes/100 WBC Auto (Unsp spec) 24.2 % 19-41 [facility] Basophil percentageOrdered B y: Sugey Simpson on 04-19-2023 Basophils/100 WBC (Bld) 0.5 % 0-1 [facility] Bilirubin [Mass/Vol] 0.50 mg/dL 0.20-1.[address] [facility] Comment on above: For patients on eltr ombopag therapy, use of Dimension [place] TBIL is not recommended. Chloride [Moles/Vol] 108 mmol/L 98-[address] [facility] Eosinophils/100 WBC (Bld) 2.2 % 0-5 [facility] Glucose [Mass/Vol] 103 mg/dL 74-106 [facility] Comment on above: Fasting Glucose resu lt from 100 to 125 mg/dL suggests IMPAIRED HOMEOSTASIS per A.D.A. criteria. Hemoglobin (Bld) [Mass/Vol] 12.7 g/dL 12.0-15.0 [facility] LDH [Catalytic activity/Vol] 196 U/L 84-246 [facility] Monocytes/100 WBC (Bld) 6.1 % 0-10 [facility] Neutrophils (Bld) [#/Vol] 6.2 10*3/uL 2.0-7.7 [facility] Neutrophils/100 WBC (Bld) 66.8 % 47-70 [facility] Potassium [Moles/Vol] 5.1 mmol/L 3.5-5.1 [facility] Protein [Mass/Vol] 6.9 g/dL 6.4-8.2 [facility] Sodium [Moles/Vol] 137 mmol/L 136-145 [facility] WBC (Bld) [#/Vol] 9.3 10*3/uL 4.4-11.0 [facility] Determination of erythrocyte mean corpuscular volume (MCV)Ordered By: Sugey Simpson on 04-19-2023 MCV (RBC) [Entitic vol] 92.3 fL 81-99 [facility] Erythrocyte distribution wid th ratioOrdered By: Sugey Simpson on 04-19-2023 Erythrocyte distribution width (RBC) [Ratio] 13.5 % 11.6-14.6 [facility] Erythrocyte distribution wid th standard deviationOrdered By: Sugey Simpson on 04-19-2023 Erythrocyte distribution width (RBC) [Entitic vol] 46.0 fL 35.1-43.9 [facility] Erythrocyte sedimentation ra teOrdered By: Sugey Simpson on 04-19-2023 ESR (Bld) [Velocity] mm/h 0-[address] [facility] Hematocrit Auto (Bld) [Volum e fraction]Ordered By: Sugey Simpson on 04-19-2023 Hematocrit (Bld) [Volume fraction] 38.6 % 37-47 [facility] Immature granulocytes/100 WB C Auto (Bld)Ordered By: Sugey Simpson on 04-19-2023 Immature granulocytes/100 WBC (Bld) 0.200 % 0.0-0.9 [facility] Comment on above: IG% - Immature Granu locytes (promyelocytes, myelocytes and metamyelocytes) > 1% indicates that a LEFT SHIFT is Present. Laboratory - Chemistry and C hemistry - challengeOrdered By: Sugey Simpson on 04-19-2023 Albumin/Globulin [Mass ratio] 1.3 {ratio} 0.9-2.4 [facility] ALP [Catalytic activity/Vol] 62 U/L 45-117 [facility] ALT [Catalytic activity/Vol] 17 U/L 13-56 [facility] CO2 [Moles/Vol] 23.0 mmol/L 21.0-32.0 [facility] Cobalamin (Vitamin B12) [Mass/Vol] 340 pg/mL 211-911 [facility] Globulin (S) [Mass/Vol] 3.0 g/dL 2.2-4.2 [facility] Urea nitrogen/Creatinine [Mass ratio] 18.3 mg/mg 10-20 [facility] - Hematology and Cell countsOrdered By: Sugey Simpson on 04-19-2023 MCH (RBC) [Entitic mass] 30.4 pg 27.0-32.0 [facility] MCHC (RBC) [Mass/Vol] 32.9 g/dL 32-36 [facility] Nucleated RBC/100 WBC (Bld) [Ratio] 0 % 0-5 [facility] Platelet mean volume (Bld) [Entitic vol] 10.5 fL 6.2-12.0 [facility] Platelets (Bld) [#/Vol] 222 10*3/uL 150-450 [facility] No Panel InformationOrdered By: Sugey Simpson on 04-19-2023 C-Reactive Protein Extended Range < 2.90 mg/L 0.0-3.0 [facility] Comment on above: C-Reactive Protein ( CRP) provides useful information for thediagnosis, therapy and monitoring of inflammatory processesand associated diseases. For the evaluation of Relative Riskfor Cardiovascular Disease, a High Sensitivity CRP (HSCRP)should be ordered. Estimated GFR (MDRD) Amer 46 mL/min >60 [facility] Comment on above: GFR Calc Estimated GFR (MDRD) Non-Af Amer 38 mL/min >60 [facility] Comment on above: Non- GFR Calc Free Triiodothyronine (T3) pg/dL 4.0 pg/mL 2.18-3.98 [facility] RBC Auto (Bld) [#/Vol]Ordere d By: Sugey Simpson on 04-19-2023 RBC (Bld) [#/Vol] 4.18 10*6/uL 4.2-5.4 [facility] [place] or plasma calcium kimber urement (mass/volume)Ordered By: Sugey Simpson on 04-19-2023 Calcium [Mass/Vol] 10.1 mg/dL 8.5-10.1 [facility] Serum or plasma creatinine m easurement (mass/volume)Ordered By: Sugey Simpson on 04-19-2023 Creatinine [Mass/Vol] 1.42 mg/dL 0.55-1.02 [facility] Comment on above: The validity of the calculated GFR & GFRAA in patients over 70 years has not been determined. Clinical correlation is essential. Serum or plasma thyroid stim ulating hormone (TSH) measurement (units/volume)Ordered By: Sugey Simpson on 04-19-2023 TSH Qn 2.76 uIU/mL 0.358-3.74 [facility] Serum or plasma urea nitroge n measurement (mass/volume)Ordered By: Sugey Simpson on 04-19-2023 Urea nitrogen [Mass/Vol] 26 mg/dL 7-18 [facility] Thin prep Papanicolaou smear with manual screeningOrdered By: Sugey Simpson on 04-19-2023 Thin prep Papanicolaou smear with manual screening 3.9 g/dL 3.2-5.0 [facility] Thin prep Papanicolaou smear with manual screening 14 U/L 15-37 [facility] Thin prep Papanicolaou smear with manual screening 6 5-15 [facility] Thin prep Papanicolaou smear with manual screening 1.00 ng/dL 0.76-1.46 [facility] Absolute lymphocyte countOrd ered By: Sugey Simpson on 08-28-2022 Lymphocytes Auto (Unsp spec) [#/Vol] 1.49 10*3/uL 0.83-4.51 [facility] Basophil percentageOrdered B y: Sugey Simpson on 08-28-2022 Basophils/100 WBC (Bld) 0.6 % 0-1 [facility] Bilirubin [Mass/Vol] 0.40 mg/dL 0.20-1.[address] [facility] Comment on above: For patients on eltr ombopag therapy, use of Dimension [place] TBIL is not recommended. Chloride [Moles/Vol] 110 mmol/L 98-[address] [facility] Cholesterol [Mass/Vol] 136 mg/dL <200 [facility] Comment on above: <200 mg/dL Desirable 200-240 mg/dL Borderline >240 mg/dL High Risk Eosinophils/100 WBC (Bld) 2.1 % 0-5 [facility] Glucose [Mass/Vol] 137 mg/dL 74-106 [facility] Comment on above: Fasting Glucose resu lt greater than or equal to 126 mg/dL suggests DIABETES MELLITUS per A.D.A. criteria. Neutrophils (Bld) [#/Vol] 6.0 10*3/uL 2.0-7.7 [facility] Neutrophils/100 WBC (Bld) 71.1 % 47-70 [facility] Potassium [Moles/Vol] 5.0 mmol/L 3.5-5.1 [facility] Protein [Mass/Vol] 6.8 g/dL 6.4-8.2 [facility] Sodium [Moles/Vol] 140 mmol/L 136-145 [facility] Triglyceride [Mass/Vol] 152 mg/dL <199 [facility] Comment on above: The drugs N-Acetylcy steine and Metamizole may falsely depress this assay.Serum Triglycerides Reference Interval Normal <150 mg/dL Borderline high 150 - 199 mg/dL High 200 - 499 mg/dL Very High > or = 500 mg/dL WBC (Bld) [#/Vol] 8.4 10*3/uL 4.4-11.0 [facility] Blood erythrocytes count (nu mber/volume)Ordered By: Sugey Simpson on 08-28-2022 RBC (Bld) [#/Vol] 4.16 10*6/uL 4.2-5.4 [facility] Blood hemoglobin measurement (mass/volume)Ordered By: Sugey Simpson on 08-28-2022 Hemoglobin (Bld) [Mass/Vol] 12.4 g/dL 12.0-15.0 [facility] Blood lymphocytes/100 leukoc ytesOrdered By: Sugey Simpson on 08-28-2022 Lymphocytes/100 WBC (Bld) 17.7 % 19-41 [facility] Blood monocytes/100 leukocyt esOrdered By: Sugey Simpson on 08-28-2022 Monocytes/100 WBC (Bld) 8.1 % 0-10 [facility] Blood platelet mean volumeOr dered By: Sugey Simpson on 08-28-2022 Platelet mean volume (Bld) [Entitic vol] 10.2 fL 6.2-12.0 [facility] Determination of erythrocyte mean corpuscular volume (MCV)Ordered By: Sugey Simpson on 08-28-2022 MCV (RBC) [Entitic vol] 98.6 fL 81-99 [facility] Hematocrit Auto (Bld) [Volum e fraction]Ordered By: Sugey Simpson on 08-28-2022 Hematocrit (Bld) [Volume fraction] 41.0 % 37-47 [facility] Laboratory - Chemistry and C hemistry - challengeOrdered By: Sugey Simpson on 08-28-2022 ALP [Catalytic activity/Vol] 57 U/L 45-117 [facility] ALT [Catalytic activity/Vol] 24 U/L 13-56 [facility] CO2 [Moles/Vol] 25.0 mmol/L 21.0-32.0 [facility] Free T4 [Mass/Vol] 0.95 ng/dL 0.76-1.46 [facility] Globulin (S) [Mass/Vol] 3.3 g/dL 2.2-4.2 [facility] Urea nitrogen/Creatinine [Mass ratio] 18.0 mg/mg 10-20 [facility] - Hematology and Cell countsOrdered By: Sugey Simpson on 08-28-2022 Erythrocyte distribution width (RBC) [Entitic vol] 48.6 fL 35.1-43.9 [facility] Erythrocyte distribution width (RBC) [Ratio] 13.4 % 11.6-14.6 [facility] Immature granulocytes/100 WBC (Bld) 0.400 % 0.0-0.9 [facility] Comment on above: IG% - Immature Granu locytes (promyelocytes, myelocytes and metamyelocytes) > 1% indicates that a LEFT SHIFT is Present. MCH (RBC) [Entitic mass] 29.8 pg 27.0-32.0 [facility] Nucleated RBC/100 WBC (Bld) [Ratio] 0 % 0-5 [facility] MCHC Auto (RBC) [Mass/Vol]Or dered By: Sugey Simpson on 08-28-2022 MCHC (RBC) [Mass/Vol] 30.2 g/dL 32-36 [facility] No Panel InformationOrdered By: Sugey Simpson on 08-28-2022 Estimated GFR (MDRD) Amer 54 mL/min >60 [facility] Comment on above: GFR Calc Estimated GFR (MDRD) Non-Af Amer 45 mL/min >60 [facility] Comment on above: Non- GFR Calc Free Triiodothyronine (T3) pg/dL 2.7 pg/mL 2.18-3.98 [facility] Thyroid Stimulating Hormone (TSH) 2.88 uIU/mL 0.358-3.74 [facility] Total Triiodothyronine 1.02 ng/mL 0.6-1.81 [facility] Platelets bldOrdered By: Lilli Simpson on 08-28-2022 Platelets (Bld) [#/Vol] 187 10*3/uL 150-450 [facility] Serum or plasma albumin kimber urement (mass/volume)Ordered By: Sugey Simpson on 08-28-2022 Albumin [Mass/Vol] 3.5 g/dL 3.2-5.0 [facility] Serum or plasma albumin/glob ulin mass ratioOrdered By: Sugey Simpson on 08-28-2022 Albumin/Globulin [Mass ratio] 1.1 {ratio} 0.9-2.4 [facility] Serum or plasma calcium kimber urement (mass/volume)Ordered By: Sugey Simpson on 08-28-2022 Calcium [Mass/Vol] 9.6 mg/dL 8.5-10.1 [facility] Serum or plasma cholesterol in HDL measurement (mass/volume)Ordered By: Sugey Simpson on 08-28-2022 Cholesterol in HDL [Mass/Vol] 65 mg/dL >40 [facility] Comment on above: The drugs N-Acetylcy steine and Metamizole may falsely depress this assay. Reference Range HDL <40 mg/dL Low HDL Cholesterol HDL >or= 60 mg/dL High HDL Cholesterol Serum or plasma cholesterol in VLDL measurement (mass/volume)Ordered By: Sugey Simpson on 08-28-2022 Cholesterol in VLDL [Mass/Vol] 30 mg/dL 5-40 [facility] Serum or plasma creatinine m easurement (mass/volume)Ordered By: Sugey Simpson on 08-28-2022 Creatinine [Mass/Vol] 1.22 mg/dL 0.55-1.02 [facility] Comment on above: The validity of the calculated GFR & GFRAA in patients over 70 years has not been determined. Clinical correlation is essential. Serum or plasma low density lipoprotein (LDL) cholesterol measurement (mass/volume)Ordered By: Sugey Simpson on 08-28-2022 Cholesterol in LDL [Mass/Vol] 41 mg/dL 0-130 [facility] Serum or plasma urea nitroge n measurement (mass/volume)Ordered By: Sugey Simpson on 08-28-2022 Urea nitrogen [Mass/Vol] 22 mg/dL 7-18 [facility] Thin prep Papanicolaou smear with manual screeningOrdered By: Sugey Simpson on 08-28-2022 Thin prep Papanicolaou smear with manual screening 27 U/L 15-37 [facility] Thin prep Papanicolaou smear with manual screening 5 5-15 [facility] COVID-19 virus antigen assay Ordered By: Dr. Simpson on 05-19-2022 SARS-CoV-2 (COVID-19) Ag IA.rapid Ql (Resp) Detected Not Detect [facility] Comment on above: Normal Reference Ran ge: Not DetectedMethod:(RT-PCR) real-time reverse transcriptase PCRLuminex restOpolis Instrument*The Food and Drug Administration (FDA) has issued an Emergency Use Authorization (EAU) for the SVEN SARS-CoV-2 Assay for the rapid detection of the virus that causes COVID-19. This test has been validated, but the FDAs independent review of this validation is pending.*Negative results do not preclude infection and should not be used as the sole basis for treatment or patient management. Optimum specimen types and timing for peak viral levels during infections caused by SARS-CoV-2 have not been determined. Collection of multiple specimens from the same patient may be necessary to detect the virus. The possibility of a false negative result should be considered if the patient has clinical presentation or has had recent exposure. Absolute lymphocyte counton 08-15-2021 Lymphocytes Auto (Unsp spec) [#/Vol] 1.84 10*3/uL 0.83-4.51 [facility] Work Phone: Basophil percentageon 2021 Basophils/100 WBC (Bld) 0.5 % 0-1 [facility] Work Phone: Bilirubin [Mass/Vol] 0.30 mg/dL 0.20-1.[address] [facility] Work Phone: Comment on above: For patients on eltr ombopag therapy, use of Dimension [place] TBIL is not recommended. Chloride [Moles/Vol] 106 mmol/L 98-[address] [facility] Work Phone: Eosinophils/100 WBC (Bld) 3.0 % 0-5 [facility] Work Phone: Glucose [Mass/Vol] 246 mg/dL 74-106 [facility] Work Phone: Comment on above: Glucose result great er than or equal to 200 mg/dLsuggests DIABETES MELLITUS per A.D.A. criteria. Neutrophils (Bld) [#/Vol] 5.4 10*3/uL 2.0-7.7 [facility] Work Phone: Neutrophils/100 WBC (Bld) 66.6 % 47-70 [facility] Work Phone: Potassium [Moles/Vol] 4.5 mmol/L 3.5-5.1 [facility] Work Phone: Protein [Mass/Vol] 6.6 g/dL 6.4-8.2 [facility] Work Phone: Sodium [Moles/Vol] 137 mmol/L 136-145 [facility] Work Phone: WBC (Bld) [#/Vol] 8.1 10*3/uL 4.4-11.0 [facility] Work Phone: Blood erythrocytes count (nu mber/volume)on 08-15-2021 RBC (Bld) [#/Vol] 4.11 10*6/uL 4.2-5.4 [facility]: Blood hemoglobin measurement (mass/volume)on 08-15-2021 Hemoglobin (Bld) [Mass/Vol] 12.3 g/dL 12.0-15.0 [facility] Work Phone: Blood lymphocytes/100 leukoc yteson 08-15-2021 Lymphocytes/100 WBC (Bld) 22.6 % 19-41 [facility] Work Phone: Blood monocytes/100 leukocyt eson 08-15-2021 Monocytes/100 WBC (Bld) 6.9 % 0-10 [facility] Work Phone: Blood platelet mean volumeon 08-15-2021 Platelet mean volume (Bld) [Entitic vol] 10.4 fL 6.2-12.0 [facility] Work Phone: Determination of erythrocyte mean corpuscular volume (MCV)on 08-15-2021 MCV (RBC) [Entitic vol] 90.3 fL 81-99 [facility] Work Phone: Hematocrit Auto (Bld) [Volum e fraction]on 08-15-2021 Hematocrit (Bld) [Volume fraction] 37.1 % 37-47 [facility] Work Phone: Laboratory - Chemistry and C hemistry - challengeon 08-15-2021 ALP [Catalytic activity/Vol] 56 U/L 45-117 [facility] Work Phone: ALT [Catalytic activity/Vol] 19 U/L 13-56 [facility] Work Phone: CO2 [Moles/Vol] 23.0 mmol/L 21.0-32.0 [facility] Work Phone: Free T4 [Mass/Vol] 0.95 ng/dL 0.76-1.46 [facility] Work Phone: Globulin (S) [Mass/Vol] 3.1 g/dL 2.2-4.2 [facility] Work Phone: Urea nitrogen/Creatinine [Mass ratio] 13.0 mg/mg 10-20 [facility] Work Phone: Laboratory - Hematology and Cell countson 08-15-2021 Erythrocyte distribution width (RBC) [Entitic vol] 41.8 fL 35.1-43.9 [facility] Work Phone: Erythrocyte distribution width (RBC) [Ratio] 12.5 % 11.6-14.6 [facility] Work Phone: Immature granulocytes/100 WBC (Bld) 0.400 % 0.0-0.9 [facility] Work Phone: Comment on above: IG% - Immature Granu locytes (promyelocytes, myelocytes and metamyelocytes) > 1% indicates that a LEFT SHIFT is Present. MCH (RBC) [Entitic mass] 29.9 pg 27.0-32.0 [facility] Work Phone: Nucleated RBC/100 WBC (Bld) [Ratio] 0 % 0-5 [facility] Work Phone: MCHC Auto (RBC) [Mass/Vol]on 08-15-2021 MCHC (RBC) [Mass/Vol] 33.2 g/dL 32-36 [facility] Work Phone: No Panel Informationon 08-15 Estimated GFR (MDRD) Amer 58 mL/min >60 [facility] Work Phone: Comment on above: GFR Calc Estimated GFR (MDRD) Non-Af Amer 48 mL/min >60 [facility] Work Phone: Comment on above: Non- GFR Calc Free Triiodothyronine (T3) pg/dL 3.2 pg/mL 2.18-3.98 [facility] Work Phone: Thyroid Stimulating Hormone (TSH) 2.42 uIU/mL 0.358-3.74 [facility] Work Phone: Platelets bldon 08-15-2021 Platelets (Bld) [#/Vol] 204 10*3/uL 150-450 [facility] Work Phone: Serum or plasma albumin kimber urement (mass/volume)on 08-15-2021 Albumin [Mass/Vol] 3.5 g/dL 3.2-5.0 [facility] Work Phone: Serum or plasma albumin/glob ulin mass ratioon 08-15-2021 Albumin/Globulin [Mass ratio] 1.1 {ratio} 0.9-2.4 [facility] Work Phone: Serum or plasma calcium kimber urement (mass/volume)on 08-15-2021 Calcium [Mass/Vol] 9.1 mg/dL 8.5-10.1 [facility] Work Phone: Serum or plasma creatinine m easurement (mass/volume)on 08-15-2021 Creatinine [Mass/Vol] 1.15 mg/dL 0.55-1.02 [facility] Work Phone: Comment on above: The validity of the calculated GFR & GFRAA in patients over 70 years has not been determined. Clinical correlation is essential. Serum or plasma urea nitroge n measurement (mass/volume)on 08-15-2021 Urea nitrogen [Mass/Vol] 15 mg/dL 7-18 [facility] Work Phone: Thin prep Papanicolaou smear with manual screeningon 08-15-2021 Thin prep Papanicolaou smear with manual screening 17 U/L 15-37 [facility] Work Phone: Thin prep Papanicolaou smear with manual screening 8 5-15 [facility] Work Phone: Basophil percentageon 2021 Bilirubin [Mass/Vol] 0.40 mg/dL 0.20-1.[address] [facility] Work Phone: Comment on above: For patients on eltr ombopag therapy, use of Dimension [place] TBIL is not recommended. Chloride [Moles/Vol] 111 mmol/L 98-[address] [facility] Work Phone: Glucose [Mass/Vol] 194 mg/dL 74-106 [facility] Work Phone: Comment on above: Fasting Glucose resu lt greater than or equal to 126 mg/dL suggests DIABETES MELLITUS per A.D.A. criteria. Potassium [Moles/Vol] 4.2 mmol/L 3.5-5.1 [facility] Work Phone: Protein [Mass/Vol] 6.4 g/dL 6.4-8.2 [facility] Work Phone: Sodium [Moles/Vol] 139 mmol/L 136-145 [facility] Work Phone: Glucose Glucometer (BldC) [M ass/Vol]on 05-05-2021 Glucose [Mass/Vol] 317 mg/dL 74-106 [facility] Work Phone: Comment on above: MANAGEMENT OF PATIEN T CARE PER NURSING PROTOCOL Laboratory - Chemistry and C hemistry - challengeon 05-05-2021 ALP [Catalytic activity/Vol] 69 U/L 45-117 [facility] Work Phone: ALT [Catalytic activity/Vol] 20 U/L 13-56 [facility] Work Phone: CO2 [Moles/Vol] 25.0 mmol/L 21.0-32.0 [facility] Work Phone: Globulin (S) [Mass/Vol] 3.2 g/dL 2.2-4.2 [facility] Work Phone: Urea nitrogen/Creatinine [Mass ratio] 19.8 mg/mg 10-20 [facility] Work Phone: No Panel Informationon 05-05 Estimated Creatinine Clearance Calc 36.55 ml/min [facility] Work Phone: Estimated GFR (MDRD) Amer 64 mL/min >60 [facility] Work Phone: Comment on above: GFR Calc Estimated GFR (MDRD) Non-Af Amer 53 mL/min >60 [facility] Work Phone: Comment on above: Non- GFR Calc Serum or plasma albumin kimber urement (mass/volume)on 05-05-2021 Albumin [Mass/Vol] 3.2 g/dL 3.2-5.0 [facility] Work Phone: Serum or plasma albumin/glob ulin mass ratioon 05-05-2021 Albumin/Globulin [Mass ratio] 1.0 {ratio} 0.9-2.4 [facility] Work Phone: Serum or plasma calcium kimber urement (mass/volume)on 05-05-2021 Calcium [Mass/Vol] 8.9 mg/dL 8.5-10.1 [facility] Work Phone: Serum or plasma creatinine m easurement (mass/volume)on 05-05-2021 Creatinine [Mass/Vol] 1.06 mg/dL 0.55-1.02 [facility] Work Phone: Comment on above: The validity of the calculated GFR & GFRAA in patients over 70 years has not been determined. Clinical correlation is essential. Serum or plasma urea nitroge n measurement (mass/volume)on 05-05-2021 Urea nitrogen [Mass/Vol] 21 mg/dL 7-18 [facility] Work Phone: Thin prep Papanicolaou smear with manual screeningon 05-05-2021 Thin prep Papanicolaou smear with manual screening 18 U/L 15-37 [facility] Work Phone: Thin prep Papanicolaou smear with manual screening 3 5-15 [facility] Work Phone: Basophil percentageon 2021 Cholesterol [Mass/Vol] 156 mg/dL <200 [facility] Work Phone: Comment on above: <200 mg/dL Desirable 200-240 mg/dL Borderline >240 mg/dL High Risk Triglyceride [Mass/Vol] 169 mg/dL <199 [facility] Work Phone: Comment on above: The drugs N-Acetylcy steine and Metamizole may falsely depress this assay.Serum Triglycerides Reference Interval Normal <150 mg/dL Borderline high 150 - 199 mg/dL High 200 - 499 mg/dL Very High > or = 500 mg/dL Serum or plasma cholesterol in HDL measurement (mass/volume)on 05-04-2021 Cholesterol in HDL [Mass/Vol] 65 mg/dL >40 [facility] Work Phone: Comment on above: The drugs N-Acetylcy steine and Metamizole may falsely depress this assay. Reference Range HDL <40 mg/dL Low HDL Cholesterol HDL >or= 60 mg/dL High HDL Cholesterol Serum or plasma cholesterol in VLDL measurement (mass/volume)on 05-04-2021 Cholesterol in VLDL [Mass/Vol] 34 mg/dL 5-40 [facility] Work Phone: Serum or plasma low density lipoprotein (LDL) cholesterol measurement (mass/volume)on 05-04-2021 Cholesterol in LDL [Mass/Vol] 57 mg/dL 0-130 [facility] Work Phone: Absolute lymphocyte counton 05-03-2021 Lymphocytes Auto (Unsp spec) [#/Vol] 2.24 10*3/uL 0.83-4.51 [facility] Work Phone: Basophil percentageon 2021 Basophil percentage 0 SEEN /hpf 0-[address] [facility] Work Phone: Basophils/100 WBC (Bld) 0.3 % 0-1 [facility] Work Phone: Eosinophils/100 WBC (Bld) 0.8 % 0-5 [facility] Work Phone: Neutrophils (Bld) [#/Vol] 8.2 10*3/uL 2.0-7.7 [facility] Work Phone: Neutrophils/100 WBC (Bld) 73.9 % 47-70 [facility] Work Phone: WBC (Bld) [#/Vol] 11.0 10*3/uL 4.4-11.0 [facility] Work Phone: Bilirubin Test strip Ql (U)o n 05-03-2021 Bilirubin Ql (U) Negative Negative [facility] Work Phone: Blood erythrocytes count (nu mber/volume)on 05-03-2021 RBC (Bld) [#/Vol] 4.52 10*6/uL 4.2-5.4 [facility] Work Phone: Blood hemoglobin measurement (mass/volume)on 05-03-2021 Hemoglobin (Bld) [Mass/Vol] 13.9 g/dL 12.0-15.0 [facility] Work Phone: Blood lymphocytes/100 leukoc yteson 05-03-2021 Lymphocytes/100 WBC (Bld) 20.3 % 19-41 [facility] Work Phone: Blood monocytes/100 leukocyt eson 05-03-2021 Monocytes/100 WBC (Bld) 4.1 % 0-10 [facility] Work Phone: Blood platelet mean volumeon 05-03-2021 Platelet mean volume (Bld) [Entitic vol] 9.9 fL 6.2-12.0 [facility] Work Phone: Determination of erythrocyte mean corpuscular volume (MCV)on 05-03-2021 MCV (RBC) [Entitic vol] 84.3 fL 81-99 [facility] Work Phone: Hematocrit Auto (Bld) [Volum e fraction]on 05-03-2021 Hematocrit (Bld) [Volume fraction] 38.1 % 37-47 [facility] Work Phone: Ketones Test strip Ql (U)on 05-03-2021 Ketones Ql (U) Negative Negative [facility] Work Phone: Laboratory - Hematology and Cell countson 05-03-2021 Erythrocyte distribution width (RBC) [Entitic vol] 38.1 fL 35.1-43.9 [facility] Work Phone: Erythrocyte distribution width (RBC) [Ratio] 12.5 % 11.6-14.6 [facility] Work Phone: Immature granulocytes/100 WBC (Bld) 0.600 % 0.0-0.9 [facility] Work Phone: Comment on above: IG% - Immature Granu locytes (promyelocytes, myelocytes and metamyelocytes) > 1% indicates that a LEFT SHIFT is Present. MCH (RBC) [Entitic mass] 30.8 pg 27.0-32.0 [facility] Work Phone: Nucleated RBC/100 WBC (Bld) [Ratio] 0 % 0-5 [facility] Work Phone: MCHC Auto (RBC) [Mass/Vol]on 05-03-2021 MCHC (RBC) [Mass/Vol] 36.5 g/dL 32-36 [facility] Work Phone: Mucus LM Ql (Urine sed)on Mucus Ql (Urine sed) 0 SEEN /hpf [facility] Work Phone: Nitrite Test strip Ql (U)on 05-03-2021 Nitrite Ql (U) Negative Negative [facility] Work Phone: No Panel Informationon 05-03 Troponin I High Sensitivity 6 pg/mL 3.0-54.0 [facility] Work Phone: Comment on above: Please Note: New Maite t Units and Gender Specific Reference Ranges. For more information see Policy Stat Procedure [place] High Sensitivity Troponin (TNIH) and attachments. Platelets bldon 05-03-2021 Platelets (Bld) [#/Vol] 238 10*3/uL 150-450 [facility] Work Phone: Protein Test strip Ql (U)on 05-03-2021 Protein Ql (U) Negative Negative [facility] Work Phone: Squamous epithelial cells de tection in urine sediment by light microscopyon 05-03-2021 Epithelial cells.squamous LM Ql (Urine sed) 0 SEEN /hpf 5-10 [facility] Work Phone: Urine blood detectionon 04-15 RBC Ql (U) Negative Negative [facility] Work Phone: RBC Ql (U) 0 SEEN /hpf 0-5 [facility] Work Phone: Urine clarityon 05-03-2021 Clarity (U) Clear Clear [facility] Work Phone: Urine color determinationon 05-03-2021 Color (U) Yellow Yellow [facility] Work Phone: Urine glucose detectionon Glucose Ql (U) 100 mg/dl Normal [facility] Work Phone: Urine leukocyte esterase det ection by dipstickon 05-03-2021 Leukocyte esterase Test strip Ql (U) Negative Negative [facility] Work Phone: Urine pHon 05-03-2021 pH (U) 7.0 [pH] 5.0 - 8.0 [facility] Work Phone: Urine sediment bacteria coun t by microscopy (number/high power field)on 05-03-2021 Bacteria LM.HPF (Urine sed) [#/Area] 0 /[HPF] None Seen [facility] Work Phone: Urine specific gravity measu rementon 05-03-2021 Specific gravity (U) [Rel density] 1.010 1.002-1.030 [facility] Work Phone: Urobilinogen Auto test strip Ql (U)on 05-03-2021 Urobilinogen Ql (U) Normal mg/dl Normal [facility] Work Phone: Whole blood hemoglobin A1c/t otal hemoglobin ratio (mass fraction)on 05-03-2021 HbA1c (Bld) [Mass fraction] 7.8 % 3.8-5.6 [facility] Work Phone: Comment on above: Normal < 5.7 % Predi abetic 5.7 - 6.4 % Diabetic >or= 6.5 % Please note range changes. Culture, urine Bacteria identified Cx Nom (U) Proteus mirabilis [facility] Work Phone: Bacteria identified Cx Nom (U) Positive [facility] Work Phone: Vital Signs Date Time Vital Sign Value Performing Clinician Jason lara 09-08-2024 11:45-0400 Body height 162.[address] Sugey Simpson DO Work Phone: [facility] 05-05-2021 11:21-0400 Body temperature 97.5 [degF] Dr. Sugey Simpson Work Phone: [facility] Work Phone: 05-05-2021 11:21-0400 Diastolic blood pressure 90 mm[Hg] Dr. Sugey Simpson Work Phone: [facility] Work Phone: 05-05-2021 11:21-0400 Heart rate 88 /min Dr. Sugey Simpson Work Phone: [facility] Work Phone: 05-05-2021 11:21-0400 Respiratory rate 18 /min Dr. Sugey Simpson Work Phone: [facility] Work Phone: 05-05-2021 11:21-0400 SaO2% (BldA) [Mass fraction] 99 % Dr. Sugey Simpson Work Phone: [facility] Work Phone: 05-05-2021 11:21-0400 Systolic blood pressure 174 mm[Hg] Dr. Sugey Simpson Work Phone: [facility] Work Phone: 05-04-2021 15:02-0400 Body mass index (BMI) [Ratio] 33.3 kg/m2 Dr. Sugey Simpson Work Phone: [facility] Work Phone: 05-04-2021 11:33-0400 Body height 162.[address] Sugey Simpson Work Phone: [facility] Work Phone: 05-04-2021 11:33-0400 Body weight 88.[address] Sugey Simpson Work Phone: [facility] Work Phone: Encounters Encounter Date Encounter Type Care Provider Facility Start: 09-08-2024 End: 09-08-[address] Sugey Simpson DO Work Phone: -[facility] Start: 09-08-2024 End: 09-08-[address] Yony Gupta MD -[facility] Start: 09-08-[address] Sugey Simpson DO -Laboratory Specimen Work Phone: Start: 08-15-2024 Non-patient / Non-visit Dr. Gabriela shore MD -[facility] Work Phone: Start: 04-25-2024 End: 04-25-[address] Sugey Simpson DO Work Phone: [facility] Work Phone: Start: 04-25-2024 End: 04-25-[address] Sugey Simpson DO -[facility] Start: 04-25-2024 End: 04-[facility] [facility] Start: 11-19-2023 End: 11-19-2023 [facility] Start: 11-16-2023 End: 11-16-2023 ambulatory [facility] Start: 04-19-2023 End: 04-19-2023 ambulatory [facility] Work Phone: Start: 04-19-2023 End: 04-19-2023 Patient encounter procedure [facility] Start: 10-22-2022 End: 10-22-2022 ambulatory [facility] Work Phone: Start: 10-22-2022 End: 10-22-2022 Patient encounter procedure [facility]-Nuclear Medicine, [facility] Work Phone: Start: 08-31-2022 End: 08-31-2022 ambulatory [facility] Work Phone: Start: 08-31-2022 End: 08-31-2022 Patient encounter procedure [facility]-Outpatient Breast Imaging Work Phone: Start: 08-28-2022 End: 08-28-2022 ambulatory [facility] Work Phone: Start: 08-28-2022 End: 08-28-2022 Patient encounter procedure [facility] Start: 05-19-2022 End: 05-19-2022 ambulatory [facility] Work Phone: Start: 05-19-2022 End: 05-19-2022 Patient encounter procedure [facility]-Laboratory, Specimen Start: 09-04-2021 End: 09-04-2021 [facility] Start: 08-28-2021 End: 08-28-[address] Sugey Simpson Work Phone: [facility]-Outpatient [facility] Start: 08-15-2021 End: 08-15-[address] [facility] Simpson [facility] Start: 06-25-2021 End: 06-25-[address] Sugey Simpson Work Phone: [facility]-Physical Therapy Start: 06-25-[address] Sugey Simpson Work Phone: [facility]-Physical Therapy Start: 05-15-2021 End: 05-15-[address] [facility]uge[facility] Simpson [facility] Start: 05-05-2021 Non-patient / Non-visit Dr. Yuly Simpson Work Phone: [facility] Start: 05-04-2021 Non-patient / Non-visit Dr. Yuly Simpson Work Phone: [facility] Start: 05-03-2021 Non-patient / Non-visit Dr. Yuly Simpson Work Phone: [facility] Start: 05-03-2021 End: 05-05-2021 Evaluation and management of inpatient Dr. Sugey Simpson Work Phone: [facility]-Progressive Care Unit Procedures Date Procedure Procedure Detail Performing Clinician Start: 09-08-[address] Sugey Simpson DO Work Phone: Start: 10-22-2022 Radionuclide gastric emptying study Start: 08-31-2022 Screening mammography Start: 08-28-2021 Screening mammography Jonatan Simpson Work Phone: Start: 05-15-2021 Plain X-ray of shoulder Dr. Sugey iSmpson Work Phone: Start: 05-04-2021 Magnetic resonance angiography of head without contrast Dr. Sugey Simpson Work Phone: Start: 05-04-2021 MRI of brain without contrast Dr. Sugey Simpson Work Phone: Start: 05-04-2021 MRI of neck vessels with contrast Dr. Sugey Simpson Work Phone: Start: 05-03-2021 CT cervical spine wi thout contrast Dr. Sugey Simpson Work Phone: Start: 05-03-2021 CT of head without contrast Dr. Sugey Simpson Work Phone: Urine culture Plan of Treatment Date Care Activity Detail Author Start: 09-08-2024 Bacteria identified in Urine by Culture Urine Culture [facility] Start: 09-08-2024 X-ray of cervical spine Cerv Spine 2 or 3 Views [facility] Start: 09-08-2024 T4 free measurement [facility] Start: 09-08-2024 Thyroid stimulating hormone measurement [facility] Start: 09-08-2024 Triiodothyronine, free measurement [facility] Start: 09-08-2024 Vitamin B12 measurement [facility] Start: 09-08-2024 [facility] Start: 09-08-2024 [facility] Start: 05-05-2021 Patient discharge [facility] Work Phone: Start: 05-03-2021 Following clinical pathway protocol [facility] Work Phone: Start: 05-03-2021 Cardiac monitoring [facility] Work Phone: Start: 05-03-2021 Care regimes management [facility] Work Phone: Start: 05-03-2021 Catheterization of vein [facility] Work Phone: Start: 05-03-2021 Elevation of head of bed [facility] Work Phone: Start: 05-03-2021 Exercises [facility] Work Phone: Start: 05-03-2021 Implementation of planned interventions [facility] Work Phone: Start: 05-03-2021 Notification of physician [facility] Work Phone: Start: 05-03-2021 Oxygen therapy [facility] Work Phone: Start: 05-03-2021 Patient referral to dietitian [facility] Work Phone: Start: 05-03-2021 Referral to occupational therapist [facility] Work Phone: Start: 05-03-2021 Referral to service [facility] Work Phone: Start: 05-03-2021 Speech therapy assessment [facility] Work Phone: Start: 05-03-2021 Tobacco use cessation education [facility] Work Phone: Start: 05-03-2021 [facility] Work Phone: Start: 05-03-2021 Admission procedure [facility] Work Phone: Start: 05-03-2021 Iv infusion hydration each additional hour HYDRATE IV INFUSION ADD-ON [facility] Work Phone: Start: 05-03-2021 Iv infusion therapy prophylaxis/dx ea hour THER/PROPH/DIAG IV INF ADDON [facility] Work Phone: Start: 05-03-2021 Iv infusion therapy/prophylaxis /dx 1st to 1 hr THER/PROPH/DIAG IV INF INIT [facility] Work Phone: Start: 05-03-2021 Ther proph/dx njx ea seql iv push sbst/drug fac TX/PRO/DX INJ SAME DRUG MANAGER NET [facility] Work Phone: Start: 05-03-2021 Therapeutic injection iv push each new drug TX/PRO/DX INJ NEW DRUG ADDON [facility] Work Phone: Start: 05-03-2021 Therapeutic prophylactic/dx injection subq/im THER/PROPH/DIAG INJ SC/IM [facility] Work Phone: Alanine aminotransfe rase [Enzymatic activity/volume] in Serum or Plasma [facility] Albumin [Mass/volume ] in Serum or Plasma [facility] Alkaline phosphatase [Enzymatic activity/volume] in Serum or Plasma [facility] Anion gap in Serum or Plasma [facility] Bilirubin, total measurement [facility] BUN/Creatinine ratio [facility] C reactive protein [Mass/volume] in Serum or Plasma [facility] Calcium [Mass/volume ] in Serum or Plasma [facility] Carbon dioxide, tota l [Moles/volume] in Central venous blood [facility] Creatinine [Mass/vol ume] in Serum or Plasma [facility] Erythrocyte mean cor puscular volume determination [facility] Erythrocyte sediment ation rate [facility] Glucose [Mass/volume ] in Serum or Plasma [facility] Hematocrit [Volume F raction] of Blood [facility] Hemoglobin [Mass/vol ume] in Blood [facility] Hemoglobin A1c/Hemoglobin.total in Blood [facility] Leukocytes [#/volume ] in Blood [facility] Mean corpuscular hem oglobin concentration determination [facility] Mean corpuscular hem oglobin determination [facility] Measurement of renal function [facility] Neutrophil count [facility] Neutrophil percent differential count [facility] Patient Education ED BPV Vertigo [facility] Work Phone: Patient referral [facility] Work Phone: Platelets [#/volume] in Blood [facility] Potassium measurement [facility] Red blood cell count [facility] Red cell distributio n width determination [facility] Serum chloride measurement [facility] Sodium measurement [facility] Thyroglobulin antibo dy measurement [facility] Thyroperoxidase Ab [Units/volume] in Serum or Plasma [facility] Total protein measurement [facility] Troponin T.cardiac [Mass/volume] in Serum or Plasma by High sensitivity method [facility] Urea nitrogen [Mass/ volume] in Serum or Plasma [facility] Urine culture [facility] Immunizations Immunization Date Immunization Notes Care Provider Fa cility 12-12-2020 Covid (Moderna) Dr. Sugey jones Work Phone: [facility] 10-16-2020 influenza, injectabl e, quadrivalent, preservative free [facility] 10-16-2020 influenza, seasonal, injectable Dr. Sugey Simpson Work Phone: [facility] 04-24-2020 Covid (Moderna) Dr. Sugey jones Work Phone: [facility] 03-28-2020 Covid (Moderna) Dr. Sugey jones Work Phone: [facility] Payers Date Payer Category Payer Medicare [id number] 51 [id number] 2023 Self-pay [id number] 2016 Medicare [id number] Unknown [id number] .. [id number] Unknown [id number] . [id number] Unknown [id number] .. [id number] Social History Date Type Detail Facility Start: 05-04-2021 End: 05-04-2021 Tobacco smoking status NHIS Unknown if ever smoked [facility] Start: 11-04-2019 With Family [facility] Start: 05-04-2021 Non-smoker [facility] Start: 1940 Sex Assigned At Female W [facility] Start: 05-04-2021 End: 09-08-2024 Tobacco smoking status NHIS Never smoked tobacco (finding) [facility] Start: 05-05-2024 Sex Female (finding) [facility] Goals Date Patient Goal Desired Activity /State Functional Status Date Assessment Result Facility 05-05-2021 Functional status Chair [facility] Work Phone: 05-05-2021 Functional status Tolerates Activity Poor [facility] Work Phone: Mental Status Date Assessment Result Facility 05-05-2021 Cognitive function Voice/Name [facility] Work Phone: Evaluation note Note Date & Type Note Facility Evaluation note Diagnosis Onset Date Benign paroxysmal positional vertigo acute Vertigo acute [facility] Work Phone: Evaluation note Note Date & Type Note Facility Evaluation note No assessment information availa ble [facility] Work Phone: Hospital Discharge instructions Note Date & Type Note Facility Hospital Discharge instructions [facility] Work Phone: Hospital Discharge instructions Note Date & Type Note Facility Hospital Discharge instructions [facility] Work Phone: Reason for referral (narrative) Note Date & Type Note Facility Reason for referral (narrative) No reason for referral information available [facility] Work Phone: Chief Complaint and Reason for Visit Chief Complaint DIZZINESS Dizziness (cardiology) Dizziness (cardiology) Reason for Visit Benign paroxysmal po sitional vertigo Vertigo Chief Complaint DIZZINESS Dizziness (cardiology) Dizziness (cardiology) Dizziness (cardiology) Reason for Visit Benign paroxysmal po sitional vertigo Vertigo Chief Complaint DIZZINESS Dizziness (cardiology) Dizziness (cardiology) Dizziness (cardiology) VESTIBULAR/RX HERE Reason for Visit Benign paroxysmal po sitional vertigo Vertigo Chief Complaint Dizziness (cardiolog y) Dizziness (cardiology) VESTIBULAR/RX HERE SCREENING Chief Complaint VESTIBULAR/RX HERE SCREENING Chief Complaint SCREENING Chief Complaint SCREENING ABDOMINAL PAIN, GERD, EARLY SATIETY Chief Complaint Admit Date XRAY September 08, 2024 11:4 5am Family History Relationship Condition Age at Onset Recorded Date/T yana mother Malignant neoplasm of colon Unknown father Cerebrovascular accident (CVA) Unknown Cardiac disease Unknown Advance Directives Advance Directive Response Recorded Date/ Time Living Will Yes May 03, 2021 5:45pm Power of Implement Mechanic Yes May 03 5:45pm Advance Directive Response Recorded Date/ Time Name of Medical Power of Implement Mechanic Shawna thompson May 03, 2021 5:45pm Living Will Yes May 03, 2021 5:45pm Power of Implement Mechanic Yes May 03 5:45pm Advance Directive Response Recorded Date/ Time Living Will Yes May 03, 2021 4:45pm Power of Implement Mechanic Yes May 03 4:45pm Summary Purpose Additional Source Comments Goals (unrecognized section and content) Goals may be documented in a n alternate sectionGoals may be documented in an alternate sectionGoals may be documented in an alternate sectionGoals may be documented in an alternate sectionGoals may be documented in an alternate sectionGoals may be documented in an alternate sectionGoals may be documented in an alternate sectionGoals may be documented in an alternate sectionGoals may be documented in an alternate sectionGoals may be documented in an alternate sectionGoals may be documented in an alternate section Care Teams (unrecognized sec tion and content) Team Status: Active Member Role Status Dates Dr. Sugey Simpson DO Family Provider Active Dr. Sugey Simpson DO Primary Care Provider Active Team Status: Inactive Member Role Status Dates Dr. Sugey Simpson DO Primary Care Provider, Attending Fadi cummings Active Team Status: Active Member Role Status Dates Dr. Sugey Simpson DO Primary Care Provide r, Attending Provider, Referring Provider Active Team Status: Inactive Member Role Status Dates Dr. Sugey Simpson DO Primary Care Provide r, Attending Provider, Referring Provider Active Team Status: Active Member Role Status Dates Dr. Sugey Simpson DO Primary Care Provider Active Team Status: Inactive Member Role Status Dates Dr. Sugey Simpson DO Primary Care Provider Active Start: April 25, 2024 End: April 25, 2024 Dr. Sugey Simpson DO Attending Provider Active St art: April 25, 2024 End: April 25, 2024 Dr. Sugey Simpson DO Referring Provider Active St art: April 25, 2024 End: April 25, 2024 Team Status: Active Member Role/Relationship Status Dates Dr. Sugey Simpson DO Primary Care Provider Active Team Status: Inactive Member Role/Relationship Status Dates Dr. Sugey Simpson DO Primary Care Provider Active Start: August 15, 2024 Dr. Gabriela Nair MD Attending Provider Active Start: August 15, 2024 Team Status: Active Member Role/Relationship Status Dates Dr. Sugey Simpson DO Primary Care Provider Active Start: September 08, 2024 Dr. Sugey Simpson DO Attending Provider Active St art: September 08, 2024 Team Status: Active Member Role/Relationship Status Dates Dr. Sugey Simpson DO Primary Care Provider Active Start: September 08, 2024 Dr. Sugey Simpson DO Attending Provider Active St art: September 08, 2024 Team Status: Inactive Member Role/Relationship Status Dates Dr. Sugey Simpson DO Primary Care Provider Active Start: September 08, 2024 End: September 08, 2024 Dr. Yony Gupta MD Attending Provider Active S tart: September 08, 2024 End: September 08, 2024 INFORMATION SOURCE (unrecogn ized section and content) DATE CREATED AUTHOR 05/07/2024 [facility] FOR RECORDS PERTAINING TO PATIENTS WHO ARE OR HAVE BEEN ENROLLED IN A CHEMICAL DEPENDENCY/SUBSTANCEABUSE PROGRAM, SOME INFORMATION MAY BE OMITTED. This clinical summary was aggregated from multiple sources. Caution should be exercised in using it in the provision of clinical care. This summary normalizes information from multiple sources, and as a consequence, information in this document may materially change the coding, format and clinical context of patient data. In addition, data may be omitted in some cases. CLINICAL DECISIONS SHOULD BE BASED ON THE PRIMARY CLINICAL RECORDS. [facility] provides no warranty or guarantee of the accuracy or completeness of information in this document.
== END | disposition home or self-care (01) ==
LOC: BFHLAB 11:19
PROVIDERS: PCP Family Medicine; Visit Provider Family Medicine
DX: N39.0 Urinary tract infection, site not specified (principal); E11.9 Type 2 diabetes mellitus without complications; I10 Essential (primary) hypertension; Z51.81 Encounter for therapeutic drug level monitoring; E53.8 Deficiency of other specified B group vitamins; E03.9 Hypothyroidism, unspecified; R42 Dizziness and giddiness; M79.10 Myalgia, unspecified site; R53.83 Other fatigue; R07.9 Chest pain, unspecified
CPT/HCPCS: 36415; 80053; 82607; 83036; 84439; 84443; 84481; 84484; 85025; 85652; 86140; 86376; 86800

== ENCOUNTER → 2024-09-25 | Outpatient (CLI) | payer MEDICARE, SELFPAY | END | disposition home or self-care (01) | PROVIDERS: PCP Family Medicine; Referring Provider Family Medicine; Visit Provider Family Medicine | DX: M54.12 Radiculopathy, cervical region (principal); M48.02 Spinal stenosis, cervical region | CPT/HCPCS: 72141 ==

== ENCOUNTER 2024-09-27 17:26 | Emergency (ER) | payer MEDICARE, SELFPAY ==
[2024-09-27] VITALS (7 sets, daily range): BP systolic 137–180; BP diastolic 79–88; PULSE 71–87; RESP 18; TEMP 36.5–36.6; O2SAT 99–100; BMI 26.1
--- NOTE | 2024-09-27 17:43 | CT_ITS ---
PROCEDURE: CTA HEAD AND NECK W/ CONTRAST 09/27/2024 REASON FOR EXAM: VERTIGO TECHNIQUE: CTA HEAD AND NECK W/ CONTRAST Multiplanar Sagittal and Coronal images were obtained. CONTRAST: Isovue 370. One or more dose reduction techniques were used (e.g., Automated exposure control, adjustment of the mA and/or kV according to patient size, use of iterative reconstruction technique). RADIATION DOSE SUMMARY: DLP: 1448 MGycm COMPARISON: 04/2021 MRA FINDINGS: The common carotid arteries are patent without evidence of stenosis or injury. Atherosclerosis of the bilateral carotid bulbs/proximal internal carotid arteries without hemodynamically significant stenosis. The cervical vertebral arteries are patent without evidence of injury. Dominant right cervical vertebral artery. The anterior cerebral, anterior communicating, middle cerebral, and posterior cerebral arteries are patent without evidence of occlusion. The intracranial vertebrobasilar system is patent. No abnormal intracranial enhancement. CT/CTA Head AND Neck W/ Contrast IMPRESSION: No acute arterial abnormality of the head or neck. Reading Location: [id number]
[2024-09-27] MEDS: 0.9% Normal Saline (500mL Bag) 500 ML 1000 ML IV (18:05)
[2024-09-27 18:11] LABS: Hematocrit 38.1 % (37-47); Hemoglobin 12.9 g/dL (12.0-15.0); Immature Granulocytes Count 0.030 X10^3/uL (0.0-0.0); Mean Corp Hgb Conc 33.9 g/dL (32-36); Mean Corpuscular Volume 87.2 fL (81-99); Mean Platelet Vol. 10.2 fl (6.2-12.0); NRBC Flagged by Analyzer 0 % (0-5); Platelet Count 252 K/mm3 (150-450); RBC Distribution Width CV 13.0 % (11.6-14.6); RBC Distribution Width SD 41.1 fl (35.1-43.9); Red Blood Count 4.37 M/mm3 (4.2-5.4); White Blood Count 13.8 K/mm3 (4.4-11.0)
--- NOTE | 2024-09-27 18:31 | EDS_ITS ---
HPI History of Present Illness Chief Complaint: General Illness Informant: patient and family Narrative Narrative: He went to [place] for evaluation. Patient lives alone does have a cane and walker use as needed. Reports approximately a month ago had changes to larisa muñoz. She saw her PCP 2 weeks ago found to have a UTI placed on antibiotics. She also developed recurrent vertigo symptoms she is put on meclizine. Patient ran out yesterday. Per daughter patient has been sleeping more. Has been no cough. Patient denies any falls. States symptoms dizziness with getting up. States spinning sensation and off balance. No headache. She states she had 1 emesis this morning. No current nausea. History of hypertension hyperlipidemia diabetes. Reported she has not urinated since this morning. Currently 6 PM. 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 Hearing loss, left Hearing loss, right Non-smoker Asthma Migraines COPD (chronic obstructive pulmonary disease) Hyperlipidemia Hypertension Thyroid disorder Home Medications ?Medication ?Instructions ?Recorded ?Last Taken ?Type levothyroxine 88 mcg tablet 88 mcg PO QDAY 06/30/17 Un known History lisinopril 10 mg tablet 10 mg PO QDAY 06/30/17 Unkno wn History metformin 500 mg tablet 500 mg PO BID 06/30/17 Unkno wn History pravastatin 20 mg tablet 20 mg PO QDAY 06/30/17 Unkno wn History meclizine 12.5 mg tablet 25 mg (2 x 12.5 mg) PO TID P RN PRN 05/05/21 Unknown Rx Dizzyness #21 tabs Allergy/AdvReac Type Severity Reaction Status Date / Time codeine AdvReac Nausea Verified 09/27/24 17:27 Family History Mother Colon cancer Father CVA (cerebral vascular accident) Heart disease Surgical History Hx of right knee surgery H/O bladder repair surgery Hx of appendectomy H/O abdominal hysterectomy Social History Smoking Status: Never smoker alcohol intake: never substance use type: does not use caffeine: Yes what type of physical activity do you participate in: walking seatbelt use: always do you feel safe at home: Yes additional social history: - Retired ROS ROS ED Constitutional Constitutional ED: Denies chills, fever(s) or sweats ENT ENT ED: Denies sore throat Cardiovascular Cardiovascular: Denies chest pain, leg edema, palpitations or racing heartbeat Respiratory/Chest Respiratory/Chest: Denies cough, dyspnea or dyspnea on exertion Gastrointestinal Gastrointestinal: Reports vomiting; Denies abdominal pain, diarrhea or nausea Genitourinary Genitourinary ED: Reports other Details: Decreased urine output. ; Denies dysuria, hematuria or urinary frequency Musculoskeletal Musculoskeletal: Denies back pain, extremity pain or neck pain Integumentary Denies rash or wounds Neurologic Neurologic: Reports weakness and other Details: Vertigo ; Denies headache(s) or paresthesias EXAM Physical Exam Const Vital Signs: 09/27/24 17:27 09/27/24 17:30 09/27/24 18:21 Temperature 97.8 F 97.8 F Temperature Source Oral Oral Pulse Rate 87 87 Respiratory Rate 18 18 Respiratory Pattern Normal Blood Pressure 137/80 H 137/80 H Blood Pressure Mean 99 99 Pulse Ox 100 100 Oxygen Delivery Method Room Air Room Air 09/27/24 18:30 09/27/24 19:00 Temperature 97.8 F 97.7 F L Temperature Source Oral Oral Pulse Rate 87 71 Respiratory Rate 18 18 Respiratory Pattern Blood Pressure 137/80 H 180/84 H Blood Pressure Mean 99 116 Pulse Ox 100 100 Oxygen Delivery Method Room Air Room Air Positive well nourished and well developed General Appearance ED: well developed and NAD HEENT Reports moist mucous membranes normocephalic and atraumatic Eyes Eyes Narrative: No nystagmus General Eye ED: Yes normal appearance of both eyes Neck full ROM Chest Wall Chest: Negative for tenderness Resp normal respiratory effort and normal air movement Effort and Inspection: symmetric chest movement; Negative for respiratory distress Cardio regular rate, regular rhythm and no murmurs Peripheral Pulses: pulses 2+ throughout GI normal to inspection, nondistended, normoactive bowel sounds and non-tender Palpation: Negative for guarding or rebound tenderness present Extremity normal to inspection General Extremety ED: Negative for edema or tenderness General Extremity: Negative for edema Neuro oriented x3, CN's II-XII intact bilaterally and no sensory deficits noted Neuro Narrative: Positive Naoma-Hallpike on the right. Sensorium / Orientation: awake and alert Skin no rashes or lesions noted and no wounds MDM MDM MDM Narrative Medical decision making narrative: Interventions / MDM: Differential diagnosis: Diagnosis considered but do not suspect: N/A My EKG interpretation: N/A Imaging independently reviewed and interpreted by myself: N/A External documents reviewed: N/A Test considered but not ordered:N/A ED course: Presenting with vertiginous symptoms for 2 weeks positive Andrea- Hallpike on the right. Also reports increasing weakness decreased urine output per daughters. Will check labs and urine. Bladder scan ordered. CT angiogram head and neck for further evaluation. IV Reglan ordered. 1899: Patient labs creatinine 2.08 GFR 23. She was given 500 cc bolus. Last creatinine was 1.3. Discussed with CT department will still obtain CT angiogram as I will continue to hydrate her with additional liter of fluids. White count 13.8. Bladder scan returned at 190. Re-evaluation: stable Disposition discussed with patient/family/significant other: Case discussed with consulting clinician: N/A This note was generated with [employer] dictation software. It may contain incorrect words, spelling, and punctuation that were not noted in checking the note before signing. Lab Data Labs: Laboratory Results - last 24 hr 09/27/24 09/27/24 17:56 19:23 WBC 13.8 H RBC 4.37 Hgb 12.9 Hct 38.1 MCV 87.2 MCH 29.5 MCHC 33.9 RDW Std Deviation 41.1 RDW Coeff of Jayla 13.0 Plt Count 252 MPV 10.2 Immature Gran % (Auto) 0.200 Neut % (Auto) 80.9 H Lymph % (Auto) 12.7 L [place] % (Auto) 5.9 Eos % (Auto) 0.1 Baso % (Auto) 0.2 Absolute Neuts (auto) 11.2 H Absolute Lymphs (auto) 1.76 Nucleated RBC % 0 Sodium 137 Potassium 5.3 H Chloride 104 Carbon Dioxide 16.9 L Anion Gap 16 H BUN 44 H Creatinine 2.08 H Estim Creat Clear Calc 18.82 L Est GFR (MDRD) Non-Af 23 L BUN/Creatinine Ratio 21.3 H Glucose 194 H Calcium 10.3 Urine Color Yellow Urine Clarity Clear Urine pH 5.0 Ur Specific [place] 1.010 Urine Protein 15 H Urine Glucose (UA) Normal Urine Ketones Negative Urine Occult Blood Negative Urine Nitrite Negative Urine Bilirubin Negative Urine Urobilinogen Normal Ur Leukocyte Esterase 25 H Urine RBC 0-5 SEEN Urine WBC 0-5 SEEN Ur Squamous Epith Cells 0-5 SEEN Urine Bacteria 0 SEEN Urine Mucus 0 SEEN Discharge Plan Triage Chief Complaint: General Illness ED Provider: Darrion Mesa Dx/Rx/DC Orders Prescriptions: No Action metformin 500 mg tablet 500 mg PO BID levothyroxine 88 mcg tablet 88 mcg PO QDAY pravastatin 20 mg tablet 20 mg PO QDAY lisinopril 10 mg tablet 10 mg PO QDAY meclizine 12.5 mg tablet 25 mg PO TID PRN PRN (Reason: Dizzyness) Qty: 21 0RF Primary Care Provider: Sugey Simpson Referrals: Sugey Simpson DO [Primary Care Provider] - Print Language: Slovenian
--- NOTE | 2024-09-27 18:31 | EX.ED.DYSGE1 ---
HPI History of Present Illness Chief Complaint: General Illness Informant: patient and family Narrative Narrative: He went to [place] for evaluation. Patient lives alone does have a cane and walker use as needed. Reports approximately a month ago had changes to behavior. She saw her PCP 2 weeks ago found to have a UTI placed on antibiotics. She also developed recurrent vertigo symptoms she is put on meclizine. Patient ran out yesterday. Per daughter patient has been sleeping more. Has been no cough. Patient denies any falls. States symptoms dizziness with getting up. States spinning sensation and off balance. No headache. She states she had 1 emesis this morning. No current nausea. History of hypertension hyperlipidemia diabetes. Reported she has not urinated since this morning. Currently 6 PM. 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 Hearing loss, left Hearing loss, right Non-smoker Asthma Migraines COPD (chronic obstructive pulmonary disease) Hyperlipidemia Hypertension Thyroid disorder Home Medications ?Medication ?Instructions ?Recorded ?Last Taken ?Type levothyroxine 88 mcg tablet 88 mcg PO QDAY 06/30/17 Unknown History metformin 500 mg tablet 500 mg PO BID 06/30/17 Unknown History albuterol sulfate 90 mcg/actuation inhalation 09/27/24 Unknown History aerosol inhaler ciprofloxacin HCl 500 mg tablet 500 mg PO BID 09/27/24 Unknown History citalopram 10 mg tablet 10 mg PO DAILY 09/27/24 Unknown History lisinopril 5 mg tablet 5 mg PO DAILY 09/27/24 Unknown History meclizine 12.5 mg tablet 12.5 mg PO BID PRN dizziness #30 09/27/24 Unknown Rx tabs meloxicam 15 mg tablet 15 mg PO DAILY 09/27/24 Unknown History memantine 5 mg tablet 5 mg PO BID 09/27/24 Unknown History metformin 500 mg tablet,extended 500 mg PO BID 09/27/24 Unknown History release 24 hr omeprazole 20 mg capsule,delayed 20 mg PO BID 09/27/24 Unknown History release pravastatin 40 mg tablet 40 mg PO DAILY 09/27/24 Unknown History Allergy/AdvReac Type Severity Reaction Status Date / Time codeine AdvReac Nausea Verified 09/27/24 17:27 Family History Mother Colon cancer Father CVA (cerebral vascular accident) Heart disease Surgical History Hx of right knee surgery H/O bladder repair surgery Hx of appendectomy H/O abdominal hysterectomy Social History Smoking Status: Never smoker alcohol intake: never substance use type: does not use caffeine: Yes what type of physical activity do you participate in: walking seatbelt use: always do you feel safe at home: Yes additional social history: - Retired ROS ROS ED Constitutional Constitutional ED: Denies chills, fever(s) or sweats ENT ENT ED: Denies sore throat Cardiovascular Cardiovascular: Denies chest pain, leg edema, palpitations or racing heartbeat Respiratory/Chest Respiratory/Chest: Denies cough, dyspnea or dyspnea on exertion Gastrointestinal Gastrointestinal: Reports vomiting; Denies abdominal pain, diarrhea or nausea Genitourinary Genitourinary ED: Reports other Details: Decreased urine output. ; Denies dysuria, hematuria or urinary frequency Musculoskeletal Musculoskeletal: Denies back pain, extremity pain or neck pain Integumentary Denies rash or wounds Neurologic Neurologic: Reports weakness and other Details: Vertigo ; Denies headache(s) or paresthesias EXAM Physical Exam Const Vital Signs: 09/27/24 17:27 09/27/24 17:30 09/27/24 18:21 Temperature 97.8 F 97.8 F Temperature Source Oral Oral Pulse Rate 87 87 Respiratory Rate 18 18 Respiratory Pattern Normal Blood Pressure 137/80 H 137/80 H Blood Pressure Mean 99 99 Pulse Ox 100 100 Oxygen Delivery Method Room Air Room Air 09/27/24 18:30 09/27/24 19:00 09/27/24 20:00 Temperature 97.8 F 97.7 F L 97.7 F L Temperature Source Oral Oral Oral Pulse Rate 87 71 72 Respiratory Rate 18 18 18 Respiratory Pattern Blood Pressure 137/80 H 180/84 H 177/79 H Blood Pressure Mean 99 116 111 Pulse Ox 100 100 100 Oxygen Delivery Method Room Air Room Air Room Air 09/27/24 21:00 09/27/24 21:11 Temperature 97.7 F L Temperature Source Pulse Rate 79 80 Respiratory Rate 18 Respiratory Pattern Blood Pressure 154/88 H 154/88 H Blood Pressure Mean 107 110 Pulse Ox 100 99 Oxygen Delivery Method Positive well nourished and well developed General Appearance ED: well developed and NAD HEENT Reports moist mucous membranes normocephalic and atraumatic Eyes Eyes Narrative: No nystagmus General Eye ED: Yes normal appearance of both eyes Neck full ROM Chest Wall Chest: Negative for tenderness Resp normal respiratory effort and normal air movement Effort and Inspection: symmetric chest movement; Negative for respiratory distress Cardio regular rate, regular rhythm and no murmurs Peripheral Pulses: pulses 2+ throughout GI normal to inspection, nondistended, normoactive bowel sounds and non-tender Palpation: Negative for guarding or rebound tenderness present Extremity normal to inspection General Extremety ED: Negative for edema or tenderness General Extremity: Negative for edema Neuro oriented x3, CN's II-XII intact bilaterally and no sensory deficits noted Neuro Narrative: Positive [place]pike on the right. Sensorium / Orientation: awake and alert Skin no rashes or lesions noted and no wounds MDM MDM MDM Narrative Medical decision making narrative: Interventions / MDM: Differential diagnosis: Dehydration, electrolyte abnormalities, vertigo Diagnosis considered but do not suspect: Intracranial hemorrhage, cerebrovascular insufficiency however CT negative. My EKG interpretation: N/A Imaging independently reviewed and interpreted by myself: CT angiogram head and neck: No acute process. External documents reviewed: N/A Test considered but not ordered:N/A ED course: Presenting with vertiginous symptoms for 2 weeks positive [place]-Hallpike on the right. Also reports increasing weakness decreased urine output per daughters. Will check labs and urine. Bladder scan ordered. CT angiogram head and neck for further evaluation. IV Reglan ordered. Bladder scan returned at 190. 1900: Patient labs creatinine 2.08 GFR 23. She was given 500 cc bolus. Last creatinine was 1.3. Discussed with CT department will still obtain CT angiogram as I will continue to hydrate her with additional liter of fluids. White count 13.8. CT angiogram head and neck were negative. Reevaluation clinically is feeling better. She is ambulated with no return of symptoms without any assistance. I refilled her meclizine. Discussed continue oral fluids for hydration. They will follow-up with PCP to recheck labs in the outpatient. All questions were answered. Re-evaluation: stable Disposition discussed with patient/family/significant other: Patient and family Case discussed with consulting clinician: N/A This note was generated with [employer] dictation software. It may contain incorrect words, spelling, and punctuation that were not noted in checking the note before signing. Lab Data Attestation: I reviewed the patient's lab results. Labs: Laboratory Results - last 24 hr 09/27/24 09/27/24 17:56 19:23 WBC 13.8 H RBC 4.37 Hgb 12.9 Hct 38.1 MCV 87.2 MCH 29.5 MCHC 33.9 RDW Std Deviation 41.1 RDW Coeff of [place]la 13.0 Plt Count 252 MPV 10.2 Immature Gran % (Auto) 0.200 Neut % (Auto) 80.9 H Lymph % (Auto) 12.7 L [place] % (Auto) 5.9 Eos % (Auto) 0.1 Baso % (Auto) 0.2 Absolute Neuts (auto) 11.2 H Absolute Lymphs (auto) 1.76 Nucleated RBC % 0 Sodium 137 Potassium 5.3 H Chloride 104 Carbon Dioxide 16.9 L Anion Gap 16 H BUN 44 H Creatinine 2.08 H Estim Creat Clear Calc 18.82 L Est GFR (MDRD) Non-Af 23 L BUN/Creatinine Ratio 21.3 H Glucose 194 H Calcium 10.3 Urine Color Yellow Urine Clarity Clear Urine pH 5.0 Ur Specific [place] 1.010 Urine Protein 15 H Urine Glucose (UA) Normal Urine Ketones Negative Urine Occult Blood Negative Urine Nitrite Negative Urine Bilirubin Negative Urine Urobilinogen Normal Ur Leukocyte Esterase 25 H Urine RBC 0-5 SEEN Urine WBC 0-5 SEEN Ur Squamous Epith Cells 0-5 SEEN Urine Bacteria 0 SEEN Urine Mucus 0 SEEN Radiography Diagnostic Testing: Clinical Impression(s) from Imaging Studies Head/Neck CTA 09/27/24 17:43 IMPRESSION: No acute arterial abnormality of the head or neck. Reading Location: [facility] Discharge Plan Triage Chief Complaint: General Illness ED Provider: Darrion Mesa Dx/Rx/DC Orders Clinical Impression: Vertigo, Type 2 diabetes mellitus, Acute on chronic renal insufficiency, Dehydration Instructions: Vertigo Inner Ear Problems, ED Dehydration (Adult), ED Renal Insufficiency Prescriptions: New meclizine 12.5 mg tablet 12.5 mg PO BID PRN (Reason: dizziness) Qty: 30 0RF No Action metformin 500 mg tablet 500 mg PO BID levothyroxine 88 mcg tablet 88 mcg PO QDAY citalopram 10 mg tablet 10 mg PO DAILY ciprofloxacin HCl 500 mg tablet 500 mg PO BID lisinopril 5 mg tablet 5 mg PO DAILY albuterol sulfate 90 mcg/actuation HFA aerosol inhaler inhalation pravastatin 40 mg tablet 40 mg PO DAILY meloxicam 15 mg tablet 15 mg PO DAILY omeprazole 20 mg capsule,delayed release(DR/EC) 20 mg PO BID metformin 500 mg tablet extended release 24 hr 500 mg PO BID memantine 5 mg tablet 5 mg PO BID Primary Care Provider: Sugey Simpson Referrals: Sugey Simpson DO [Primary Care Provider] - 1 Week Activity Restrictions/Additional Instructions: CT angiogram head and neck negative. Labs significant creatinine of 2.08, previously 1.35 over 2 weeks ago. You are given a liter and half of fluids in the ED. Continue oral fluids for hydration. Symptoms are improving with medications. Continue meclizine as needed. Follow-up with your PCP in 1 week to recheck labs. Print Language: Cymro Disposition Disposition: Home, Self Care Discharge Date/Time: 09/27/24 21:20
[2024-09-27 18:47] LABS: Anion Gap 16 (5-15); BUN 44 mg/dL (4-19); BUN/Creat Ratio 21.3 RATIO (10-20); Calcium,Total 10.3 mg/dL (7.6-11.0); Carbon Dioxide 16.9 mmol/L (21.0-32.0); Chloride 104 mmol/L (98-108); Estimated Creatinine Clearance 18.82 ml/min (50-250); Glucose 194 mg/dL (70-99); Potassium 5.3 mmol/L (3.3-5.1)
[2024-09-27] MEDS: 0.9% Normal Saline (1000mL) 1,000 ML 999 ML IV (19:22)
[2024-09-27 19:29] LABS: Mucous, Urine 0 SEEN /hpf (<or=2+)
[2024-09-27 19:31] LABS: Color, Urine Yellow (Yellow); Glucose, Dipstick Normal (Normal); Ketone-Dipstick Negative (Negative); Leukocyte Esterase-Dipstick 25 /ul (Negative); Nitrite-Dipstick Negative (Negative); Occult Blood-Urine Negative /ul (Negative); Protein-Dipstick 15 mg/dl (Negative); Specific Gravity, Urine 1.010 (1.002-1.030); Urine Bilirubin Dipstick Negative (Negative)
[2024-09-27 19:47] LABS: Red Blood Cells-Urine 0-5 SEEN /hpf (0-5); Squamous Epithelial Cells - UA 0-5 SEEN /hpf (5-10)
== END 2024-09-27 21:20 | disposition home or self-care (01) ==
PROVIDERS: Emergency Provider Emergency Medicine; PCP Family Medicine; Visit Provider Emergency Medicine
DX: R42 Dizziness and giddiness (principal); E11.22 Type 2 diabetes mellitus with diabetic chronic kidney disease; E86.0 Dehydration; I10 Essential (primary) hypertension; N28.9 Disorder of kidney and ureter, unspecified; Z79.84 Long term (current) use of oral hypoglycemic drugs; Z79.899 Other long term (current) drug therapy
CPT/HCPCS: 70496; 70498; 80048; 81001; 85025; 96361; 96374; 99283; Q9967; A4216

== ENCOUNTER → 2024-10-05 | Outpatient (CLI) | payer MEDICARE, SELFPAY ==
[2024-10-05 15:14] LABS: Hematocrit 36.6 % (37-47); Hemoglobin 12.1 g/dL (12.0-15.0); Immature Granulocytes Count 0.040 X10^3/uL (0.0-0.0); Mean Corp Hgb Conc 33.1 g/dL (32-36); Mean Corpuscular Volume 88.8 fL (81-99); Mean Platelet Vol. 10.4 fl (6.2-12.0); NRBC Flagged by Analyzer 0 % (0-5); Platelet Count 230 K/mm3 (150-450); RBC Distribution Width CV 13.1 % (11.6-14.6); RBC Distribution Width SD 42.7 fl (35.1-43.9); Red Blood Count 4.12 M/mm3 (4.2-5.4); White Blood Count 9.4 K/mm3 (4.4-11.0)
[2024-10-05 17:15] LABS: AST(SGOT) 22 U/L (<=31); Alanine Aminotransfer ALT/SGPT 15 U/L (<=34); Albumin, Serum 4.2 g/dL (3.4-4.8); Alkaline Phosphatase 39 U/L (35-104); Anion Gap 15 (5-15); BUN 21 mg/dL (4-19); BUN/Creat Ratio 17.3 RATIO (10-20); Calcium,Total 10.0 mg/dL (7.6-11.0); Carbon Dioxide 19.5 mmol/L (21.0-32.0); Chloride 103 mmol/L (98-108); Globulin 2.1 g/dL (2.2-4.2); Glucose 85 mg/dL (70-99); Potassium 5.0 mmol/L (3.3-5.1)
== END | disposition home or self-care (01) ==
LOC: BFHLAB 11:40
PROVIDERS: PCP Family Medicine; Visit Provider Family Medicine
DX: R42 Dizziness and giddiness (principal); Z51.81 Encounter for therapeutic drug level monitoring
CPT/HCPCS: 36415; 80053; 85025

== ENCOUNTER → 2024-11-28 | Outpatient (CLI) | payer MEDICARE, SELFPAY ==
--- NOTE | 2024-11-28 15:07 | BI_ITS ---
EXAM: SCRN MAMM (CAD)W/SIMON BILAT DATE: 11/28/2024 CLINICAL HISTORY: F, Age 84 y/o , SCREENING No family history. TECHNIQUE: Procedure Code: [id number] Modality: MG Procedure: SCRN MAMM (CAD)W/SIMON BILAT COMPARISON: Prior exam(s) dated November 19, 2023.. FINDINGS: TISSUE DENSITY: The breasts are almost entirely fatty. Bilateral Breast Mammographic Findings: No significant masses, calcifications or other abnormalities are identified. Stable 5 mm well-defined nodule in the upper lateral aspect of the left breast suggestive of a small lymph node. No suspicious masses, areas of developing architectural distortion, or suspicious calcifications. There has been no significant interval change. BI/SCRN MAMM (CAD)W/SIMON BILAT IMPRESSION: Stable bilateral screening mammogram. OVERALL FINAL ASSESSMENT BI-RADS 2: BENIGN RECOMMENDATION: Routine annual follow-up in 1 Year Additional Recommendation none A letter with findings and recommendations will be mailed to the patient. Reading Location: [place] [id number]
== END | disposition home or self-care (01) ==
LOC: OPBI 15:06
PROVIDERS: PCP Family Medicine; Referring Provider Family Medicine; Visit Provider Family Medicine
DX: Z12.31 Encounter for screening mammogram for malignant neoplasm of breast (principal)
CPT/HCPCS: 77063; 77067